=== PATIENT | male | born 1945 | race Caucasian/White ===

== ENCOUNTER → 2016-07-03 | Outpatient (CLI) | payer MEDICARE | END | disposition home or self-care (01) | LOC: GMAB 10:32 | PROVIDERS: ATTEND Family Medicine | DX: Z12.5 Encounter for screening for malignant neoplasm of prostate (principal); I10 Essential (primary) hypertension | CPT/HCPCS: 84443; G0103 ==

== ENCOUNTER → 2016-07-04 | Outpatient (CLI) | payer MEDICARE | END | disposition home or self-care (01) | LOC: GMAB 13:15 | PROVIDERS: ATTEND Family Medicine | DX: E53.8 Deficiency of other specified B group vitamins (principal); E61.1 Iron deficiency ==

== ENCOUNTER → 2016-10-29 | Outpatient (CLI) | payer MEDICARE | END | disposition home or self-care (01) | LOC: GMAB 11:19 | PROVIDERS: ATTEND Family Medicine | DX: D50.8 Other iron deficiency anemias (principal) ==

== ENCOUNTER → 2016-12-02 | Outpatient (CLI) | payer MEDICARE | END | disposition home or self-care (01) | LOC: YCHH 13:07 | PROVIDERS: ATTEND Family Medicine | DX: D64.9 Anemia, unspecified (principal) ==

== ENCOUNTER → 2016-12-03 | Outpatient (CLI) | payer MEDICARE | LOC: SL 21:30 | PROVIDERS: ATTEND Family Medicine | DX: G47.33 Obstructive sleep apnea (adult) (pediatric) (principal); G47.61 Periodic limb movement disorder; F51.09 Other insomnia not due to a substance or known physiological condition; I50.9 Heart failure, unspecified; I10 Essential (primary) hypertension ==

== ENCOUNTER → 2016-12-30 | Outpatient (CLI) | payer MEDICARE | END | disposition home or self-care (01) | LOC: YCHH 14:35 | PROVIDERS: ATTEND Family Medicine | DX: I50.9 Heart failure, unspecified (principal); D50.8 Other iron deficiency anemias; E11.9 Type 2 diabetes mellitus without complications ==

== ENCOUNTER → 2017-01-06 | Outpatient (CLI) | payer MEDICARE | END | disposition home or self-care (01) | LOC: YCHH 09:26 | PROVIDERS: ATTEND Family Medicine | DX: D64.9 Anemia, unspecified (principal) ==

== ENCOUNTER → 2017-01-13 | Outpatient (CLI) | payer MEDICARE | END | disposition home or self-care (01) | LOC: YCHH 13:39 | PROVIDERS: ATTEND Family Medicine | DX: D64.9 Anemia, unspecified (principal) ==

== ENCOUNTER 2017-01-16 04:08 | Emergency (ER) | payer MEDICARE ==
[2017-01-16] MEDS ORDERED: SODIUM CHLORIDE 0.9% (FLUSH) 10 ML SYG IV PRN (04:20)
--- NOTE | 2017-01-16 04:29 | ED.PDOC ---
History of Present Illness - General Chief Complaint: Respiratory Problem Stated Complaint: resp distress Time Seen by Provider: 01/16/17 04:20 Source: patient, EMS notes reviewed, family Exam Limitations: no limitations Additional Information: THIS PATIENT IS BROUGHT BY AMBULANCE AFTER HE IS FOUND CONFUSED AT THE HOUSE. HE HAS COPD AND USES BI-PAP AT HOME BUT TONIGHT HE DIDN'T USE IT. HE IS A NON SMOKER AND HAS BEEN INTUBATED BEFORE. HE RECEIVED SOLU MEDROL 125 MG BY THE MEDICS AND WAS PLACED ON NIPPV EN ROUTE. HE SEEMS ALERT AND ANSWERS QUESTIONS APPROPRIATELY ON ARRIVAL. HE IS TACHYCARDIC. - History of Present Illness Timing/Duration: 1 hour Severity: severe Activities at Onset: sleep Possible Cause: chronic episodes Improving Factors: nothing Worsening Factors: nothing Associated Symptoms: lightheadedness Respiratory Risk Factors: exposure to allergen, pollen Allergies/Adverse Reactions: Allergies NO KNOWN ALLERGY Allergy (Verified 01/16/17 04:19) Home Medications: Ambulatory Orders Albuterol Sulfate Nebs [Proventil Nebs] 2.5 mg INH BID 03/13/15 Albuterol Sulfate Nebs [Proventil Nebs] 2.5 mg INH QID 03/13/15 Aspirin [Goodsense Aspirin] 325 mg PO DAILY 03/13/15 Diazepam [Valium] 1 mg PO BEDTIME 03/13/15 Diltiazem HCl [Cardizem] 60 mg PO TID 03/13/15 Formoterol Fumarate [Foradil Aerolizer] 12 mcg IN BID 03/13/15 Furosemide [Lasix] 40 mg PO BID 03/13/15 Lisinopril [Prinivil] 5 mg PO DAILY 03/13/15 Metformin HCl [Glucophage] 500 mg PO BID 03/13/15 Metoprolol Succinate [Toprol XL] 25 mg PO BID 03/13/15 Prednisolone [Millipred] 5 mg PO PRN PRN 03/13/15 Roflumilast [Daliresp] 500 mcg PO DAILY 03/13/15 Simvastatin [Zocor] 10 mg PO BEDTIME 03/13/15 Spironolactone [Aldactone] 25 mg PO DAILY 03/13/15 Tamsulosin HCl [Flomax] 0.4 mg PO BEDTIME 03/13/15 Tiotropium [place] Monohydrate [Spiriva Handihaler] 18 mcg IN DAILY 03/13/15 raNITIdine HCL [Zantac] 150 mg PO DAILY 03/13/15 Acetaminophen W/ Codeine [Tylenol w/Codeine 300-30 mg] 1 tab PO Q4HR PRN #30 tab 07/17/15 Review of Systems - Review of Systems Constitutional: States: no symptoms reported EENTM: States: no symptoms reported Respiratory: States: short of breath Cardiology: States: palpitations Genitourinary: States: no symptoms reported Musculoskeletal: States: no symptoms reported Skin: States: no symptoms reported Neurological: States: anxiety Endocrine: States: no symptoms reported Hematologic/Lymphatic: States: no symptoms reported All other Systems: Reviewed and Negative, No Change from Baseline Past Medical History (General) - Patient Medical History Hx Seizures: No Hx Stroke: No Hx Asthma: No Hx of COPD: Yes Hx Cardiac Disorders: No Hx Congestive Heart Failure: No Hx Pacemaker: No Hx Hypertension: Yes Hx Diabetes: Yes Hx Gastroesophageal Reflux: Yes Hx MRSA: No - Vaccination History Hx Tetanus, Diphtheria Vaccination: No Hx Influenza Vaccination: Yes - 2014 Hx Pneumococcal Vaccination: No - Social History Hx Tobacco Use: Yes - Quit 2009 Hx Alcohol Use: No Hx Substance Use: No Hx Physical Abuse: No Hx Emotional Abuse: No Family Medical History - Family History Father Family History: No Known Physical Exam - Physical Exam General Appearance: Obvious distress, Restless, Other - MODERATE RESPIRATORY DISTRESS Eyes, Ears, Nose, Throat Exam: PERRL/EOMI Neck: non-tender, supple, normal inspection, other - NO JVD NOTED Respiratory: respiratory distress, decreased breath sounds, rhonchi Cardiovascular/Chest: normal peripheral pulses, regular rate, rhythm, no edema, no gallop, no JVD, no murmur Peripheral Pulses: radial,right: 2+, radial,left: 2+ Gastrointestinal/Abdominal: normal bowel sounds, non tender, soft, no organomegaly, no pulsatile mass Rectal Exam: deferred Extremity: normal range of motion, normal inspection Neurologic: no motor/sensory deficits, alert, normal mood/affect, oriented x 3 Skin Exam: normal color Lymphatic: no adenopathy Progress - Progress Progress: 01/16/17 04:42 ABG'S: PH OF 7.18, PCO2 63, PO2 100 EKG: HR OF 133, WY INTERVAL OF 166, QRS OF 80, QTC OF 389, AXES OF -37 DEGREES , IMPRESSION: SINUS TACHYCARDIA NO ACUTE INJURY PATTERN 01/16/17 05:48 THE PATIENT SEEMS MORE COMFORTABLE BUT ITCHING. LAB IS REPORTED WBC OF 17.4 WITH 77% SEGS, H/H 9.7/31, CMP WITH A CREAT OF 2.3 AND A BUN OF 107 AND POTASSIUM 7.1 01/16/17 05:52 MADE ARRANGEMENT TO TRANSFER TO [facility] AND DR. MICA EPPS ACCEPTED. THE FAMILY NOW DESIRES TO BE TRANSFERRED TO [place], [place] 01/16/17 06:[address] LAZCANO AT [facility] AND ACCEPTED TRANSFER. - EKG/XRAY/CT XRAY: chest - NO ACUTE PROCESS NOTED Departure - Departure Clinical Impression: COPD exacerbation, Hypercarbia, Hyperkalemia, Acute kidney injury superimposed on chronic kidney disease Time of Disposition: 06:04 Disposition: Transfer to Hospital Condition: Poor Departure Forms: ED Discharge - Pt. Copy, Patient Portal Self Enrollment Referrals: Rob Griffith MD [Primary Care Provider] - 1-2 Weeks Home Medications: Ambulatory Orders Albuterol Sulfate Nebs [Proventil Nebs] 2.5 mg INH BID 03/13/15 Albuterol Sulfate Nebs [Proventil Nebs] 2.5 mg INH QID 03/13/15 Aspirin [Goodsense Aspirin] 325 mg PO DAILY 03/13/15 Diazepam [Valium] 1 mg PO BEDTIME 03/13/15 Diltiazem HCl [Cardizem] 60 mg PO TID 03/13/15 Formoterol Fumarate [Foradil Aerolizer] 12 mcg IN BID 03/13/15 Furosemide [Lasix] 40 mg PO BID 03/13/15 Lisinopril [Prinivil] 5 mg PO DAILY 03/13/15 Metformin HCl [Glucophage] 500 mg PO BID 03/13/15 Metoprolol Succinate [Toprol XL] 25 mg PO BID 03/13/15 Prednisolone [Millipred] 5 mg PO PRN PRN 03/13/15 Roflumilast [Daliresp] 500 mcg PO DAILY 03/13/15 Simvastatin [Zocor] 10 mg PO BEDTIME 03/13/15 Spironolactone [Aldactone] 25 mg PO DAILY 03/13/15 Tamsulosin HCl [Flomax] 0.4 mg PO BEDTIME 03/13/15 Tiotropium [place] Monohydrate [Spiriva Handihaler] 18 mcg IN DAILY 03/13/15 raNITIdine HCL [Zantac] 150 mg PO DAILY 03/13/15 Acetaminophen W/ Codeine [Tylenol w/Codeine 300-30 mg] 1 tab PO Q4HR PRN #30 tab 07/17/15 Critical Care Note - Critical Care Note Total Time (mins): 45 Comments: CRITICAL EVENT: DYSPNEA CRITICAL FINDINGS: HYPERCARBIA. HYPERKALEMIA, RENAL FAILURE CRITICAL ACTIONS: NIPPV, KAYEXALYTE, DEXTROSE 50%, INSULIN AND SODIUM BICARBONATE, TRANSFER TO HIGHER LEVEL OF CARE. CRITICAL TIME: 45 MINUTES SYSTEMS AT RISK: CARDIOVASCULAR, NEUROLOGICAL
--- NOTE | 2017-01-16 04:38 | RAD ---
Examination: XR CHEST 1 VIEW dated 01/16/2017 4:21 AM CDT History: resp distress Comparison: 07/20/2015 Technique: Frontal view of the chest Findings: Scattered areas of atelectasis or chronic scarring at the lung bases. No focal consolidation. No pneumothorax or pleural effusion. The cardiomediastinal silhouette is within normal limits. Impression: Scattered atelectasis or chronic scarring at the lung bases. Otherwise no acute disease. Electronically signed by: Rolf Rocha MD 01/16/2017 4:37 AM CDT
[2017-01-16] MEDS ORDERED: diphenhydrAMINE HCL 50 MG/ML VIAL ONE (04:39)
[2017-01-16] MEDS ORDERED: diphenhydrAMINE HCL 50 MG/ML VIAL IV ONE ×2 (04:40→05:17)
[2017-01-16] MEDS ORDERED: IPRATROPIUM/ALBUTEROL 3 ML VIAL NEB ONE (04:47)
[2017-01-16] MEDS ORDERED: DEXTROSE 50% 25 GM/50 ML SYG IV ONE (05:05)
[2017-01-16] MEDS ORDERED: INSULIN, REG.(HUMAN) 100 U/ML VIAL IV ONE (05:05)
[2017-01-16] MEDS ORDERED: SODIUM BICARBONATE VIAL 50 MEQ/50 ML VIAL IV ONE (05:05)
[2017-01-16] MEDS ORDERED: SODIUM BICARBONATE SYRINGE 50 MEQ/50 ML SYG IV ONE (05:11)
[2017-01-16 05:24] VITALS: O2SAT 94
[2017-01-16] MEDS ORDERED: SOD POLYSTYRENE SULFONATE 15 GM/60 ML BTTL PO ONE (05:30)
[2017-01-16] MEDS ORDERED: SODIUM CHLORIDE 0.9% 1000ML 1,000 ML IVS ONE (05:46)
[2017-01-16 06:20] VITALS: BP 164/52; TEMP 98.5
== END 2017-01-16 06:58 | disposition short-term general hospital (02) ==
LOC: ER 04:08
DX: J44.1 Chronic obstructive pulmonary disease with (acute) exacerbation (principal); R06.89 Other abnormalities of breathing; E87.5 Hyperkalemia; N17.9 Acute kidney failure, unspecified; I12.9 Hypertensive chronic kidney disease with stage 1 through stage 4 chronic kidney disease, or unspecified chronic kidney disease; N18.9 Chronic kidney disease, unspecified; E11.9 Type 2 diabetes mellitus without complications; K21.9 Gastro-esophageal reflux disease without esophagitis; Z87.891 Personal history of nicotine dependence; Z79.82 Long term (current) use of aspirin; Z79.899 Other long term (current) drug therapy; Z99.81 Dependence on supplemental oxygen
CPT/HCPCS: 36415; 36600; 71010; 80053; 81001; 82803; 82805; 83880; 84484; 85025; 93005; 94640; 94660; 94760; J1200; J7030; J7620; J7799

== ENCOUNTER → 2017-02-03 | Outpatient (CLI) | payer MEDICARE | END | disposition home or self-care (01) | LOC: YCHH 10:05 | PROVIDERS: ATTEND Family Medicine | DX: E11.9 Type 2 diabetes mellitus without complications (principal); D64.9 Anemia, unspecified; N40.1 Benign prostatic hyperplasia with lower urinary tract symptoms; D50.9 Iron deficiency anemia, unspecified ==

== ENCOUNTER → 2017-02-10 | Outpatient (CLI) | payer MEDICARE | END | disposition home or self-care (01) | LOC: YCHH 13:08 | PROVIDERS: ATTEND Family Medicine | DX: D50.9 Iron deficiency anemia, unspecified (principal); I10 Essential (primary) hypertension; E11.9 Type 2 diabetes mellitus without complications; J44.9 Chronic obstructive pulmonary disease, unspecified; D51.0 Vitamin B12 deficiency anemia due to intrinsic factor deficiency; D52.8 Other folate deficiency anemias; D64.9 Anemia, unspecified ==

== ENCOUNTER 2017-02-20 11:23 | Emergency (ER) | payer MEDICARE ==
[2017-02-20 11:50] VITALS: TEMP 98.7
[2017-02-20] MEDS ORDERED: IPRATROPIUM/ALBUTEROL 3 ML VIAL NEB ONE (11:51)
--- NOTE | 2017-02-20 11:54 | ED.PDOC ---
History of Present Illness - General Chief Complaint: Respiratory Problem Stated Complaint: shortness of breath Time Seen by Provider: 02/20/17 11:26 Source: patient, RN notes reviewed, Vital Signs reviewed Exam Limitations: no limitations - History of Present Illness Initial Comments: Patient was told to come in by his home health nurse due to his CO2 being too high on recent labs. He does report increased swelling in his feet recently. Also and episode of SOB last night. He is normally on 5L of Oxygen at home. Currently he is just feeling a little lightheaded. Timing/Duration: 24 hours Severity: moderate Activities at Onset: none Possible Cause: frequent episodes - due to both COPD and CHF Improving Factors: nothing Worsening Factors: nothing Associated Symptoms: cough - Mild - takes mucinex daily, lightheadedness Allergies/Adverse Reactions: Allergies NO KNOWN ALLERGY Allergy (Verified 01/16/17 04:19) Home Medications: Ambulatory Orders Albuterol Sulfate Nebs [Proventil Nebs] 2.5 mg INH BID 03/13/15 Albuterol Sulfate Nebs [Proventil Nebs] 2.5 mg INH QID 03/13/15 Aspirin [Goodsense Aspirin] 325 mg PO DAILY 03/13/15 Diazepam [Valium] 1 mg PO BEDTIME 03/13/15 Diltiazem HCl [Cardizem] 60 mg PO TID 03/13/15 Formoterol Fumarate [Foradil Aerolizer] 12 mcg IN BID 03/13/15 Furosemide [Lasix] 40 mg PO BID 03/13/15 Lisinopril [Prinivil] 5 mg PO DAILY 03/13/15 Metformin HCl [Glucophage] 500 mg PO BID 03/13/15 Metoprolol Succinate [Toprol XL] 25 mg PO BID 03/13/15 Prednisolone [Millipred] 5 mg PO PRN PRN 03/13/15 Roflumilast [Daliresp] 500 mcg PO DAILY 03/13/15 Simvastatin [Zocor] 10 mg PO BEDTIME 03/13/15 Spironolactone [Aldactone] 25 mg PO DAILY 03/13/15 Tamsulosin HCl [Flomax] 0.4 mg PO BEDTIME 03/13/15 Tiotropium [place] Monohydrate [Spiriva Handihaler] 18 mcg IN DAILY 03/13/15 raNITIdine HCL [Zantac] 150 mg PO DAILY 03/13/15 Acetaminophen W/ Codeine [Tylenol w/Codeine 300-30 mg] 1 tab PO Q4HR PRN #30 tab 07/17/15 Review of Systems - Review of Systems Constitutional: States: no symptoms reported EENTM: States: no symptoms reported Respiratory: States: see HPI, cough, short of breath Cardiology: States: edema. Denies: chest pain Musculoskeletal: States: no symptoms reported Skin: States: no symptoms reported Neurological: States: no symptoms reported All other Systems: No Change from Baseline Past Medical History (General) - Patient Medical History Hx Seizures: No Hx Stroke: No Hx Asthma: No Hx of COPD: Yes Hx Cardiac Disorders: No Hx Congestive Heart Failure: No Hx Pacemaker: No Hx Hypertension: Yes Hx Diabetes: Yes Hx Gastroesophageal Reflux: Yes Hx MRSA: No Surgical History: appendectomy - Vaccination History Hx Tetanus, Diphtheria Vaccination: No Hx Influenza Vaccination: Yes - 2014 Hx Pneumococcal Vaccination: No - Social History Hx Tobacco Use: Yes - Quit 2009 Hx Alcohol Use: No Hx Substance Use: No Hx Physical Abuse: No Hx Emotional Abuse: No Family Medical History - Family History Father Family History: No Known Physical Exam - Physical Exam General Appearance: Alert, Comfortable, No apparent distress, Well Developed, Well Groomed, Well Hydrated, Well Nourished Neck: supple, normal inspection Respiratory: no respiratory distress, no accessory muscle use, decreased breath sounds, wheezing - Mild throughout Cardiovascular/Chest: regular rate, rhythm, no gallop, no murmur Peripheral Pulses: dorsalis pedis,right: 2+, dorsalis pedis,left: 2+ Extremity: normal range of motion, non-tender, pedal edema - 1+ pitting edema @ ankles Neurologic: alert, normal mood/affect, oriented x 3 Skin Exam: normal color, warm/dry Comments: Vital Signs 02/20/17 11:32 Temperature 98.7 F Pulse Rate [ 82 apical] Respiratory 22 Rate Blood Pressure 142/66 [right brachial ] O2 Sat by Pulse 93 L Oximetry Progress - Progress Progress: 02/20/17 13:14 Patient has been comfortable for his whole visit. No respiratory distress. He has been using his BIPAP at home. Labs are at his baseline or normal except for elevated CO2 Will d/c home, recommended follow up for repeat CO2 level next week to see if the mild elevation is his new normal. ER warnings given. - Results/Orders Results/Orders: Laboratory Tests 02/20/17 02/20/17 02/20/17 12:02 12:02 12:02 WBC 11.7 H RBC 3.76 L Hgb 9.9 L Hct 31.6 L MCV 84.2 MCH 26.3 L MCHC 31.2 L RDW 17.2 H Plt Count 279 MPV 7.9 Absolute Neuts (auto) 9.20 H Absolute Lymphs (auto) 1.20 Absolute Monos (auto) 1.00 H Absolute Eos (auto) 0.20 Absolute Basos (auto) 0.00 Neutrophils % 79.0 H Lymphocytes % 10.4 L Monocytes % 8.3 Eosinophils % 2.1 Basophils % 0.2 D-Dimer, Quantitative pCO2 pO2 HCO3 ABG pH ABG O2 Saturation ABG Base Excess ABG Deoxyhemoglobin Oxyhemoglobin % Carboxyhemoglobin % Methemoglobin % Sat Calc Total Hemoglobin Sodium 139 Potassium 3.3 L Chloride 95 L Carbon Dioxide 37 H Anion Gap 10.3 L BUN 14 Creatinine 0.90 BUN/Creatinine Ratio 15.6 Random Glucose 141 H D Serum Osmolality 280.4 Calcium 8.8 Total Bilirubin 0.4 AST 25 ALT 25 Alkaline Phosphatase 76 Creatine Kinase 72 CK-MB (CK-2) 2.9 CK-MB (CK-2) % Not Reportable Troponin I < 0.02 B-Natriuretic Peptide 27.6 Serum Total Protein 7.1 Albumin 3.6 Globulin 3.5 Albumin/Globulin Ratio 1.0 L 02/20/17 02/20/17 12:02 12:11 WBC RBC Hgb Hct MCV MCH MCHC RDW Plt Count MPV Absolute Neuts (auto) Absolute Lymphs (auto) Absolute Monos (auto) Absolute Eos (auto) Absolute Basos (auto) Neutrophils % Lymphocytes % Monocytes % Eosinophils % Basophils % D-Dimer, Quantitative < 230 pCO2 69 H pO2 87 HCO3 37.9 ABG pH 7.360 ABG O2 Saturation 98.2 ABG Base Excess 10.8 ABG Deoxyhemoglobin 1.7 Oxyhemoglobin % 95.7 Carboxyhemoglobin % 1.5 Methemoglobin % Sat 1.1 Calc Total Hemoglobin 10.4 L Sodium Potassium Chloride Carbon Dioxide Anion Gap BUN Creatinine BUN/Creatinine Ratio Random Glucose Serum Osmolality Calcium Total Bilirubin AST ALT Alkaline Phosphatase Creatine Kinase CK-MB (CK-2) CK-MB (CK-2) % Troponin I B-Natriuretic Peptide Serum Total Protein Albumin Globulin Albumin/Globulin Ratio - EKG/XRAY/CT XRAY: chest - Linear opacities BLL, mildly more prominent than prior, Atelectasis Vs scaring per Rad Departure - Departure Clinical Impression: Hypercarbia COPD (chronic obstructive pulmonary disease) Qualifiers: COPD type: emphysema Emphysema type: panlobular 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 Copy, Patient Portal Self Enrollment Instructions: DI for Chronic Obstructive Pulmonary Disease Diet: resume usual diet Activity: increase activity as tolerated Referrals: Rob Griffith MD [Primary Care Provider] - 1 Week (to recheck CO2 level) Home Medications: Ambulatory Orders Albuterol Sulfate Nebs [Proventil Nebs] 2.5 mg INH BID 03/13/15 Albuterol Sulfate Nebs [Proventil Nebs] 2.5 mg INH QID 03/13/15 Aspirin [Goodsense Aspirin] 325 mg PO DAILY 03/13/15 Diazepam [Valium] 1 mg PO BEDTIME 03/13/15 Diltiazem HCl [Cardizem] 60 mg PO TID 03/13/15 Formoterol Fumarate [Foradil Aerolizer] 12 mcg IN BID 03/13/15 Furosemide [Lasix] 40 mg PO BID 03/13/15 Lisinopril [Prinivil] 5 mg PO DAILY 03/13/15 Metformin HCl [Glucophage] 500 mg PO BID 03/13/15 Metoprolol Succinate [Toprol XL] 25 mg PO BID 03/13/15 Prednisolone [Millipred] 5 mg PO PRN PRN 03/13/15 Roflumilast [Daliresp] 500 mcg PO DAILY 03/13/15 Simvastatin [Zocor] 10 mg PO BEDTIME 03/13/15 Spironolactone [Aldactone] 25 mg PO DAILY 03/13/15 Tamsulosin HCl [Flomax] 0.4 mg PO BEDTIME 03/13/15 Tiotropium [place] Monohydrate [Spiriva Handihaler] 18 mcg IN DAILY 03/13/15 raNITIdine HCL [Zantac] 150 mg PO DAILY 11/24/15 Acetaminophen W/ Codeine [Tylenol w/Codeine 300-30 mg] 1 tab PO Q4HR PRN #30 tab 07/17/15
--- NOTE | 2017-02-20 12:40 | RAD ---
EXAM DESCRIPTION: Chest,2 Views CLINICAL HISTORY: Shortness of breath COMPARISON: January 16, 2017 Findings/impression: Frontal and lateral views of the chest. Cardiac silhouette and pulmonary vascularity are within normal limits. Linear opacities in the bilateral lower lung zones are slightly more prominent on today's examination relative to January 16, 2017. These may represent linear atelectasis and/or scarring of the lung bases. Underlying infiltrate cannot be entirely excluded, although felt less likely. Please correlate clinically. No significant pleural effusion. No pneumothorax. No acute osseous abnormality. Electronically signed by: Christiano Ivan MD 02/20/2017 12:39 PM CDT
[2017-02-20 13:50] VITALS: BP 142/80; O2SAT 95
== END 2017-02-20 13:35 | disposition home or self-care (01) ==
LOC: ER 11:23
DX: J43.1 Panlobular emphysema (principal); R06.89 Other abnormalities of breathing; Z87.891 Personal history of nicotine dependence; I10 Essential (primary) hypertension; E11.9 Type 2 diabetes mellitus without complications; K21.9 Gastro-esophageal reflux disease without esophagitis; Z79.899 Other long term (current) drug therapy; Z79.82 Long term (current) use of aspirin
CPT/HCPCS: 36415; 36600; 71020; 80053; 82550; 82553; 82803; 82805; 83880; 84484; 85025; 85379; 94640; J7620

== ENCOUNTER → 2017-02-20 | Outpatient (CLI) | payer MEDICARE | END | disposition home or self-care (01) | LOC: YCHH 09:34 | PROVIDERS: ATTEND Family Medicine | DX: E87.5 Hyperkalemia (principal); E11.9 Type 2 diabetes mellitus without complications ==

== ENCOUNTER → 2017-07-02 | Outpatient (CLI) | payer MEDICARE | LOC: YCHH 09:56 | PROVIDERS: ATTEND Family Medicine | DX: E11.9 Type 2 diabetes mellitus without complications (principal); D64.9 Anemia, unspecified; I10 Essential (primary) hypertension; E03.9 Hypothyroidism, unspecified; E78.5 Hyperlipidemia, unspecified ==

== ENCOUNTER → 2017-07-06 | Outpatient (CLI) | payer MEDICARE | LOC: YCHH 09:11 | PROVIDERS: ATTEND Family Medicine | DX: E11.9 Type 2 diabetes mellitus without complications (principal); D64.9 Anemia, unspecified; I10 Essential (primary) hypertension; E78.5 Hyperlipidemia, unspecified; E03.9 Hypothyroidism, unspecified; Z12.5 Encounter for screening for malignant neoplasm of prostate ==

== ENCOUNTER 2017-07-21 10:45 | Emergency (ER) | payer MEDICARE ==
--- NOTE | 2017-07-21 11:10 | ED.PDOC ---
History of Present Illness - General Chief Complaint: Eye Problems Stated Complaint: swelling right upper lid Time Seen by Provider: 07/21/17 11:07 Source: patient Exam Limitations: no limitations - History of Present Illness Initial Comments: Deric Matos 72 y/o male stated that his right upper lid swollen for the last several months but worse today with drainage and erythema.No history of trauma to right eye. Timing/Duration: other - see hpi Severity: moderate EENT Location: eye (R) - eyelid upper Prearrival Treatment: no prearrival treatment Presenting Symptoms: see cc/hpi Improving Factors: nothing Worsening Factors: nothing Associated Symptoms: denies symptoms Allergies/Adverse Reactions: Allergies NO KNOWN ALLERGY Allergy (Verified 07/21/17 11:25) Home Medications: Ambulatory Orders Albuterol Sulfate Nebs [Proventil Nebs] 2.5 mg INH BID 03/13/15 Albuterol Sulfate Nebs [Proventil Nebs] 2.5 mg INH QID 03/13/15 Aspirin [Goodsense Aspirin] 325 mg PO DAILY 03/13/15 Diazepam [Valium] 1 mg PO BEDTIME 03/13/15 Diltiazem HCl [Cardizem] 60 mg PO TID 03/13/15 Formoterol Fumarate [Foradil Aerolizer] 12 mcg IN BID 03/13/15 Furosemide [Lasix] 40 mg PO BID 03/13/15 Lisinopril [Prinivil] 5 mg PO DAILY 03/13/15 Metformin HCl [Glucophage] 500 mg PO BID 03/13/15 Metoprolol Succinate [Toprol XL] 25 mg PO BID 03/13/15 Prednisolone [Millipred] 5 mg PO PRN PRN 03/13/15 Roflumilast [Daliresp] 500 mcg PO DAILY 03/13/15 Simvastatin [Zocor] 10 mg PO BEDTIME 03/13/15 Spironolactone [Aldactone] 25 mg PO DAILY 03/13/15 Tamsulosin HCl [Flomax] 0.4 mg PO BEDTIME 03/13/15 Tiotropium [place] Monohydrate [Spiriva Handihaler] 18 mcg IN DAILY 03/13/15 raNITIdine HCL [Zantac] 150 mg PO DAILY 03/13/15 Acetaminophen W/ Codeine [Tylenol w/Codeine 300-30 mg] 1 tab PO Q4HR PRN #30 tab 07/17/15 Review of Systems - Review of Systems Constitutional: States: no symptoms reported EENTM: States: no symptoms reported Skin: States: see HPI, other - swelling right upper lid All other Systems: Reviewed and Negative, No Change from Baseline Past Medical History (General) - Patient Medical History Hx Seizures: No Hx Stroke: No Hx Asthma: No Hx of COPD: Yes Hx Cardiac Disorders: No Hx Congestive Heart Failure: No Hx Pacemaker: No Hx Hypertension: Yes Hx Diabetes: Yes Hx Gastroesophageal Reflux: Yes Hx MRSA: No - Vaccination History Hx Tetanus, Diphtheria Vaccination: No Hx Influenza Vaccination: Yes - 2014 Hx Pneumococcal Vaccination: No - Social History Hx Tobacco Use: Yes - Quit 2009 Hx Alcohol Use: No Hx Substance Use: No Hx Physical Abuse: No Hx Emotional Abuse: No - Activities of Daily Living Grooming Ability: Independent Eating (Feeding) Ability: Independent Toileting Ability: Independent Family Medical History - Family History Father Family History: No Known Hx Family Stroke: Yes - dad-ruptured brain anaeurysm Physical Exam - Physical Exam General Appearance: Alert, Comfortable Eye Exam: right other - skin lesion right upper eyelid, bilateral normal Ear Exam: bilateral ear: auricle normal, canal normal, TM normal Nasal Exam: normal inspection Throat Exam: normal mouth inspection, pharynx normal Neck: non-tender, full range of motion, supple Cardiovascular/Respiratory: regular rate, rhythm, no M/R/G, normal peripheral pulses Abdominal Exam: non-tender, no organomegaly Neurologic: alert, oriented x 3 Skin Exam: normal color, warm/dry Progress - Progress Progress: 07/21/17 11:46 Vital Signs - 8 hr 07/21/17 10:55 Temperature 99.2 F Pulse Rate [ 85 pulse ox] Respiratory 20 Rate Blood Pressure 146/72 [Left Arm] O2 Sat by Pulse 91 L Oximetry - Results/Orders Results/Orders: Elevated lesion right upper eyelid cleansed with sterile water then Lidocaine 1 % skin infiltration done then skin incision along the upper lid done then squeezed out encapsulated sebaceous material shown to patient and . Erythromycin eye ointment applied to incision site Departure - Departure Clinical Impression: Epidermal inclusion cyst of right eyelid Time of Disposition: 11:52 Disposition: Discharge to Home or Self Care Condition: Fair Departure Forms: ED Discharge - Pt. Copy, Patient Portal Self Enrollment Instructions: DI for Epidermal Cyst, Epidermal Cyst Referrals: Rob Griffith MD [Primary Care Provider] - 1-2 Weeks Home Medications: Ambulatory Orders Albuterol Sulfate Nebs [Proventil Nebs] 2.5 mg INH BID 03/13/15 Albuterol Sulfate Nebs [Proventil Nebs] 2.5 mg INH QID 03/13/15 Aspirin [Goodsense Aspirin] 325 mg PO DAILY 03/13/15 Diazepam [Valium] 1 mg PO BEDTIME 03/13/15 Diltiazem HCl [Cardizem] 60 mg PO TID 03/13/15 Formoterol Fumarate [Foradil Aerolizer] 12 mcg IN BID 03/13/15 Furosemide [Lasix] 40 mg PO BID 03/13/15 Lisinopril [Prinivil] 5 mg PO DAILY 03/13/15 Metformin HCl [Glucophage] 500 mg PO BID 03/13/15 Metoprolol Succinate [Toprol XL] 25 mg PO BID 03/13/15 Prednisolone [Millipred] 5 mg PO PRN PRN 03/13/15 Roflumilast [Daliresp] 500 mcg PO DAILY 03/13/15 Simvastatin [Zocor] 10 mg PO BEDTIME 03/13/15 Spironolactone [Aldactone] 25 mg PO DAILY 03/13/15 Tamsulosin HCl [Flomax] 0.4 mg PO BEDTIME 03/13/15 Tiotropium [place] Monohydrate [Spiriva Handihaler] 18 mcg IN DAILY 03/13/15 raNITIdine HCL [Zantac] 150 mg PO DAILY 03/13/15 Acetaminophen W/ Codeine [Tylenol w/Codeine 300-30 mg] 1 tab PO Q4HR PRN #30 tab 07/17/15 Additional Instructions: Return to ER as needed;Continue with erythromycin ointment apply to affected area 3 x a day until gone
[2017-07-21] MEDS ORDERED: LIDOCAINE 1% 10 ML VIAL INJ ONE (11:18)
[2017-07-21 11:26] VITALS: TEMP 99.2
[2017-07-21] MEDS ORDERED: ERYTHROMYCIN OPHTH OINT 1 APPLIC ONE (11:32)
[2017-07-21] MEDS ORDERED: ERYTHROMYCIN OPHTH OINT 1 APPLIC RIGHT_EYE ONE (12:02)
[2017-07-21 12:16] VITALS: BP 145/79; O2SAT 92
== END 2017-07-21 12:05 | disposition home or self-care (01) ==
LOC: ER 10:45
DX: H02.821 Cysts of right upper eyelid (principal); J44.9 Chronic obstructive pulmonary disease, unspecified; I10 Essential (primary) hypertension; E11.9 Type 2 diabetes mellitus without complications; K21.9 Gastro-esophageal reflux disease without esophagitis; Z87.891 Personal history of nicotine dependence; Z79.899 Other long term (current) drug therapy; Z79.82 Long term (current) use of aspirin

== ENCOUNTER → 2018-01-27 | Outpatient (CLI) | payer MEDICARE, OTHER ==
--- NOTE | 2018-01-27 16:06 | CT ---
Procedure: CT LUNG SCREENING Exam Date: 01/27/2018 Ordering Provider: SHEMAR FAJARDO Clinical Indication: COPD. 80 pack-year smoking history. Stopped smoking 9 years ago. This patient meets eligibility criteria for low-dose CT lung cancer screening. Comparison: None. Technique: Using a multislice scanner, sequential helical axial imaging was obtained in the thorax, 2.5 mm thickness, 2.5 mm separation, from the level of the thoracic inlet through the lung bases without IV contrast. A low dose protocol was utilized. CTDI: 1.75 mGy. 120. kVp. 45 mA. 2D sagittal and coronal reconstructed images, 6.0 mm thickness, were obtained. This exam was performed according to our departmental dose optimization program which includes use of automated exposure control, adjustment of the mA and/or kV according to patient size and/or use of iterative reconstruction technique. FINDINGS: Lungs and large airways: Solid mass in the superior segment of the right lower lobe abutting the posterior medial pleura and the mid posterior right hilum. Partially lobulated and spiculated margins with extensions to the pleura and hilum. Dimensions approximately 4.0 x 3.6 x 4.0 cm. Partially abutting the RIGHT superior segmental branch of the bronchus. No definite calcification in the mass. Scarring in the medial right lower lobe basilar segments and minimal groundglass peripheral density in the right lower lobe. Linear scarring in the inferior lateral right middle lobe. Minimal perihilar peribronchial wall cuffing bilaterally. Diffuse groundglass density in the inferior lateral lingula. Bilateral multiple blebs in a centrilobular distribution more prevalent in the upper outer lung staples compared to the lower lung staples. No other masses or abnormal nodules bilaterally. Pleura: Questionable calcification in a small segment of pleural thickening posterior medial right abutting the right lower lobe medial segment. No definite pleural mass. No effusion or pneumothorax. Mediastinum and jonah: evaluation limited by low-dose technique and lack of IV contrast. A nonreactive lymph node with no enlargement in the azygos region. Question of a 1.5 x 1.1 cm reactive subcarinal node at the level of the upper margin of the mass. No large lymph nodes in either hilum. Heart and great vessels: Atherosclerotic changes in the proximal brachiocephalic vessels and thoracic aorta. Chest wall, lower neck, axillae: Evaluation also limited same factors as described above. No definitive soft tissue mass. No enlarged lymph nodes in the axilla or neck base. Thyroid gland visualized. Upper abdomen: No fluid or soft tissue mass in the included peritoneal cavity. Normal size and density of the included adrenal glands and spleen. Bones: evaluation limited by low-dose MIP technique. No gross lytic or blastic lesions. Scattered levels of spondylosis in the thoracic spine. IMPRESSION: 1. 4 cm solid mass with lobulated and spiculated margins without calcification in the. Right lower lobe with small dense extensions to the mid right hilum and pleura. Findings most suggestive of primary lung carcinoma. No satellite lesions or lesions in the left lung. Possibly enlarged reactive lymph node in the subcarinal region abutting the pleura at the level of the upper margins of the mass. Consider image guided tissue diagnosis, follow-up chest CT scan with IV contrast for better evaluation of the mediastinum and hilum, and imaging for staging such as PET CT scan and/or abdominal pelvic CT scan with IV contrast. 2. Emphysematous changes more prevalent in the upper lung staples compared to lower lung staples. Bilateral groundglass densities and pulmonary scarring. No pleural effusion or pneumothorax. Lung RADS category Category 4x - Suspicious - findings for which additional diagnostic testing and/or tissue sampling is recommended (greater than 15% malignancy probability). Nodules: Category 3 or 4 nodule(s) with additional features or imaging findings that increases the suspicion of malignancy. Follow-up: Please return for a Chest CT with or without contrast, PET/CT and/or tissue sampling depending on the "probability of malignancy and comorbidities." PET/CT may be used when there is an 8mm or greater solid component. CRITICAL COMMUNICATION: The critical value was discussed directly by phone with Dr. Fajardo's associate, PEGGY Cruz, at approximately 1520 hours, on January 27, 2018. Electronically signed by: Db Augustin MD 01/27/2018 4:04 PM CDT
== END ==
LOC: CT 09:00
PROVIDERS: ATTEND Emergency Medicine
DX: J44.9 Chronic obstructive pulmonary disease, unspecified (principal); R91.1 Solitary pulmonary nodule; Z87.891 Personal history of nicotine dependence

== ENCOUNTER → 2018-03-23 | Outpatient (CLI) | payer MEDICARE, OTHER | LOC: YCHH 10:07 | PROVIDERS: ATTEND Emergency Medicine | DX: D64.9 Anemia, unspecified (principal); E11.9 Type 2 diabetes mellitus without complications; N40.0 Benign prostatic hyperplasia without lower urinary tract symptoms; E03.9 Hypothyroidism, unspecified; N18.9 Chronic kidney disease, unspecified; E78.5 Hyperlipidemia, unspecified ==

== ENCOUNTER 2018-04-26 10:19 | Emergency (ER) | payer MEDICARE, OTHER ==
[2018-04-26 10:48] VITALS: TEMP 98.8
--- NOTE | 2018-04-26 11:11 | RAD ---
EXAM DESCRIPTION: Hip,Right 2 Views CLINICAL HISTORY: Right hip pain for 2 days FINDINGS/ IMPRESSION: Nonspherical femoral head neck junction predisposing to femoroacetabular impingement. No advanced arthrosis or focal osteochondral lesion of the hip. No fracture. No diagnostic density or contour abnormality of the femoral head although limited evaluation given the significant soft tissue overlap Electronically signed by: Carmine Thomas MD 04/26/2018 11:09 AM RUST
--- NOTE | 2018-04-26 11:25 | ED.PDOC ---
History of Present Illness - General Chief Complaint: Lower Extremity Injury Stated Complaint: hip,knee pain with numbness Time Seen by Provider: 04/26/18 10:38 Source: patient Exam Limitations: no limitations - History of Present Illness Initial Comments: the patient is a 73-year-old male presenting to the emergency room secondary to right hip pain that started a couple of days ago and has gotten worse. Is able to bear weight on it but does have some pain with movement. There is no actual sensory change. No decrease in strength. Range of motion is actually still preserved. He does have some tenderness to palpation around the hip primarily posteriorly. No palpable deformity. No crepitus. No injuring event. Timing/Duration: other - 2 days Severity: moderate Improving Factors: immobilization Worsening Factors: movement Associated Symptoms: denies symptoms Allergies/Adverse Reactions: Allergies NO KNOWN ALLERGY Allergy (Verified 07/21/17 11:25) Home Medications: Ambulatory Orders Albuterol Sulfate Nebs [Proventil Nebs] 2.5 mg INH BID 03/13/15 Albuterol Sulfate Nebs [Proventil Nebs] 2.5 mg INH QID 03/13/15 Aspirin [Goodsense Aspirin] 325 mg PO DAILY 03/13/15 Diazepam [Valium] 1 mg PO BEDTIME 03/13/15 Diltiazem HCl [Cardizem] 60 mg PO TID 03/13/15 Formoterol Fumarate [Foradil Aerolizer] 12 mcg IN BID 03/13/15 Furosemide [Lasix] 40 mg PO BID 03/13/15 Lisinopril [Prinivil] 5 mg PO DAILY 03/13/15 Metformin HCl [Glucophage] 500 mg PO BID 03/13/15 Metoprolol Succinate [Toprol XL] 25 mg PO BID 03/13/15 Prednisolone [Millipred] 5 mg PO PRN PRN 03/13/15 Roflumilast [Daliresp] 500 mcg PO DAILY 03/13/15 Simvastatin [Zocor] 10 mg PO BEDTIME 03/13/15 Spironolactone [Aldactone] 25 mg PO DAILY 03/13/15 Tamsulosin HCl [Flomax] 0.4 mg PO BEDTIME 03/13/15 Tiotropium [place] Monohydrate [Spiriva Handihaler] 18 mcg IN DAILY 03/13/15 raNITIdine HCL [Zantac] 150 mg PO DAILY 03/13/15 Acetaminophen W/ Codeine [Tylenol w/Codeine 300-30 mg] 1 tab PO Q4HR PRN #30 tab 07/17/15 Tramadol HCl 50 mg PO Q8HR PRN #20 tab 04/26/18 Review of Systems - Review of Systems Review of Systems: 04/26/18 11:24 for new symptoms only Constitutional: States: no symptoms reported EENTM: States: no symptoms reported Respiratory: States: no symptoms reported Cardiology: States: no symptoms reported Gastrointestinal/Abdominal: States: no symptoms reported Genitourinary: States: no symptoms reported Musculoskeletal: States: see HPI Skin: States: no symptoms reported Neurological: States: no symptoms reported Endocrine: States: no symptoms reported All other Systems: No Change from Baseline Past Medical History (General) - Patient Medical History Hx Seizures: No Hx Stroke: No Hx Asthma: No Hx of COPD: Yes Hx Cardiac Disorders: No Hx Congestive Heart Failure: No Hx Pacemaker: No Hx Hypertension: Yes Hx Diabetes: Yes Hx Gastroesophageal Reflux: Yes Hx Cancer: No Hx MRSA: No Surgical History: appendectomy - Vaccination History Hx Tetanus, Diphtheria Vaccination: Yes Hx Influenza Vaccination: Yes Hx Pneumococcal Vaccination: Yes Immunizations Up to Date: Yes - Social History Hx Tobacco Use: Yes - Quit 2009 Hx Alcohol Use: No Hx Substance Use: No Hx Physical Abuse: No Hx Emotional Abuse: No Family Medical History - Family History Father Family History: No Known Hx Family Stroke: Yes - dad-ruptured brain anaeurysm Physical Exam - Physical Exam General Appearance: Alert, Comfortable, No apparent distress Eye Exam: bilateral normal Ears, Nose, Throat: hearing grossly normal, normal pharynx Neck: non-tender, supple Respiratory: no respiratory distress - he is on oxygen, no accessory muscle use Cardiovascular/Chest: normal peripheral pulses, no edema Peripheral Pulses: radial,right: 2+, radial,left: 2+ Gastrointestinal/Abdominal: non tender, soft Rectal Exam: deferred Extremity: normal range of motion, no pedal edema, no calf tenderness, normal capillary refill, other - see history of present illness Neurologic: processing clerk II-XII nml as tested, alert, normal mood/affect, oriented x 3 Skin Exam: normal color Comments: Vital Signs - 24 hr 04/26/18 10:40 Temperature 98.8 F Pulse Rate [ 101 H monitor] Respiratory 20 Rate Blood Pressure 148/66 [la] O2 Sat by Pulse 92 L Oximetry Progress - Progress Progress: 04/26/18 11:25 the patient is a 73-year-old male presenting to the emergency room secondary to subacute right hip pain. X-ray showed no evidence of any fracture or dislocation. He does have some mild chronic deformity of the femur head and neck junction that is likely causing some inflammation. He does need to do stretching exercises. Topical heat is recommended. He will be written for some tramadol for as needed use over the next few days but he does need to be careful as this can cause constipation. He needs to ambulate carefully. He should expect one to 2 weeks of soreness. Follow back up with primary care doct or. Departure - Departure Clinical Impression: Acute right hip pain Disposition: Discharge to Home or Self Care Condition: Fair Departure Forms: ED Discharge - Pt. Copy, Patient Portal Self Enrollment Diet: diabetic diet Activity: increase activity as tolerated Referrals: SHEMAR FAJARDO [Primary Care Provider] - 1-2 Weeks Prescriptions: Tramadol HCl 50 mg PO Q8HR PRN #20 tab PRN Reason: Moderate To Severe Pain Home Medications: Ambulatory Orders Albuterol Sulfate Nebs [Proventil Nebs] 2.5 mg INH BID 03/13/15 Albuterol Sulfate Nebs [Proventil Nebs] 2.5 mg INH QID 03/13/15 Aspirin [Goodsense Aspirin] 325 mg PO DAILY 03/13/15 Diazepam [Valium] 1 mg PO BEDTIME 03/13/15 Diltiazem HCl [Cardizem] 60 mg PO TID 03/13/15 Formoterol Fumarate [Foradil Aerolizer] 12 mcg IN BID 03/13/15 Furosemide [Lasix] 40 mg PO BID 03/13/15 Lisinopril [Prinivil] 5 mg PO DAILY 03/13/15 Metformin HCl [Glucophage] 500 mg PO BID 03/13/15 Metoprolol Succinate [Toprol XL] 25 mg PO BID 03/13/15 Prednisolone [Millipred] 5 mg PO PRN PRN 03/13/15 Roflumilast [Daliresp] 500 mcg PO DAILY 03/13/15 Simvastatin [Zocor] 10 mg PO BEDTIME 03/13/15 Spironolactone [Aldactone] 25 mg PO DAILY 03/13/15 Tamsulosin HCl [Flomax] 0.4 mg PO BEDTIME 03/13/15 Tiotropium [place] Monohydrate [Spiriva Handihaler] 18 mcg IN DAILY 03/13/15 raNITIdine HCL [Zantac] 150 mg PO DAILY 03/13/15 Acetaminophen W/ Codeine [Tylenol w/Codeine 300-30 mg] 1 tab PO Q4HR PRN #30 tab 07/17/15 Tramadol HCl 50 mg PO Q8HR PRN #20 tab 04/26/18 Additional Instructions: the patient is a 73-year-old male presenting to the emergency room secondary to subacute right hip pain. X-ray showed no evidence of any fracture or dislocation. He does have some mild chronic deformity of the femur head and neck junction that is likely causing some inflammation. He does need to do stretching exercises. Topical heat is recommended. He will be written for some tramadol for as needed use over the next few days but he does need to be careful as this can cause constipation. He needs to ambulate carefully. He should expect one to 2 weeks of soreness. Follow back up with primary care doctor.
[2018-04-26 12:16] VITALS: BP 144/75; O2SAT 96
== END 2018-04-26 11:35 | disposition home or self-care (01) ==
LOC: ER 10:19
DX: M25.551 Pain in right hip (principal); K21.9 Gastro-esophageal reflux disease without esophagitis; J44.9 Chronic obstructive pulmonary disease, unspecified; E11.9 Type 2 diabetes mellitus without complications; I10 Essential (primary) hypertension; Z87.891 Personal history of nicotine dependence; Z79.84 Long term (current) use of oral hypoglycemic drugs; Z79.899 Other long term (current) drug therapy

== ENCOUNTER 2018-05-22 08:54 | Inpatient (IN) | payer MEDICARE ==
[2018-05-22] MEDS ORDERED: IPRATROPIUM/ALBUTEROL 3 ML VIAL NEB ONE (09:02)
[2018-05-22] MEDS ORDERED: methylPREDNISolone SODIUM SUC 125 MG/2 ML VIAL IV ONE (09:03)
--- NOTE | 2018-05-22 09:22 | RAD ---
EXAM DESCRIPTION: Chest,1 View CLINICAL HISTORY: shortness of breath/copd exac COMPARISON: 02/20/2017 FINDINGS: Cardiac silhouette is within normal limits. There is new consolidation at the medial midlung/right lung base. Underlying mass is not excluded. Atelectasis involves the right lung base laterally. There is mildly increased pulmonary edema bilaterally. IMPRESSION: Right perihilar consolidation and increased pulmonary edema. Electronically signed by: Db Mcneill 05/22/2018 9:20 AM [employer]ING[employer]GER
--- NOTE | 2018-05-22 09:27 | ED.PDOC ---
History of Present Illness - General Chief Complaint: Respiratory Problem Stated Complaint: Difficulty breathing Time Seen by Provider: 05/22/18 09:01 Source: patient, family, EMS Exam Limitations: no limitations - History of Present Illness Initial Comments: patient comes in today via EMS for shortness of breath. Patient has oxygen dependent COPD and a right perihilar mass that was recently seen on CT scan and is considered most likely malignant. Patient has decided not to have it biopsied or treated. Patient states yesterday started feeling sick and by today despite 2 breathing treatments on his own and one breathing treatment by EMS he continued to be very short of breath. He normally requires 5 L by nasal cannula and on that he was still running in the 80s when EMS arrived. After breathing treatment he is closer to baseline. Patient has been coughing up some yellow purulent sputum and he has felt some chills but no definitive fever and he was afebrile on arrival by EMS. Patient's had some nasal congestion no sore throat no nausea or vomiting. Patient's past medical history is significant for diabetes mellitus, hypertension, pulmonary mass, and COPD. Timing/Duration: 7-24 hours Severity: severe Activities at Onset: rest Possible Cause: chronic episodes Improving Factors: medication Worsening Factors: movement Associated Symptoms: cough Respiratory Risk Factors: no cause identified Allergies/Adverse Reactions: Allergies NO KNOWN ALLERGY Allergy (Verified 07/21/17 11:25) Home Medications: Ambulatory Orders Albuterol Sulfate Nebs [Proventil Nebs] 2.5 mg INH QID 03/13/15 Diltiazem HCl [Cardizem] 60 mg PO TID 03/13/15 Formoterol Fumarate [Foradil Aerolizer] 12 mcg IN BID 03/13/15 Furosemide [Lasix] 40 mg PO BID 03/13/15 Metformin HCl [Glucophage] 500 mg PO BID 03/13/15 Roflumilast [Daliresp] 500 mcg PO DAILY 03/13/15 Simvastatin [Zocor] 10 mg PO BEDTIME 03/13/15 Tamsulosin HCl [Flomax] 0.4 mg PO BEDTIME 03/13/15 raNITIdine HCL [Zantac] 150 mg PO DAILY 03/13/15 Tramadol HCl 50 mg PO Q8HR PRN #20 tab 04/26/18 Albuterol Sulfate [Proair Hfa] 2 puff INH BID PRN 05/22/18 Calcium Carbonate (Antacid) [Tums] 500 mg PO DAILY PRN 05/22/18 Cholecalciferol [Vitamin D3] 400 unit PO BID 05/22/18 Cyanocobalamin [Vitamin B-12] 1,000 mcg PO DAILY 05/22/18 Ferrous Sulfate 325 mg PO DAILY 05/22/18 Guaifenesin [Mucinex] 600 mg PO Q12HRS PRN 05/22/18 Lorazepam [Ativan] 1 mg PO BEDTIME 05/22/18 Metoprolol Tartrate [Lopressor] 25 mg PO BID 05/22/18 Prednisone 5 mg PO DAILY 05/22/18 Tiotropium Phillips-Olodaterol [Stiolto Respimat 2.5-2.5 Mcg/Act] 2 puff INH DAILY 05/22/18 Review of Systems - Review of Systems Constitutional: States: chills, malaise. Denies: fever EENTM: States: nose congestion. Denies: eye pain, ear pain, nose pain, throat pain Respiratory: States: cough, short of breath, wheezing Cardiology: Denies: no symptoms reported, edema, syncope Gastrointestinal/Abdominal: States: no symptoms reported. Denies: abdominal pain, diarrhea, nausea, vomiting Genitourinary: States: no symptoms reported Musculoskeletal: States: no symptoms reported Past Medical History (General) - Patient Medical History Hx Seizures: No Hx Stroke: No Hx Asthma: No Hx of COPD: Yes Hx Cardiac Disorders: No Hx Congestive Heart Failure: No Hx Pacemaker: No Hx Hypertension: Yes Hx Diabetes: Yes Hx Gastroesophageal Reflux: Yes Hx Cancer: No Hx MRSA: No Surgical History: appendectomy - Vaccination History Hx Tetanus, Diphtheria Vaccination: Yes Hx Influenza Vaccination: Yes Hx Pneumococcal Vaccination: Yes - Social History Hx Tobacco Use: Yes - Quit 2009 Hx Alcohol Use: No Hx Substance Use: No Hx Physical Abuse: No Hx Emotional Abuse: No Family Medical History - Family History Father Family History: No Known Hx Family Stroke: Yes - dad-ruptured brain anaeurysm Physical Exam - Physical Exam General Appearance: Alert, No apparent distress Eyes, Ears, Nose, Throat Exam: PERRL/EOMI, normal ENT inspection, TMs normal, pharynx normal Neck: non-tender, full range of motion, supple, normal inspection Respiratory: wheezing - tight BS in all lung staples with no crackles Cardiovascular/Chest: normal peripheral pulses, regular rate, rhythm, no edema, no gallop, no JVD, no murmur Peripheral Pulses: radial,right: 2+, radial,left: 2+ Gastrointestinal/Abdominal: normal bowel sounds, non tender, soft Neurologic: alert, oriented x 3 Progress - Progress Progress: 05/22/18 10:21 patient was in significant distress on arrival here and by EMS despite home O2 and breathing treatments. Doing better now but warrants close monitoring as he needs intensive therapy and has risk for rapid decompensation at home. Currently doing much better but will admit. - Results/Orders Results/Orders: 05/22/18 09:15 INFLUENZA A & B BY PCR Stat 05/22/18 09:22 SVN [SVN/Updraft Therapy] PRN 05/22/18 09:55 Azithromycin IV [Zithromax IV] 500 mg Sodium Chloride 0.9% 250Ml [NS 250ml] 250 ml IVPB ONCE cefTRIAXone SODIUM [Rocephin] 1 gm Sodium Chl 0.9% 50Ml Min-Bag+ [NS 50ml MINI-BAG+] 50 ml IVPB ONCE 05/22/18 10:17 Albuterol Sulfate Nebs [Proventil Nebs] 2.5 mg NEB ONCE ONE Laboratory Results WBC 11.1 K/mm3 (4.8-10.8) H 05/22/18 09:15 RBC 3.97 M/mm3 (4.70-6.10) L 05/22/18 09:15 Hgb 10.5 gm/dL (14.0-18.0) L 05/22/18 09:15 Hct 34.3 % (42.0-52.0) L 05/22/18 09:15 MCV 86.3 fl (80.0-94.0) 05/22/18 09:15 MCH 26.4 pg (27.0-31.0) L 05/22/18 09:15 MCHC 30.6 g/dL (33.0-37.0) L 05/22/18 09:15 RDW 16.5 % (11.5-14.5) H 05/22/18 09:15 Plt Count 228 K/mm3 (130-400) 05/22/18 09:15 MPV 8.8 fl (7.40-10.4) 05/22/18 09:15 Absolute Neuts (auto) 8.30 K/uL (1.8-6.8) H 05/22/18 09:15 Absolute Lymphs (auto) 1.50 K/uL (1.0-3.4) 05/22/18 09:15 Absolute Monos (auto) 1.00 K/uL (0.2-0.8) H 05/22/18 09:15 Absolute Eos (auto) 0.20 K/uL (0.0-0.4) 05/22/18 09:15 Absolute Basos (auto) 0.00 K/uL (0.0-0.1) 05/22/18 09:15 Neutrophils % 74.5 % (42.0-78.0) 05/22/18 09:15 Lymphocytes % 13.8 % (20.0-50.0) L 05/22/18 09:15 Monocytes % 9.4 % (2.0-9.0) H 05/22/18 09:15 Eosinophils % 2.2 % (1.0-5.0) 05/22/18 09:15 Basophils % 0.1 % (0.0-2.0) 05/22/18 09:15 Sodium 139 mmol/L (135-145) 05/22/18 09:15 Potassium 3.1 mmol/L (3.6-5.0) L 05/22/18 09:15 Chloride 89 mmol/L (101-111) L 05/22/18 09:15 Carbon Dioxide 40 mmol/L (21-31) H 05/22/18 09:15 Anion Gap 13.1 (12-18) 05/22/18 09:15 BUN 15 mg/dL (7-18) 05/22/18 09:15 Creatinine 0.87 mg/dL (0.6-1.3) 05/22/18 09:15 BUN/Creatinine Ratio 17.2 (10-20) 05/22/18 09:15 Random Glucose 115 mg/dL (70-105) H 05/22/18 09:15 Serum Osmolality 279.3 mOsm/L (275-295) 05/22/18 09:15 Calcium 9.2 mg/dL (8.4-10.2) 05/22/18 09:15 Total Bilirubin 0.4 mg/dL (0.2-1.0) 05/22/18 09:15 AST 22 IU/L (10-42) 05/22/18 09:15 ALT 22 IU/L (10-60) 05/22/18 09:15 Alkaline Phosphatase 98 IU/L (42-121) 05/22/18 09:15 B-Natriuretic Peptide 13.9 pg/ml (0-100) 05/22/18 09:15 Serum Total Protein 7.5 gm/dL (6.4-8.2) 05/22/18 09:15 Albumin 3.5 g/dl (3.2-5.5) 05/22/18 09:15 Globulin 4.0 gm/dL (2.3-3.5) H 05/22/18 09:15 Albumin/Globulin Ratio 0.9 (1.1-1.9) L 05/22/18 09:15 Influ negative Departure - Departure Clinical Impression: COPD (chronic obstructive pulmonary disease) Qualifiers: COPD type: COPD with acute exacerbation Qualified Code(s): J44.1 - Chronic obstructive pulmonary disease with (acute) exacerbation Disposition: Admit Patient Condition: Fair Departure Forms: ED Discharge - Pt. Copy, Patient Portal Self Enrollment Referrals: SHEMAR FAJARDO [Primary Care Provider] - 1-2 Weeks Home Medications: Ambulatory Orders Albuterol Sulfate Nebs [Proventil Nebs] 2.5 mg INH QID 03/13/15 Diltiazem HCl [Cardizem] 60 mg PO TID 03/13/15 Formoterol Fumarate [Foradil Aerolizer] 12 mcg IN BID 03/13/15 Furosemide [Lasix] 40 mg PO BID 03/13/15 Metformin HCl [Glucophage] 500 mg PO BID 03/13/15 Roflumilast [Daliresp] 500 mcg PO DAILY 03/13/15 Simvastatin [Zocor] 10 mg PO BEDTIME 03/13/15 Tamsulosin HCl [Flomax] 0.4 mg PO BEDTIME 03/13/15 raNITIdine HCL [Zantac] 150 mg PO DAILY 03/13/15 Tramadol HCl 50 mg PO Q8HR PRN #20 tab 04/26/18 Albuterol Sulfate [Proair Hfa] 2 puff INH BID PRN 05/22/18 Calcium Carbonate (Antacid) [Tums] 500 mg PO DAILY PRN 05/22/18 Cholecalciferol [Vitamin D3] 400 unit PO BID 05/22/18 Cyanocobalamin [Vitamin B-12] 1,000 mcg PO DAILY 05/22/18 Ferrous Sulfate 325 mg PO DAILY 05/22/18 Guaifenesin [Mucinex] 600 mg PO Q12HRS PRN 05/22/18 Lorazepam [Ativan] 1 mg PO BEDTIME 05/22/18 Metoprolol Tartrate [Lopressor] 25 mg PO BID 05/22/18 Prednisone 5 mg PO DAILY 05/22/18 Tiotropium [place]-Olodaterol [Stiolto Respimat 2.5-2.5 Mcg/Act] 2 puff INH DAILY 05/22/18 Decision To Admit - Decistion To Admit Decision to Admit Reason: Admit from ER Decision to Admit Date: 05/22/18 Decision to Admit Time: 10:22
[2018-05-22] MEDS ORDERED: AZITHROMYCIN IV 500 MG in SODIUM CHLORIDE 0.9% 250ML 250 ML IVPB ONE (09:55)
[2018-05-22] MEDS ORDERED: cefTRIAXone SODIUM 1 GM in SODIUM CHL 0.9% 50ML MIN-BAG+ 50 ML IVPB ONE (09:55)
[2018-05-22] MEDS ORDERED: cefTRIAXone SODIUM 1 GM VIAL ONE (10:08)
[2018-05-22] MEDS ORDERED: SODIUM CHLORIDE 0.9% 250ML 250 ML ONE (10:09)
[2018-05-22] MEDS ORDERED: AZITHROMYCIN IV 500 MG VIAL IVPB ONE (10:09)
[2018-05-22] MEDS ORDERED: SODIUM CHL 0.9% 50ML MIN-BAG+ 50 ML IVPB ONE (10:09)
[2018-05-22] MEDS ORDERED: ALBUTEROL SULFATE 2.5 MG/3 ML VIAL NEB ONE (10:17)
--- NOTE | 2018-05-22 11:09 | HP ---
SUPERVISING PHYSICIAN: Drew Harris M.D. CHIEF COMPLAINT: Difficulty breathing. HISTORY OF PRESENT ILLNESS: Mr. Matos is a 73 year-old male patient with a known history of chronic obstructive pulmonary disease and a recent diagnosis of right perihilar lung mass most likely malignant with the patient opting to have no followup testing or treatment. He notes that today he has been having increasing shortness of breath over the last several days and he has been feeling ill. He tried 2 breathing treatments on his own but failed to get any significant response and EMS was notified. He was given an additional treatment en route but on presentation to the Emergency Room he continued to be very short of breath. He normally requires up to 5 liters by nasal cannula and wears BiPAP at night, but was running in the 80s on arrival by EMS. After several breathing treatments in the E. R. he was noted to return close to baseline levels. He noted he had been coughing up some yellow purulent sputum and had some chills, but no definite fever and he was actually afebrile on arrival. Laboratory studies showed he had a leukocytosis at 11,100 with a left shift. His chest x-ray showed again right perihilar consolidation with increased pulmonary edema compared to previous exam with chest x-ray on 02/20/17. Vital signs show that he was tachycardic at 121, satting 92 to 94% on 5 liters nasal cannula at rest. Chemistries noted that he was showing some hypercapnia with a CO2 of 40 with some mild hypokalemia with potassium 3.1. Magnesium was low at 1.6. Liver enzymes were all showing to be within normal limits. His Influenza by PCR was negative for both A and B. He was then given Rocephin, azithromycin, Solu-Medrol, and additional breathing treatments for an exacerbation of COPD. He is now going to be admitted to the hospital for continuation of evaluation of exacerbation requiring more aggressive management. He was admitted in stable condition. PAST MEDICAL HISTORY: 1. Right pulmonary nodule noted on chest CT in January 2018 with a noted 4 cm solid mass lobulated and spiculated suspicious for primary lung carcinoma with the patient opting to pursue no additional diagnostic testing or treatment. 2. Chronic obstructive pulmonary disease with severe emphysema. 3. Benign prostatic hypertrophy. 4. Hyperlipidemia. 5. Type 2 diabetes, non-insulin dependent. 6. Hypertension. 7. Coronary artery disease. PAST SURGICAL HISTORY: 1. Appendectomy. CURRENT MEDICATIONS: 1. Zantac 150 mg daily. 2. Tramadol 50 mg every 8 hours as needed. 3. Stiolto Respimat 2.5/2.5 mcg per actuator, 2 puffs daily. 4. Flomax 0.4 mg at bedtime. 5. Zocor 10 mg at bedtime. 6. Daliresp 500 mcg daily. 7. Prednisone 5 mg daily. 8. Lopressor 25 mg b.i.d. 9. Metformin 500 mg b.i.d. 10. Ativan 1 mg at bedtime. 11. Mucinex 600 mg every 12 hours as needed. 12. Lasix 40 mg b.i.d. 13. Formoterol fumarate 12 mcg b.i.d. 14. Ferrous sulfate 325 mg daily. 15. Diltiazem 60 mg t.i.d. 16. Vitamin B12 1,000 mcg daily. 17. Vitamin D3 400 units twice daily. 18. Tums 500 mg daily as needed. 19. Albuterol nebulizers 2.5 mg inhaled q.i.d. 20. Albuterol sulfate handheld inhaler 2 puffs inhaled b.i.d. as needed. ALLERGIES: NO KNOWN DRUG ALLERGIES. FAMILY HISTORY: Mother at age 90 from advanced age, also had history of stomach problems. Father at age 69 from an abdominal aortic aneurysm. He has 1 brother who of chronic obstructive pulmonary disease and pneumonia at age 68. He has a sister currently living with cerebrovascular disease. He has another sister that of an overdose in her 50s. He has 1 son who had meningitis at a young age and he has some continued difficulties mentally. SOCIAL HISTORY: The patient lives just outside of [place], [place]. He has been for over 47 years. He has 6 grown children. He does have a history of tobacco usage with smoking cigarettes since age 16 to age 64, approximately 2 packs a day at which time he quit in 7 years past. He is a retired oil field driller. He denies alcohol or illicit drug use. REVIEW OF SYSTEMS: CONSTITUTIONAL: Positive for chills and malaise. Denies any fever, weight gain or weight loss. HEENT: Positive for nasal congestion. Denies any visual disturbance, headaches, sore throat, neck pain or stiffness, ear aches. CARDIOVASCULAR: Negative for chest pains, palpitations or syncopal episodes or edema. GASTROINTESTINAL: Negative for abdominal pains, diarrhea, nausea, vomiting or constipation or hematochezia. GENITOURINARY: Denies dysuria, hematuria or polyuria. MUSCULOSKELETAL: No joint aches or muscle pains. SKIN: No lesions or rashes. ENDOCRINE: Denies any history of adrenal or thyroid disease, but does have type 2 diabetes on oral therapy. NEUROLOGIC: Negative for paresthesias, extremity weakness, syncopal episodes, headaches, ataxia or seizures. PSYCHIATRIC: No history of depression or psychosis. SKIN: Negative for lesions or rashes. HEMATOLOGIC: Denies any unexplained bruising, bleeding. PHYSICAL EXAMINATION: VITAL SIGNS: Temperature on admission was 98.8, pulse 121, blood pressure 141/64, respirations 20, satting 94% on nasal cannula at 5 liters at rest. Admission weight 98.1 kg. Oxygen levels prior to arrival were showing to be in the low 80s prior to breathing treatments, improving with breathing treatments into the mid 90s. The patient is O2 dependent. GENERAL: The patient appears well nourished and well hydrated, and is in no current apparent distress. He is alert. HEENT: Tympanic membranes were clear bilaterally. Oropharynx is pink and moist without any lesions. NECK: Supple, non-tender. Full range of motion. No jugular venous distention. CHEST: Breath sounds were decreased throughout all lung staples. No crackles or rales. There was some notable inspiratory wheezing with increased expiratory phase. CARDIOVASCULAR: Regular rate and rhythm without appreciable murmurs, gallops, or rubs. ABDOMEN: Obese but soft, non-tender. Positive bowel sounds. EXTREMITIES: No clubbing, cyanosis or edema. NEUROLOGIC: He is alert and oriented times three without any focal deficits. Cranial nerves II-XII are grossly intact. LABORATORY: White count showed to be 11,100, hemoglobin 10.5, hematocrit 34.3 with RBC indices indicating a normocytic hypochromic presentation. Differential showed a left shift, no bands. Chemistries showed a mild low potassium at 3.1. Carbon dioxide was elevated at 40, BUN 15, creatinine 0.7, blood sugar 115. Magnesium 1.6, calcium 9.2. Liver functions were showing to be within normal limits. BNP was 13. Urinalysis just showed 100 glucose, otherwise within normal limits. MICROBIOLOGY: Influenza by PCR for A and B was negative. RADIOLOGY: Chest x-ray single view chest showed right perihilar consolidation with increased pulmonary edema bilaterally. ASSESSMENT: 1. Acute exacerbation of chronic obstructive pulmonary disease with a history of probable primary lung carcinoma involving the right lower lobe with the patient opting to have no aggressive further diagnostic studies or treatment. 2. Hypercapnic hypoxic respiratory distress secondary to #1. 3. Hypertension. 4. Type 2 diabetes mellitus, non-insulin dependent. 5. Electrolyte imbalance to include hypokalemia and hypomagnesemia. 6. History of benign prostatic hypertrophy currently on Flomax. 7. Anemia with a normocytic hypochromic presentation, likely iron deficiency anemia of chronic illness with the patient currently on iron therapy. PLAN: The patient is going to be admitted to the Medical/Surgical floor for ongoing treatment of his exacerbation of COPD. Will start him on Rocephin and azithromycin with concerns for community acquired pneumonia in a patient with advanced COPD and questionable lung carcinoma. Due to the fact that he has very diminished and wheezing, will go ahead and start him on some Solu-Medrol. Will have him on insulin sliding scale and closely monitor his blood sugars as per protocol. Will have him on DVT prophylaxis as per protocol with Lovenox. Will go ahead and give him some magnesium replacement 2 grams. Recheck his labs in the morning. Resume his home medications once those have been updated and verified. Will have him on aggressive pulmonary hygiene with q.i.d. DuoNeb treatments and p.r.n. Albuterol along with Mucinex. Will go ahead and repeat a chest x-ray in the morning. He will be on cardiac telemetry. Will anticipate his length of stay to be at least 2 to 3 days. Until he can transition to outpatient management will continue to monitor and treat as needed. Anticipate that he will be a slow taper off steroids given his underlying lung disease process, advanced COPD and questionable primary lung carcinoma. Once transitioned to outpatient management he will need continued followup with his primary care provider who is Dr. Ayala. #[id number] [facility]
[2018-05-22] MEDS ORDERED: ACETAMINOPHEN 325 MG TAB PO PRN (12:35)
[2018-05-22] MEDS ORDERED: GLUCAGON INJ 1 MG VIAL SUBCU PRN (12:35)
[2018-05-22] MEDS ORDERED: DEXTROSE 50% 25 GM/50 ML SYG IV PRN (12:35)
[2018-05-22] MEDS ORDERED: SODIUM CHLORIDE 0.9% (FLUSH) 10 ML SYG IV PRN (12:35)
[2018-05-22] MEDS ORDERED: ONDANSETRON INJ 4 MG/2 ML VIAL IV PRN (12:35)
[2018-05-22] MEDS ORDERED: IBUPROFEN 400 MG TAB PO PRN (12:35)
[2018-05-22] MEDS ORDERED: traMADol HCL 50 MG TAB PO PRN (12:50)
[2018-05-22] MEDS ORDERED: IV SET AND CAP CHANGE INJ INJ SCH (13:00)
[2018-05-22] MEDS: diltiaZEM HCL TAB 30 MG TAB PO SCH ×2 (14:20→20:31)
[2018-05-22] MEDS: INSULIN LISPRO 100 UNITS/ML PEN SUBCU SCH ×2 (17:00→21:25)
[2018-05-22] MEDS ORDERED: MAGNESIUM SULFATE PREMIX 2GM 2 GM in PREMIX BAG 1 BAG IVPB ONE (17:32)
[2018-05-22] MEDS: FUROSEMIDE 40 MG TAB PO SCH (17:38)
[2018-05-22] MEDS: METOPROLOL TARTRATE 50 MG TAB PO SCH (17:39)
[2018-05-22] MEDS: metFORMIN HCL 500 MG TAB PO SCH (17:40)
[2018-05-22] MEDS: methylPREDNISolone SODIUM SUC 125 MG/2 ML VIAL IV SCH ×2 (18:02→23:18)
[2018-05-22] MEDS: IPRATROPIUM/ALBUTEROL 3 ML VIAL NEB SCH ×2 (18:45→20:31)
[2018-05-22] MEDS ORDERED: MAGNESIUM SULFATE PREMIX 2GM 50 ML IVPB ONE (18:58)
[2018-05-22] MEDS ORDERED: PANTOPRAZOLE SODIUM IV 40 MG VIAL ONE (19:30)
[2018-05-22] MEDS: KCL 20 MEQ/NS 1,000 ML IVS PRN (20:02)
[2018-05-22] MEDS: guaiFENesin ER TAB 600 MG TAB PO SCH (20:30)
[2018-05-22] MEDS: LORazepam 1 MG TAB PO SCH (20:31)
[2018-05-22] MEDS: SIMVASTATIN 10 MG TAB PO SCH (20:31)
[2018-05-22] MEDS: TAMSULOSIN 0.4 MG CAP PO SCH (20:31)
[2018-05-22] MEDS: BUDESONIDE NEBS 0.5 MG/2 ML VIAL NEB SCH (20:31)
[2018-05-22] MEDS ORDERED: TEMAZEPAM 15 MG CAP ONE (21:20)
[2018-05-22] MEDS: OSELTAMIVIR 75 MG CAP PO SCH (22:02)
[2018-05-23] MEDS: methylPREDNISolone SODIUM SUC 125 MG/2 ML VIAL IV SCH ×5 (05:30→23:51)
[2018-05-23] MEDS: PANTOPRAZOLE SODIUM IV 40 MG VIAL IV SCH ×2 (05:31→06:05)
[2018-05-23] MEDS: INSULIN LISPRO 100 UNITS/ML PEN SUBCU SCH ×4 (08:03→22:41)
[2018-05-23] MEDS ORDERED: SODIUM CHL 0.9% 50ML MIN-BAG+ 50 ML IVPB ONE (08:09)
[2018-05-23] MEDS ORDERED: cefTRIAXone SODIUM 1 GM VIAL ONE (08:10)
--- NOTE | 2018-05-23 08:11 | RAD ---
EXAM DESCRIPTION: Chest,2 Views CLINICAL HISTORY: 73 years Male Pneumonia COMPARISON: Portable chest 05/22/2018 TECHNIQUE: PA and lateral views of the chest are obtained. FINDINGS: Heart: The heart is normal in size and configuration. Vasculature: The aorta is unremarkable. The pulmonary vascularity is normal. Mediastinum: Unremarkable otherwise. No evidence of mass or adenopathy. Lungs: Improved lung volumes in the interim resultant overall improved aeration of the lung bases with the exception of some residual discoid atelectasis and/or scarring. However, there is a pleural-based "mass" in the right lower lobe medially measuring 6.3 cm x 4.5 cm x 4.6 cm. There is diffuse centrilobular emphysema with interstitial prominence probably reflecting some fibrosis or edema. There is discoid atelectasis or scarring in the lung bases. Pleural spaces: Trace pleural fluid bilaterally not excludable. There are no pneumothoraces. Osseous structures: The bones appear demineralized. There is no evidence of acute fracture, osseous destruction or osteoblastic changes. Tubes and catheters: None. Upper abdomen: No acute findings. IMPRESSION: Pleural-based "mass" in the right lower lobe medially. Although a round pneumonia is a potential consideration, CT chest is recommended, particularly due to the increased risk of malignancy in a patient with emphysema and history of smoking. Remainder of findings as described above. Electronically signed by: Jesi Londono MD 05/23/2018 8:08 AM [employer]
[2018-05-23] MEDS: cefTRIAXone SODIUM 1 GM in SODIUM CHL 0.9% 50ML MIN-BAG+ 50 ML IVPB SCH (08:35)
[2018-05-23] MEDS: KCL 20 MEQ/NS 1,000 ML IVS PRN ×2 (08:35→23:11)
[2018-05-23] MEDS: guaiFENesin ER TAB 600 MG TAB PO SCH ×2 (08:35→21:35)
[2018-05-23] MEDS: metFORMIN HCL 500 MG TAB PO SCH ×2 (08:36→18:23)
[2018-05-23] MEDS: diltiaZEM HCL TAB 30 MG TAB PO SCH ×3 (08:36→21:36)
[2018-05-23] MEDS: METOPROLOL TARTRATE 50 MG TAB PO SCH ×2 (08:36→18:22)
[2018-05-23] MEDS: FERROUS SULFATE 325 MG TAB PO SCH (08:37)
[2018-05-23] MEDS: FUROSEMIDE 40 MG TAB PO SCH ×2 (08:37→18:22)
[2018-05-23] MEDS: OSELTAMIVIR 75 MG CAP PO SCH ×2 (08:37→21:36)
[2018-05-23] MEDS: ENOXAPARIN SODIUM 40 MG/0.4 ML SYG SUBCU SCH (08:38)
[2018-05-23] MEDS: BUDESONIDE NEBS 0.5 MG/2 ML VIAL NEB SCH ×2 (09:24→20:40)
[2018-05-23] MEDS: IPRATROPIUM/ALBUTEROL 3 ML VIAL NEB SCH ×4 (09:24→20:40)
[2018-05-23] MEDS ORDERED: AZITHROMYCIN IV 500 MG VIAL IVPB ONE (10:57)
[2018-05-23] MEDS ORDERED: SODIUM CHLORIDE 0.9% 250ML 250 ML ONE (10:57)
[2018-05-23] MEDS: AZITHROMYCIN IV 500 MG in SODIUM CHLORIDE 0.9% 250ML 250 ML IVPB SCH (11:03)
[2018-05-23] MEDS: NON-FORMULARY MEDICATION 1 EA MIS (Roflumilast [Daliresp] 500 MCG) PO SCH (11:07)
--- NOTE | 2018-05-23 20:48 | PN ---
DATE: 04/22/18 SUPERVISING PHYSICIAN: Drew Harris M.D. SUBJECTIVE: The patient feels like he is breathing much easier today. He has had no chest pains, palpitations, nausea or vomiting. He has remained afebrile. OBJECTIVE: VITAL SIGNS: Temperature 98.4, pulse 95, blood pressure 135/73, respirations 18, satting 93% on nasal cannula at rest. I's and O's show a positive balance of 400 with 1,000 in, 600 out. Weight is 98.4 kg. CHEST: Lung sounds are still diminished throughout but much more prominent today than at admission. There is no wheezing noted, or rales or rhonchi. HEART: Regular rate and rhythm. ABDOMEN: Soft, obese, but non-tender. Positive bowel sounds. EXTREMITIES: Without any clubbing, cyanosis or edema. NEUROLOGIC: He is alert and oriented times three. LABORATORY: White count has gone up to 15,500, hemoglobin 10.0, hematocrit 32.2, platelet count 240,000. Differential does show a left shift. Chemistries show elevated carbon dioxide of 35, normal potassium and sodium, BUN 23, creatinine 0.82. Blood sugar is between 134 and 196. Magnesium 2.0. MICROBIOLOGY: Sputum culture is pending. RADIOLOGY: Repeat chest x-ray two view chest per radiology interpretation shows pleural based mass in the right lower lobe medially. Although round pneumonia is a potential consideration, CT of the chest was recommended. ASSESSMENT: 1. Acute exacerbation of chronic obstructive pulmonary disease with a history of probable primary lung carcinoma of the right lower lobe with the patient opting not to have any aggressive further diagnostic studies or treatment. 2. Hypertension. 3. Type 2 diabetes mellitus, non-insulin dependent. 4. Electrolyte imbalance that included hypokalemia and hypomagnesemia now back to baseline with fluid replacement. 5. History of benign prostatic hypertrophy currently on Flomax with no complications. 6. Normocytic hypochromic anemia, likely iron deficiency anemia of chronic illness with the patient currently on iron therapy. 7. Chronic nicotine abuse. PLAN: Will continue with current plan of care at this point with Rocephin and azithromycin and antiviral with Tamiflu. He continues on aggressive pulmonary hygiene. Will continue slowly tapering his steroids as this is dramatically improving his lung function. Will plan to repeat labs and follow those closely. Hopefully be able to discharge him later tomorrow or Thursday, depending on when we can get him onto oral prednisone. Until then will continue to monitor and treat as noted. [facility][id number] [facility]
[2018-05-23] MEDS: TEMAZEPAM 15 MG CAP PO SCH (21:35)
[2018-05-23] MEDS: LORazepam 1 MG TAB PO SCH (21:35)
[2018-05-23] MEDS: TAMSULOSIN 0.4 MG CAP PO SCH (21:35)
[2018-05-23] MEDS: SIMVASTATIN 10 MG TAB PO SCH (21:36)
[2018-05-24] MEDS: ALBUTEROL SULFATE 2.5 MG/3 ML VIAL NEB PRN (05:06)
[2018-05-24] MEDS: PANTOPRAZOLE SODIUM IV 40 MG VIAL IV SCH (06:33)
[2018-05-24] MEDS: INSULIN LISPRO 100 UNITS/ML PEN SUBCU SCH ×4 (07:55→21:20)
[2018-05-24] MEDS: metFORMIN HCL 500 MG TAB PO SCH ×2 (07:58→17:12)
[2018-05-24] MEDS: METOPROLOL TARTRATE 50 MG TAB PO SCH ×2 (07:58→17:12)
[2018-05-24] MEDS: IPRATROPIUM/ALBUTEROL 3 ML VIAL NEB SCH ×4 (08:30→20:56)
[2018-05-24] MEDS: BUDESONIDE NEBS 0.5 MG/2 ML VIAL NEB SCH ×3 (08:30→20:56)
[2018-05-24] MEDS ORDERED: SODIUM CHL 0.9% 50ML MIN-BAG+ 50 ML IVPB ONE (08:31)
[2018-05-24] MEDS ORDERED: SODIUM CHLORIDE 0.9% 250ML 250 ML ONE (08:31)
[2018-05-24] MEDS ORDERED: cefTRIAXone SODIUM 1 GM VIAL ONE (08:31)
[2018-05-24] MEDS ORDERED: AZITHROMYCIN IV 500 MG VIAL IVPB ONE (08:32)
[2018-05-24] MEDS: diltiaZEM HCL TAB 30 MG TAB PO SCH ×3 (08:50→20:40)
[2018-05-24] MEDS: ENOXAPARIN SODIUM 40 MG/0.4 ML SYG SUBCU SCH (08:51)
[2018-05-24] MEDS: FUROSEMIDE 40 MG TAB PO SCH ×2 (08:51→17:12)
[2018-05-24] MEDS: FERROUS SULFATE 325 MG TAB PO SCH (08:51)
[2018-05-24] MEDS: cefTRIAXone SODIUM 1 GM in SODIUM CHL 0.9% 50ML MIN-BAG+ 50 ML IVPB SCH (08:52)
[2018-05-24] MEDS: guaiFENesin ER TAB 600 MG TAB PO SCH ×2 (08:52→20:40)
[2018-05-24] MEDS: OSELTAMIVIR 75 MG CAP PO SCH ×2 (08:59→20:40)
[2018-05-24] MEDS: NON-FORMULARY MEDICATION 1 EA MIS (Roflumilast [Daliresp] 500 MCG) PO SCH (10:29)
[2018-05-24] MEDS: AZITHROMYCIN IV 500 MG in SODIUM CHLORIDE 0.9% 250ML 250 ML IVPB SCH (10:29)
[2018-05-24] MEDS ORDERED: MAGNESIUM HYDROXIDE 30 ML UD PO ONE (12:21)
[2018-05-24] MEDS ORDERED: SODIUM CHLORIDE 0.9% (FLUSH) 10 ML SYG IV ONE (12:21)
[2018-05-24] MEDS ORDERED: MAGNESIUM HYDROXIDE 30 ML UD PO PRN (12:21)
[2018-05-24] MEDS: predniSONE 20 MG TAB PO SCH (12:30)
[2018-05-24] MEDS: BISACODYL TAB 5 MG TAB PO SCH (12:56)
--- NOTE | 2018-05-24 19:24 | PN ---
DATE: 05/24/18 SUPERVISING PHYSICIAN: Carmine Figueroa M.D. SUBJECTIVE: The patient notes that his breathing has improved and he has not had any additional complaints. He has remained afebrile. Discussed plan to go home tomorrow morning after we transition his to oral prednisone today as long as he does not have a setback in regards to his respiratory effort. OBJECTIVE: VITAL SIGNS: Temperature 98.2, pulse 94, blood pressure 126/78, respirations 20, satting 96% on 5 liters nasal cannula at rest. I's and O's show a positive balance of 1600 with 3400 in, 1800 out. CHEST: Lung sounds are improving in regards to aeration. There is no notable wheezing today, but breath sounds continue to be significantly decreased in all staples. HEART: Regular rate and rhythm. ABDOMEN: Obese but soft, non-tender. Positive bowel sounds. EXTREMITIES: Without any clubbing, cyanosis or edema. NEUROLOGIC: He is alert and oriented times three. LABORATORY: White count is 17,600, hemoglobin 9.4, hematocrit 31, platelet count 232,000. Differential shows a left shift. Chemistries show a carbon dioxide of 32 which is continuing to show improvement from admission of 40. Sodium and potassium are normal. Blood sugars have ranged between 134 and 160. Calcium 8.1. MICROBIOLOGY: Sputum culture is pending. RADIOLOGY: No additional radiographic studies today. ASSESSMENT: 1. Acute exacerbation of chronic obstructive pulmonary disease with a history of probable primary lung carcinoma of the right lower lobe with the patient opting not to have any aggressive further diagnostic studies or treatment with a persistent hypercapnic state. 2. Hypertension, stable. 3. Type 2 diabetes mellitus, non-insulin dependent, stable. 4. Electrolyte imbalance that included hypokalemia and hypomagnesemia now back to baseline with fluid replacement. 5. History of benign prostatic hypertrophy on Flomax with no complications. 6. Normocytic hypochromic anemia, likely iron deficiency anemia of chronic illness with the patient currently on iron therapy. 7. Chronic nicotine abuse. PLAN: Hopefully be able to discharge in the morning. I have transitioned him to oral prednisone today 40 mg. Will continue with Tamiflu, Rocephin and azithromycin, and of course aggressive pulmonary hygiene. If he does show improvement and stabilization overnight with oral prednisone, will plan to discharge tomorrow to have continued followup in the outpatient setting. Until he transitions to outpatient management will continue to monitor and treat as needed. [facility][id number] [facility]
[2018-05-24] MEDS: LORazepam 1 MG TAB PO SCH (20:39)
[2018-05-24] MEDS: TEMAZEPAM 15 MG CAP PO SCH (20:39)
[2018-05-24] MEDS: TAMSULOSIN 0.4 MG CAP PO SCH (20:40)
[2018-05-24] MEDS: SIMVASTATIN 10 MG TAB PO SCH (20:41)
[2018-05-25] MEDS: ALBUTEROL SULFATE 2.5 MG/3 ML VIAL NEB PRN ×2 (00:05→05:38)
[2018-05-25] MEDS: PANTOPRAZOLE SODIUM IV 40 MG VIAL IV SCH (06:06)
[2018-05-25] MEDS: IPRATROPIUM/ALBUTEROL 3 ML VIAL NEB SCH (07:20)
[2018-05-25] MEDS: BUDESONIDE NEBS 0.5 MG/2 ML VIAL NEB SCH (07:20)
[2018-05-25] MEDS: INSULIN LISPRO 100 UNITS/ML PEN SUBCU SCH ×2 (07:33→12:02)
[2018-05-25] MEDS: metFORMIN HCL 500 MG TAB PO SCH (08:00)
[2018-05-25] MEDS: METOPROLOL TARTRATE 50 MG TAB PO SCH (08:00)
[2018-05-25] MEDS ORDERED: cefTRIAXone SODIUM 1 GM VIAL ONE (10:00)
[2018-05-25] MEDS ORDERED: SODIUM CHL 0.9% 50ML MIN-BAG+ 50 ML IVPB ONE (10:00)
[2018-05-25] MEDS: predniSONE 20 MG TAB PO SCH (10:03)
[2018-05-25] MEDS: diltiaZEM HCL TAB 30 MG TAB PO SCH (10:03)
[2018-05-25] MEDS: FUROSEMIDE 40 MG TAB PO SCH (10:03)
[2018-05-25] MEDS: FERROUS SULFATE 325 MG TAB PO SCH (10:04)
[2018-05-25] MEDS: cefTRIAXone SODIUM 1 GM in SODIUM CHL 0.9% 50ML MIN-BAG+ 50 ML IVPB SCH (10:04)
[2018-05-25] MEDS: guaiFENesin ER TAB 600 MG TAB PO SCH (10:04)
[2018-05-25] MEDS: OSELTAMIVIR 75 MG CAP PO SCH (10:04)
[2018-05-25] MEDS: ENOXAPARIN SODIUM 40 MG/0.4 ML SYG SUBCU SCH (10:14)
[2018-05-25] MEDS: NON-FORMULARY MEDICATION 1 EA MIS (Roflumilast [Daliresp] 500 MCG) PO SCH (10:14)
[2018-05-25] MEDS: BISACODYL TAB 5 MG TAB PO SCH (10:41)
[2018-05-25] MEDS: AZITHROMYCIN IV 500 MG in SODIUM CHLORIDE 0.9% 250ML 250 ML IVPB SCH (11:53)
[2018-05-25 13:34] VITALS: BP 152/81; TEMP 98.3; O2SAT 92
--- NOTE | 2018-06-03 14:39 | DS ---
SUPERVISING PHYSICIAN: Carmine Figueroa MD ADMISSION DIAGNOSIS: 1. Acute exacerbation of chronic obstructive pulmonary disease with a history of probable primary lung carcinoma involving the right lower lobe with the patient opting to have no aggressive further diagnostic studies or treatment. 2. Hypercapnic hypoxic respiratory distress secondary to #1. 3. Hypertension. 4. Type 2 diabetes mellitus, non-insulin dependent. 5. Electrolyte imbalance to include hypokalemia and hypomagnesemia. 6. History of benign prostatic hypertrophy currently on Flomax. 7. Anemia with a normocytic hypochromic presentation, likely iron deficiency anemia of chronic illness with the patient currently on iron therapy. DISCHARGE DIAGNOSIS: 1. Acute exacerbation of chronic obstructive pulmonary disease with a history of probable primary lung carcinoma of the right lower lobe with the patient opting not to have any aggressive further diagnostic studies or treatment with a persistent hypercapnic state, but improving. 2. Hypertension, stable. 3. Type 2 diabetes mellitus, non-insulin dependent, stable. 4. Electrolyte imbalance that included hypokalemia and hypomagnesemia now back to baseline with fluid replacement. 5. History of benign prostatic hypertrophy on Flomax with no complications. 6. Normocytic hypochromic anemia, likely iron deficiency anemia of chronic illness with the patient currently on iron therapy. 7. Chronic nicotine abuse. REASON FOR HOSPITALIZATION: Mr. Matos is a 73 year-old male patient with a known history of chronic obstructive pulmonary disease and a recent diagnosis of right perihilar lung mass most likely malignant with the patient opting to have no followup testing or treatment. He notes that today he has been having increasing shortness of breath over the last several days and he has been feeling ill. He tried 2 breathing treatments on his own but failed to get any significant response and EMS was notified. He was given an additional treatment en route but on presentation to the Emergency Room he continued to be very short of breath. He normally requires up to 5 liters by nasal cannula and wears BiPAP at night, but was running in the 80s on arrival by EMS. After several breathing treatments in the E. R. he was noted to return close to baseline levels. He noted he had been coughing up some yellow purulent sputum and had some chills, but no definite fever and he was actually afebrile on arrival. Laboratory studies showed he had a leukocytosis at 11,100 with a left shift. His chest x-ray showed again right perihilar consolidation with increased pulmonary edema compared to previous exam with chest x-ray on 02/20/17. Vital signs show that he was tachycardic at 121, satting 92 to 94% on 5 liters nasal cannula at rest. Chemistries noted that he was showing some hypercapnia with a CO2 of 40 with some mild hypokalemia with potassium 3.1. Magnesium was low at 1.6. Liver enzymes were all showing to be within normal limits. His Influenza by PCR was negative for both A and B. He was then given Rocephin, azithromycin, Solu-Medrol, and additional breathing treatments for an exacerbation of COPD. He is now going to be admitted to the hospital for continuation of evaluation of exacerbation requiring more aggressive management. He was admitted in stable condition. LABORATORY: White count on admission was 7,100 and went up to a maximum of 17,600 and was going down to baseline at 14,100 at discharge. Hemoglobin and hematocrit were stable and at discharge were 9.7 and 31.9, respectively. Platelet count 280,000. Differential did show a persistent left shift. Chemistries on admission showed sodium 139, 141 at discharge. Potassium was low, but normalized and on discharge was 4.1. Carbon dioxide remained elevated. Initially on admission was 40, but discharge was 34. BUN 15 and showed some elevation and at discharge was 30. Creatinine 0.87 initially on admission, but at discharge was 0.84. Blood sugars were fairly erratic ranging between 88 and 306. Liver functions within normal limits. Magnesium low on admission at 1.6 and at discharge was 2.0. Urinalysis showed 100 glucose, otherwise within normal limits. MICROBIOLOGY: Sputum culture showed few normal respiratory catalino. She had influenza A and B by PCR that were negative. RADIOLOGY: Chest x-ray on admission, single-view, per radiologic interpretation showed right perihilar consolidation, increased pulmonary edema. He had followup x-rays and last x-ray on 05/23/18 per radiologic interpretation showed pleural based mass in the right lower lobe medially. Although a round pneumonia is potential consideration, CT of the chest was recommended, particularly due to the increased risk of malignancy in a patient with emphysema and history of smoking, which can be done as an outpatient and will need to be done after discharge once he has completed his pneumonia treatment. He has had an x-ray in the past which is known by Dr. Ayala with a CT being done after review of records and was done actually as a screening CT on 01/27/18. That report should be available for review. HOSPITAL COURSE: Mr. Matos was admitted as noted above for exacerbation of chronic obstructive pulmonary disease with a long-standing history of primary lung carcinoma of the right lower lobe which he has opted not to have any aggressive diagnostic studies or treatment done in the past. He is being followed by Dr. Ayala. He was started on antibiotics to include Rocephin and azithromycin as well as Tamiflu. He was treated with aggressive pulmonary hygiene and given some prednisone as well as Lasix as needed. He was showing good clinical improvement and on the morning of discharge was felt well enough to continue outpatient management. PLAN: Mr. Matos was discharged on 05/25/18 with instructions to followup with Hill Ayala in 7 days or sooner if needed. He was to call his office. He was to resume his medications as directed. He is to wear his oxygen as instructed, increase activity as tolerated. He was told to return to the hospital should he have any concerning symptoms. Diet at discharge was diabetic diet as tolerated. Activity as tolerated. Medications at discharge prescribed included: 1. Dulcolax tablet 10 mg daily [id number]. 2. Omnicef 300 mg twice daily, #20. 3. Guaifenesin 600 mg twice daily, [id number]. 4. Magnesium hydroxide for constipation, 30 mL daily as needed [id number]. 5. Tamiflu 75 mg twice daily, #10. 6. MiraLAX daily [id number] for constipation. 7. Prednisone tapering dose as directed. He was to resume his normal 5 mg prednisone dose after finishing the tapering dose as directed. All other medications were resumed as previous. He would benefit from referral to pulmonary rehab certainly, which is recommended and can be followed up as an outpatient. CONDITION AT DISCHARGE: Stable and improving. DISPOSITION: The patient was discharged home. [facility][id number] [facility]
== END 2018-05-25 12:58 | disposition home or self-care (01) | DRG 191 ==
LOC: ER 08:54 → MS 11:08
PROVIDERS: ADMIT Nurse Practitioner Family; ATTEND Nurse Practitioner Family
DX: J44.1 Chronic obstructive pulmonary disease with (acute) exacerbation (principal); C34.31 Malignant neoplasm of lower lobe, right bronchus or lung; R09.02 Hypoxemia; I10 Essential (primary) hypertension; E11.9 Type 2 diabetes mellitus without complications; E87.6 Hypokalemia; E83.42 Hypomagnesemia; N40.0 Benign prostatic hyperplasia without lower urinary tract symptoms; K21.9 Gastro-esophageal reflux disease without esophagitis; D50.9 Iron deficiency anemia, unspecified; D63.8 Anemia in other chronic diseases classified elsewhere; I25.10 Atherosclerotic heart disease of native coronary artery without angina pectoris; F17.210 Nicotine dependence, cigarettes, uncomplicated; E66.9 Obesity, unspecified; Z79.891 Long term (current) use of opiate analgesic; Z79.52 Long term (current) use of systemic steroids; Z79.84 Long term (current) use of oral hypoglycemic drugs; Z79.899 Other long term (current) drug therapy; Z99.81 Dependence on supplemental oxygen; Z68.32 Body mass index [BMI] 32.0-32.9, adult

== ENCOUNTER → 2018-09-21 | Outpatient (CLI) | payer MEDICARE | LOC: YCHH 10:28 | PROVIDERS: ATTEND Emergency Medicine | DX: E11.9 Type 2 diabetes mellitus without complications (principal); N40.0 Benign prostatic hyperplasia without lower urinary tract symptoms; N18.9 Chronic kidney disease, unspecified; E78.5 Hyperlipidemia, unspecified; D64.9 Anemia, unspecified ==

== ENCOUNTER 2018-12-30 09:16 | Inpatient (IN) | payer MEDICARE ==
--- NOTE | 2018-12-30 10:29 | RAD ---
EXAM DESCRIPTION: Chest,1 View CLINICAL HISTORY: 73 years Male, weakness generalized this am COMPARISON: May 23, 2018 TECHNIQUE: AP portable chest. FINDINGS: Upright portable view of the chest shows essentially clearing of the left lung with minimal haziness at the lateral lung base and in the lateral mid lung field suggesting minimal scarring or infiltrate. Right lung base has deteriorated with increasing pleural fluid and hazy atelectatic or infiltrative density in the lower lung field extending from the hilum inferiorly and laterally. Vascularity is in the upper range of normal. Overt failure is not apparent cardiac silhouette is obscured but I suspect heart size is in the upper range of normal. IMPRESSION: Deterioration the right lung base with increasing pleural and parenchymal density opacifying and obscuring the hemidiaphragm consistent with an acute inflammatory process and/or atelectasis. Improved left lung with minimal haziness in the lateral lung base and peripherally in the upper lung field suggesting minimal scarring or infiltrate. Electronically signed by: Carmine Mcguire MD 12/30/2018 10:27 AM CDT
--- NOTE | 2018-12-30 11:06 | ED.PDOC ---
History of Present Illness - General Chief Complaint: General Stated Complaint: weakness Time Seen by Provider: 12/30/18 09:26 Source: patient Exam Limitations: no limitations - History of Present Illness Initial Comments: pt presents with 24 hours of progressive shorntess of breath and weakness. no fever. minimal sputum. poor compliance with bipap. questionable undiagnosed lung cancer. ambulatory, alert and interactive. hx of co2 retention as well. Timing/Duration: 24 hours Severity: moderate Improving Factors: nothing Worsening Factors: nothing Associated Symptoms: loss of appetite, malaise, shortness of breath, weakness Allergies/Adverse Reactions: Allergies NO KNOWN ALLERGY Allergy (Verified 07/21/17 11:25) Home Medications: Ambulatory Orders Albuterol Sulfate Nebs [Proventil Nebs] 2.5 mg INH QID 03/13/15 Diltiazem HCl [Cardizem] 60 mg PO TID 03/13/15 Formoterol Fumarate [Foradil Aerolizer] 12 mcg IN BID 03/13/15 Furosemide [Lasix] 40 mg PO BID 03/13/15 Metformin HCl [Glucophage] 500 mg PO BID 03/13/15 Roflumilast [Daliresp] 500 mcg PO DAILY 03/13/15 Simvastatin [Zocor] 10 mg PO BEDTIME 03/13/15 Tamsulosin HCl [Flomax] 0.4 mg PO BEDTIME 03/13/15 raNITIdine HCL [Zantac] 150 mg PO DAILY 03/13/15 Tramadol HCl 50 mg PO Q8HR PRN #20 tab 04/26/18 Albuterol Sulfate [Proair Hfa] 2 puff INH BID PRN 05/22/18 Calcium Carbonate (Antacid) [Tums] 500 mg PO DAILY PRN 05/22/18 Cholecalciferol [Vitamin D3] 400 unit PO BID 05/22/18 Cyanocobalamin [Vitamin B-12] 1,000 mcg PO DAILY 05/22/18 Ferrous Sulfate 325 mg PO DAILY 05/22/18 Metoprolol Tartrate [Lopressor] 25 mg PO BID 05/22/18 Temazepam [Restoril] 30 mg PO BEDTIME 05/22/18 Tiotropium [place]-Olodaterol [Stiolto Respimat 2.5-2.5 Mcg/Act] 2 puff INH DAILY 05/22/18 Bisacodyl [Dulcolax Tab] 10 mg PO DAILY tab 05/25/18 Polyethylene Glycol 3350 [Miralax] 17 gm PO DAILY 20 Days #30 pckt 05/25/18 Prednisone 5 mg PO DAILY #0 05/25/18 Dextromethorphan-Guaifenesin [Mucinex Dm 30-600 mg] 1 tab PO BID 12/30/18 Review of Systems - Review of Systems Constitutional: States: malaise, weakness EENTM: States: no symptoms reported Respiratory: States: short of breath Cardiology: States: no symptoms reported Gastrointestinal/Abdominal: States: no symptoms reported Genitourinary: States: no symptoms reported Musculoskeletal: States: no symptoms reported Skin: States: no symptoms reported Neurological: States: weakness Endocrine: States: no symptoms reported Hematologic/Lymphatic: States: no symptoms reported Past Medical History (General) - Patient Medical History Hx Seizures: No Hx Stroke: No Hx Asthma: No Hx of COPD: Yes Hx Cardiac Disorders: No Hx Congestive Heart Failure: No Hx Pacemaker: No Hx Hypertension: Yes Hx Diabetes: No Hx Gastroesophageal Reflux: Yes Hx Cancer: No Hx MRSA: No - Vaccination History Hx Tetanus, Diphtheria Vaccination: Yes Hx Influenza Vaccination: Yes Hx Pneumococcal Vaccination: Yes - Social History Hx Tobacco Use: Yes Hx Alcohol Use: No Hx Substance Use: No Hx Physical Abuse: No Hx Emotional Abuse: No Family Medical History - Family History Father Family History: No Known Hx Family Stroke: Yes - dad-ruptured brain anaeurysm Physical Exam - Physical Exam General Appearance: Alert, Comfortable, No apparent distress Eye Exam: bilateral normal Ears, Nose, Throat: hearing grossly normal, normal ENT inspection Neck: full range of motion, supple Respiratory: decreased breath sounds, accessory muscle use, wheezing Cardiovascular/Chest: normal peripheral pulses, regular rate, rhythm Peripheral Pulses: radial,right: 2+, radial,left: 2+, dorsalis pedis,right: 2+, dorsalis pedis,left: 2+ Gastrointestinal/Abdominal: non tender, soft Rectal Exam: deferred Back Exam: normal inspection, no CVA tenderness Extremity: non-tender, normal inspection, normal capillary refill, pedal edema Neurologic: application systems architect II-XII nml as tested, alert, normal mood/affect, oriented x 3 Skin Exam: normal color Comments: Vital Signs - 24 hr 12/30/18 12/30/18 12/30/18 09:18 09:33 09:36 Temperature 98.7 F Pulse Rate [ 88 86 left brachial] Respiratory 16 24 Rate Blood Pressure 100/63 121/61 127/59 [left brachial] O2 Sat by Pulse 98 98 97 Oximetry 12/30/18 12/30/18 09:38 09:40 Temperature Pulse Rate [ 89 96 H left brachial] Respiratory 24 24 Rate Blood Pressure 122/58 118/50 [left brachial] O2 Sat by Pulse 95 96 Oximetry Progress - Progress Progress: 12/30/18 12:16 pt here with acute on chronic respiratory failure. hypercarbia. restarted bipap. breathing treatment. blood culture. admit for correction. rocephin started for right lower lobe abnormality - Results/Orders Results/Orders: right lower lobe infiltrate vs atelectasis. see report for details Laboratory Results - last 24 hr 12/30/18 12/30/18 12/30/18 09:40 09:40 09:40 WBC 11.9 H RBC 3.49 L Hgb 9.1 L Hct 30.6 L MCV 87.8 MCH 26.2 L MCHC 29.8 L RDW 15.3 H Plt Count 235 MPV 8.5 Absolute Neuts (auto) 9.20 H Absolute Lymphs (auto) 1.30 Absolute Monos (auto) 1.20 H Absolute Eos (auto) 0.20 Absolute Basos (auto) 0.00 Neutrophils % 77.5 Lymphocytes % 10.7 L Monocytes % 10.3 H Eosinophils % 1.4 Basophils % 0.1 PT 9.3 INR 0.93 PTT (SP) 26.6 pCO2 pO2 HCO3 ABG pH ABG O2 Saturation ABG Base Excess ABG Deoxyhemoglobin Oxyhemoglobin % Carboxyhemoglobin % Methemoglobin % Sat Calc Total Hemoglobin Sodium Potassium Chloride Carbon Dioxide Anion Gap BUN Creatinine BUN/Creatinine Ratio Random Glucose Serum Osmolality Lactic Acid Calcium Magnesium Total Bilirubin AST ALT Alkaline Phosphatase Creatine Kinase 30 L CK-MB (CK-2) 1.9 CK-MB (CK-2) % Not Reportable Troponin I < 0.02 B-Natriuretic Peptide 25.4 Serum Total Protein Albumin Globulin Albumin/Globulin Ratio TSH Urine Color Urine Appearance Urine pH Ur Specific Endeavor Urine Protein Urine Glucose (UA) Urine Ketones Urine Blood Urine Nitrite Urine Bilirubin Urine Urobilinogen Ur Leukocyte Esterase Urine RBC Urine WBC Ur Epithelial Cells Amorphous Sediment Urine Bacteria 12/30/18 12/30/18 12/30/18 09:40 09:55 09:55 WBC RBC Hgb Hct MCV MCH MCHC RDW Plt Count MPV Absolute Neuts (auto) Absolute Lymphs (auto) Absolute Monos (auto) Absolute Eos (auto) Absolute Basos (auto) Neutrophils % Lymphocytes % Monocytes % Eosinophils % Basophils % PT INR PTT (SP) pCO2 pO2 HCO3 ABG pH ABG O2 Saturation ABG Base Excess ABG Deoxyhemoglobin Oxyhemoglobin % Carboxyhemoglobin % Methemoglobin % Sat Calc Total Hemoglobin Sodium 139 Potassium 4.1 Chloride 82 L Carbon Dioxide 43 H Anion Gap 18.1 H BUN 13 Creatinine 0.63 BUN/Creatinine Ratio 20.6 H Random Glucose 182 H Serum Osmolality 282.3 Lactic Acid 1.2 Calcium 9.0 Magnesium 2.0 Total Bilirubin 0.2 AST 23 ALT 21 Alkaline Phosphatase 91 Creatine Kinase CK-MB (CK-2) CK-MB (CK-2) % Troponin I B-Natriuretic Peptide Serum Total Protein 7.4 Albumin 3.5 Globulin 3.9 H Albumin/Globulin Ratio 0.9 L TSH 1.92 Urine Color Yellow Urine Appearance Clear Urine pH 8.0 H Ur Specific [place] 1.020 Urine Protein Negative Urine Glucose (UA) Negative Urine Ketones Negative Urine Blood Negative Urine Nitrite Negative Urine Bilirubin Negative Urine Urobilinogen 0.2 Ur Leukocyte Esterase Negative Urine RBC 0 Urine WBC 0 Ur Epithelial Cells 0 Amorphous Sediment Trace Urine Bacteria 0 12/30/18 10:28 WBC RBC Hgb Hct MCV MCH MCHC RDW Plt Count MPV Absolute Neuts (auto) Absolute Lymphs (auto) Absolute Monos (auto) Absolute Eos (auto) Absolute Basos (auto) Neutrophils % Lymphocytes % Monocytes % Eosinophils % Basophils % PT INR PTT (SP) pCO2 115 H* pO2 89 HCO3 55.5 ABG pH 7.310 L ABG O2 Saturation 97.9 ABG Base Excess 25.8 ABG Deoxyhemoglobin 2.1 Oxyhemoglobin % 95.2 Carboxyhemoglobin % -0.1 L Methemoglobin % Sat 2.8 H Calc Total Hemoglobin 8.6 L Sodium Potassium Chloride Carbon Dioxide Anion Gap BUN Creatinine BUN/Creatinine Ratio Random Glucose Serum Osmolality Lactic Acid Calcium Magnesium Total Bilirubin AST ALT Alkaline Phosphatase Creatine Kinase CK-MB (CK-2) CK-MB (CK-2) % Troponin I B-Natriuretic Peptide Serum Total Protein Albumin Globulin Albumin/Globulin Ratio TSH Urine Color Urine Appearance Urine pH Ur Specific [place] Urine Protein Urine Glucose (UA) Urine Ketones Urine Blood Urine Nitrite Urine Bilirubin Urine Urobilinogen Ur Leukocyte Esterase Urine RBC Urine WBC Ur Epithelial Cells Amorphous Sediment Urine Bacteria Departure - Departure Clinical Impression: Hypercarbia, Generalized weakness COPD (chronic obstructive pulmonary disease) Qualifiers: COPD type: COPD with acute exacerbation Qualified Code(s): J44.1 - Chronic obstructive pulmonary disease with (acute) exacerbation Disposition: Admit Patient Departure Forms: ED Discharge - Pt. Copy, Patient Portal Self Enrollment Referrals: SHEMAR FAJARDO [Primary Care Provider] - 1-2 Weeks Home Medications: Ambulatory Orders Albuterol Sulfate Nebs [Proventil Nebs] 2.5 mg INH QID 03/13/15 Diltiazem HCl [Cardizem] 60 mg PO TID 03/13/15 Formoterol Fumarate [Foradil Aerolizer] 12 mcg IN BID 03/13/15 Furosemide [Lasix] 40 mg PO BID 03/13/15 Metformin HCl [Glucophage] 500 mg PO BID 03/13/15 Roflumilast [Daliresp] 500 mcg PO DAILY 03/13/15 Simvastatin [Zocor] 10 mg PO BEDTIME 03/13/15 Tamsulosin HCl [Flomax] 0.4 mg PO BEDTIME 03/13/15 raNITIdine HCL [Zantac] 150 mg PO DAILY 03/13/15 Tramadol HCl 50 mg PO Q8HR PRN #20 tab 04/26/18 Albuterol Sulfate [Proair Hfa] 2 puff INH BID PRN 05/22/18 Calcium Carbonate (Antacid) [Tums] 500 mg PO DAILY PRN 05/22/18 Cholecalciferol [Vitamin D3] 400 unit PO BID 05/22/18 Cyanocobalamin [Vitamin B-12] 1,000 mcg PO DAILY 05/22/18 Ferrous Sulfate 325 mg PO DAILY 05/22/18 Metoprolol Tartrate [Lopressor] 25 mg PO BID 05/22/18 Temazepam [Restoril] 30 mg PO BEDTIME 05/22/18 Tiotropium [place]-Olodaterol [Stiolto Respimat 2.5-2.5 Mcg/Act] 2 puff INH DAILY 05/22/18 Bisacodyl [Dulcolax Tab] 10 mg PO DAILY tab 05/25/18 Polyethylene Glycol 3350 [Miralax] 17 gm PO DAILY 20 Days #30 pckt 05/25/18 Prednisone 5 mg PO DAILY #0 05/25/18 Dextromethorphan-Guaifenesin [Mucinex Dm 30-600 mg] 1 tab PO BID 12/30/18 Decision To Admit - Decistion To Admit Decision to Admit Reason: Medical Nature Decision to Admit Date: 12/30/18 Decision to Admit Time: 12:13
[2018-12-30] MEDS ORDERED: IPRATROPIUM/ALBUTEROL 3 ML VIAL NEB ONE (11:40)
[2018-12-30] MEDS ORDERED: cefTRIAXone SODIUM 1 GM VIAL ONE (11:46)
[2018-12-30] MEDS ORDERED: SODIUM CHL 0.9% 50ML MIN-BAG+ 50 ML IVPB ONE (11:47)
[2018-12-30] MEDS: cefTRIAXone SODIUM 1 GM in SODIUM CHL 0.9% 50ML MIN-BAG+ 50 ML IVPB ONE ×2 (12:02→12:21)
--- NOTE | 2018-12-30 13:34 | HP ---
SUPERVISING PHYSICIAN: Rolf Whitlock M.D. CHIEF COMPLAINT: Light-headedness and shortness of breath. HISTORY OF PRESENT ILLNESS: This is a 73 year-old male patient who has a significant history of chronic obstructive pulmonary disease. He routinely has shortness of breath due to his COPD and actually utilizes BiPAP and oxygen at home. His shortness of breath and cough has worsened over the last 3 to 4 days and today he actually got light-headed and felt dizzy, so he decided to come to the Emergency Room. It was also suggested that the patient has been using the BiPAP with his nasal cannula and upon admission his vital signs showed temperature 98.7, heart rate 96, blood pressure 100/63, respiratory rate 24, O2 sat 95% on 3 liters nasal cannula, but his ABG showed a pCO2 of 115. His baseline CO2 is approximately 70. His pO2 was 89 and pH was 7.3. His O2 sat per ABG was 97.9%. He also has the possibility of an undiagnosed lung cancer or metastatic process as he has a 4 cm solid lobulated and spiculated mass that is suspicious for primary lung carcinoma that was found on CT scan in January of 2018 and he has opted for no additional diagnostic testing or treatment. Labs showed a WBC of 11,900 with hemoglobin 9.1, hematocrit 30.6. Chemistry showed sodium 139, potassium 4.1, chloride 82, carbon dioxide 43, anion gap 18.1, glucose 113, lactic acid 1.2. Liver enzymes were within normal limits. Cardiac enzymes were negative. Urinalysis was unremarkable. Blood cultures were completed. Chest x-ray showed deterioration of the right lung base with increasing pleural and parenchymal density opacifying and obscuring the hemidiaphragm consistent with acute inflammatory process and/or atelectasis, and improved left lung with minimal haziness in the lateral lung base and peripherally in the upper lung staples suggesting minimal scarring or infiltrate. He was given several breathing treatments in the Emergency Room. His BiPAP was utilized. He was started on Rocephin and I was called for hospital admission. PAST MEDICAL HISTORY: 1. Right pulmonary nodule per CT of the chest in January of 2018. it is a 4 cm solid mass lobulated and spiculated suspicious for primary lung carcinoma. The patient has declined any treatment or testing. 2. Chronic obstructive pulmonary disease. 3. Benign prostatic hypertrophy. 4. Hyperlipidemia. 5. Type 2 diabetes on oral therapy. 6. Hypertension. 7. Coronary artery disease. PAST SURGICAL HISTORY: 1. Appendectomy. CURRENT OUTPATIENT MEDICATIONS: 1. Albuterol. 2. Calcium carbonate. 3. Vitamin D3. 4. Cyanocobalamin. 5. Dextromethorphan/Guaifenesin. 6. Ferrous sulfate. 7. Bisacodyl. 8. Diltiazem. 9. Foradil Aerolizer. 10. Furosemide. 11. Metformin. 12. Metoprolol tartrate. 13. Polyethylene glycol. 14. Prednisone. 15. Ranitidine. 16. Daliresp. 17. Simvastatin. 18. Tamsulosin. 19. Temazepam. 20. Tiotropium/Olodaterol. 21. Tramadol. ALLERGIES: NO KNOWN DRUG ALLERGIES. FAMILY HISTORY: Positive for GI problems, abdominal aortic aneurysm, COPD and CVA. SOCIAL HISTORY: He is . He lives in [place]. He has 6 grown children. He has a history of smoking cigarettes from age 16 to age 64. He smoked approximately 2 packs per day and he quit about 7 to 8 years ago. He denies any ETOH or illicit drug use. REVIEW OF SYSTEMS: GENERAL: Positive for subjective fever and chills. Negative for weight gain or fatigue. HEENT: Negative for sinus symptoms, ear pain, vision changes or sore throat. RESPIRATORY: Positive for shortness of breath, coughing and wheezing as well as a positive history of emphysema. CARDIOVASCULAR: Negative for chest pain, palpitations or tachycardia. GASTROINTESTINAL: Positive for chronic constipation. Negative for nausea, vomiting, diarrhea or abdominal pain. GENITOURINARY: Negative for dysuria, polyuria or hematuria. MUSCULOSKELETAL: Negative for arthralgias or myalgias. SKIN: Negative for lesions or rashes. NEUROLOGIC: Positive for light-headedness. Negative for headaches or seizures. HEMATOLOGIC: Negative for unexplained bruising or transfusion reaction. PHYSICAL EXAMINATION: VITAL SIGNS: Temperature 98.9, heart rate 96, blood pressure 105/82, respiratory rate 24, O2 sat 100% utilizing BiPAP. GENERAL: This is an obese 73 year-old male patient sitting on the side of his bed. He is in mild respiratory distress. HEENT: Normocephalic and atraumatic. Pupils are equal and reactive. Oropharynx is clear. NECK: Supple without mass. RESPIRATORY: Diminished breath sounds throughout with some expiratory wheezing in all lung staples. He is somewhat tachypneic and he has to speak in short phrases due to his shortness of breath. CHEST: There is equal rise and fall of the chest with inspiration and expiration. CARDIOVASCULAR: Regular rate and rhythm. At times he is tachycardic. GASTROINTESTINAL: Abdomen is soft, nondistended, non-tender. Bowel sounds are positive. EXTREMITIES: No clubbing, cyanosis or edema. NEUROLOGIC: He is awake, alert and oriented times three. Cranial nerves II-XII are grossly intact. SKIN: Warm and dry. LABORATORY: Labs and films are as per the History of Present Illness with the exception of the followup ABG which after 3 hours on the BiPAP showed a pCO2 of 104, pO2 of 128, bicarb 55.7, O2 is 100%. ASSESSMENT: 1. Hypercapnic respiratory failure with a CO2 of 115 on admission. His baseline CO2 is about 70. 2. Concerns for developing bilateral pneumonia, community acquired, with an admitting respiratory rate of 24, heart rate 108, and WBCs are 11,900, and he was significantly short of breath. 3. Chronic obstructive pulmonary disease with acute exacerbation. He does wear BiPAP at home. 4. A 4 cm lobulated and spiculated pulmonary nodule per CT scan in January of 2018 that is concerning for a primary lung carcinoma. The patient has declined treatment or further testing. 5. Hypertension on medications. 6. Benign prostatic hypertrophy on medications. 7. Diabetes mellitus type 2 on oral medications. 8. Coronary artery disease. 9. Chronic constipation. PLAN: The patient has been admitted to the hospital. Breathing treatments and aggressive pulmonary hygiene have been ordered. We will utilize his CPAP and I will recheck an ABG in the morning. I have started extensive teaching of not wearing his mask and his nasal cannula together. His home medications have been restarted. He is also going to continue on his Rocephin and I have added azithromycin. Will monitor cultures as they become available. He has been started on Lovenox for DVT prophylaxis and Protonix for ulcer prophylaxis. Will also check lab and a chest x-ray in the morning. He has also been put on a.c. and h.s. blood sugar checks with sliding scale NovoLog insulin. Will continue to monitor closely and follow as needed. #[id number] [facility]
[2018-12-30] MEDS ORDERED: ONDANSETRON INJ 4 MG/2 ML VIAL IV PRN (14:31)
[2018-12-30] MEDS ORDERED: IPRATROPIUM/ALBUTEROL 3 ML VIAL INH PRN (14:31)
[2018-12-30] MEDS ORDERED: SODIUM CHLORIDE 0.9% (FLUSH) 10 ML SYG IV PRN (14:31)
[2018-12-30] MEDS ORDERED: traMADol HCL 50 MG TAB PO PRN (14:40)
[2018-12-30] MEDS ORDERED: IV SET AND CAP CHANGE INJ INJ SCH (15:00)
[2018-12-30] MEDS ORDERED: GLUCAGON INJ 1 MG VIAL SUBCU PRN (15:11)
[2018-12-30] MEDS ORDERED: DEXTROSE 50% 25 GM/50 ML SYG IV PRN (15:11)
[2018-12-30] MEDS: IPRATROPIUM/ALBUTEROL 3 ML VIAL INH SCH ×2 (16:35→20:29)
[2018-12-30] MEDS: diltiaZEM HCL TAB 30 MG TAB PO SCH ×2 (16:59→20:34)
[2018-12-30] MEDS: FUROSEMIDE 40 MG TAB PO SCH (16:59)
[2018-12-30] MEDS: metFORMIN HCL 500 MG TAB PO SCH (16:59)
[2018-12-30] MEDS: INSULIN LISPRO 100 UNITS/ML PEN SUBCU SCH ×2 (17:05→21:04)
[2018-12-30] MEDS ORDERED: METOPROLOL TARTRATE 25 MG TAB ONE (18:59)
[2018-12-30] MEDS ORDERED: TAMSULOSIN 0.4 MG CAP ONE (18:59)
[2018-12-30] MEDS ORDERED: SIMVASTATIN 10 MG TAB PO ONE (18:59)
[2018-12-30] MEDS ORDERED: methylPREDNISolone SODIUM SUC 125 MG/2 ML VIAL IV ONE (19:00)
[2018-12-30] MEDS ORDERED: TEMAZEPAM 15 MG CAP ONE (19:00)
[2018-12-30] MEDS ORDERED: ENOXAPARIN SODIUM 40 MG/0.4 ML SYG SUBCU ONE (19:00)
[2018-12-30] MEDS ORDERED: SODIUM CHLORIDE 0.9% 250ML 250 ML ONE (19:46)
[2018-12-30] MEDS ORDERED: AZITHROMYCIN IV 500 MG VIAL IVPB ONE (19:46)
[2018-12-30] MEDS: AZITHROMYCIN IV 500 MG in SODIUM CHLORIDE 0.9% 250ML 250 ML IVPB SCH (19:52)
[2018-12-30] MEDS: TEMAZEPAM 15 MG CAP PO SCH (20:34)
[2018-12-30] MEDS: TAMSULOSIN 0.4 MG CAP PO SCH (20:36)
[2018-12-30] MEDS: METOPROLOL TARTRATE 50 MG TAB PO SCH (20:36)
[2018-12-30] MEDS: ENOXAPARIN SODIUM 40 MG/0.4 ML SYG SUBCU SCH (20:37)
[2018-12-30] MEDS: guaiFENesin ER TAB 600 MG TAB PO SCH (20:38)
[2018-12-30] MEDS: SIMVASTATIN 20 MG TAB PO SCH (20:39)
[2018-12-30] MEDS: SODIUM CHLORIDE 0.9% (FLUSH) 10 ML SYG IV SCH (21:05)
[2018-12-30] MEDS: FORMOTEROL FUMARATE 12 MCG IN SCH (21:11)
[2018-12-31] MEDS: ACETAMINOPHEN 325 MG TAB PO PRN ×2 (02:50→18:01)
[2018-12-31] MEDS ORDERED: methylPREDNISolone SODIUM SUC 125 MG/2 ML VIAL IV SCH (06:00)
--- NOTE | 2018-12-31 07:01 | RAD ---
EXAM DESCRIPTION: Chest,2 Views CLINICAL HISTORY: hypercapnea COMPARISON: December 30, 2018 and May 23, 2018 TECHNIQUE: PA/lateral FINDINGS: Persistent moderate right pleural effusion. Right basilar consolidation. Heart size normal. Diffuse increased interstitial markings are chronic. IMPRESSION: 1. Persistent right basilar pneumonia with effusion Electronically signed by: Sunil Dorman MD 12/31/2018 6:59 AM CDT
[2018-12-31] MEDS: INSULIN LISPRO 100 UNITS/ML PEN SUBCU SCH ×4 (07:13→20:51)
[2018-12-31] MEDS: metFORMIN HCL 500 MG TAB PO SCH ×2 (07:14→17:43)
[2018-12-31] MEDS: IPRATROPIUM/ALBUTEROL 3 ML VIAL INH SCH ×4 (08:04→19:49)
[2018-12-31] MEDS ORDERED: SODIUM CHL 0.9% 50ML MIN-BAG+ 50 ML IVPB ONE (08:18)
[2018-12-31] MEDS ORDERED: cefTRIAXone SODIUM 1 GM VIAL ONE (08:19)
[2018-12-31] MEDS: diltiaZEM HCL TAB 30 MG TAB PO SCH ×3 (09:09→20:25)
[2018-12-31] MEDS: BISACODYL TAB 5 MG TAB PO SCH (09:09)
[2018-12-31] MEDS: predniSONE 5 MG TAB PO SCH (09:10)
[2018-12-31] MEDS: METOPROLOL TARTRATE 50 MG TAB PO SCH ×2 (09:10→20:25)
[2018-12-31] MEDS: POLYETHYLENE GLYCOL 3350 17 GM PCKT PO SCH (09:10)
[2018-12-31] MEDS: FORMOTEROL FUMARATE 12 MCG IN SCH ×2 (09:10→20:27)
[2018-12-31] MEDS: guaiFENesin ER TAB 600 MG TAB PO SCH ×2 (09:10→20:26)
[2018-12-31] MEDS: FUROSEMIDE 40 MG TAB PO SCH ×2 (09:10→16:35)
[2018-12-31] MEDS: cefTRIAXone SODIUM 1 GM in SODIUM CHL 0.9% 50ML MIN-BAG+ 50 ML IVPB SCH (09:11)
[2018-12-31] MEDS: SODIUM CHLORIDE 0.9% (FLUSH) 10 ML SYG IV SCH ×2 (09:11→20:25)
[2018-12-31] MEDS: NON-FORMULARY MEDICATION 1 EA MIS (Roflumilast [Daliresp] 500 MCG) PO SCH (09:11)
[2018-12-31] MEDS: NON-FORMULARY MEDICATION 1 EA MIS (Tiotropium Bromide-Olodaterol [Stiolto Respimat 2.5-2.5 INH SCH (09:11)
--- NOTE | 2018-12-31 11:56 | PN ---
SUPERVISING PHYSICIAN: Rolf Whitlock MD DATE: 12/31/18 SUBJECTIVE: The patient is lying in bed. He has BiPAP on. He feels much better today. He has much less shortness of breath. He has no chest pain, nausea or vomiting. OBJECTIVE: VITAL SIGNS: Temperature 98. Heart rate 96. Blood pressure 143/78. Respiratory rate 20. O2 saturation 96% on BiPAP. RESPIRATORY: He has a few scattered expiratory wheezes, but much improved since yesterday. Occasionally, he does get tachypneic with exertion, but again that has improved since yesterday. CARDIAC: Regular rate and rhythm. At times, he is slightly tachycardic. GASTROINTESTINAL: Abdomen is soft, nondistended, nontender. Bowel sounds are positive. NEUROLOGIC: Awake, alert and oriented times three. LABORATORY: WBCs have normalized to 9.3, hemoglobin 9.5, hematocrit 30.9. He does have a left shift on his differential. ABGs this morning showed PCO2 64, PO2 111, bicarb 49, pH 7.5, O2 saturation 99.5. Blood sugars have run between 113 and 175. Sodium 140, potassium 4.4, chloride 85, carbon dioxide 41, BUN 17, creatinine 0.71, calcium 9. Preliminary blood cultures are negative. Chest x- ray shows persistent right basilar pneumonia with effusion. All other labs and films have been reviewed via the EMR. ASSESSMENT: 1. Hypercapnic respiratory failure with a CO2 of 115 on admission. His baseline CO2 is about 70. 2. Concerns for developing bilateral pneumonia. Per x-ray today, he does have a right lower lobe pneumonia, most likely community acquired. His admitting respiratory rate was 24, heart rate 108, and WBCs wee 11,900, and he was significantly short of breath. 3. Chronic obstructive pulmonary disease with acute exacerbation. He does wear BiPAP at home. 4. A 4 cm lobulated and spiculated pulmonary nodule per CT scan in January of 2018 that is concerning for a primary lung carcinoma. The patient has declined further testing or treatment. 5. Hypertension on medications. 6. Benign prostatic hypertrophy on medications. 7. Diabetes mellitus, type 2. 8. Coronary artery disease. 9. Chronic constipation. PLAN: We will continue present supportive care. I have decreased his Solu- Medrol to 40 mg q.12h. and tomorrow, he will go to p.o. prednisone if he continues to improve. I have ordered lab and chest x-ray. He does have [facility]. They will need to be contacted on discharge. [employer] was contacted for help with discharge. Hopefully he can be discharged tomorrow with close followup with his primary care physician. We did do extensive COPD teaching. We will adjust his BiPAP settings and eventually titrate him over to his CPAP settings at home. We will continue to monitor the patient closely and follow as needed. #[id number] [facility]
[2018-12-31] MEDS: methylPREDNISolone SODIUM SUC 40 MG/ML VIAL IV SCH ×2 (12:18→23:53)
[2018-12-31] MEDS ORDERED: SODIUM CHLORIDE 0.9% 250ML 250 ML ONE (19:00)
[2018-12-31] MEDS ORDERED: AZITHROMYCIN IV 500 MG VIAL IVPB ONE (19:02)
[2018-12-31] MEDS: AZITHROMYCIN IV 500 MG in SODIUM CHLORIDE 0.9% 250ML 250 ML IVPB SCH (19:44)
[2018-12-31] MEDS: TEMAZEPAM 15 MG CAP PO SCH (20:25)
[2018-12-31] MEDS: TAMSULOSIN 0.4 MG CAP PO SCH (20:26)
[2018-12-31] MEDS: SIMVASTATIN 20 MG TAB PO SCH (20:26)
[2018-12-31] MEDS: ENOXAPARIN SODIUM 40 MG/0.4 ML SYG SUBCU SCH (20:26)
[2018-12-31] MEDS ORDERED: BISACODYL SUPPOSITORY 10 MG PR ONE (22:07)
[2018-12-31] MEDS ORDERED: BISACODYL TAB 5 MG TAB PO ONE (22:44)
[2019-01-01 06:21] VITALS: O2SAT 95
[2019-01-01] MEDS: INSULIN LISPRO 100 UNITS/ML PEN SUBCU SCH ×2 (07:13→12:03)
[2019-01-01] MEDS: metFORMIN HCL 500 MG TAB PO SCH (07:14)
--- NOTE | 2019-01-01 07:33 | RAD ---
EXAM: XR Chest, 2 Views CLINICAL HISTORY: The patient is 73 years old and is Male; RLL PNA TECHNIQUE: Frontal and lateral views of the chest. COMPARISON: Chest radiograph from 12/31/2018 FINDINGS: LUNGS: Persistent small right pleural effusion with underlying atelectasis or pneumonia in the right lower lung. This is unchanged. Minimal subsegmental atelectasis again noted projecting over the left lower lung. PLEURAL SPACE: See above. No obvious pneumothorax. HEART: No significant enlargement of the cardiac silhouette. MEDIASTINUM: Unremarkable. BONES/JOINTS: The bones are unchanged. IMPRESSION: No significant interval change visualized. Persistent small right pleural effusion with underlying atelectasis or pneumonia. Electronically signed by: Manasa Delacruz MD 01/01/2019 7:32 AM CDT
[2019-01-01] MEDS ORDERED: SODIUM CHL 0.9% 50ML MIN-BAG+ 50 ML IVPB ONE (08:18)
[2019-01-01] MEDS ORDERED: cefTRIAXone SODIUM 1 GM VIAL ONE (08:19)
[2019-01-01] MEDS ORDERED: POTASSIUM CHLORIDE 20 MEQ TAB PO ONE (08:24)
[2019-01-01] MEDS: IPRATROPIUM/ALBUTEROL 3 ML VIAL INH SCH ×2 (08:32→13:00)
[2019-01-01] MEDS ORDERED: POTASSIUM CHLORIDE 10 MEQ TAB PO ONE (08:35)
[2019-01-01] MEDS: predniSONE 5 MG TAB PO SCH (08:40)
[2019-01-01] MEDS: diltiaZEM HCL TAB 30 MG TAB PO SCH (08:43)
[2019-01-01] MEDS: guaiFENesin ER TAB 600 MG TAB PO SCH (08:43)
[2019-01-01] MEDS: METOPROLOL TARTRATE 50 MG TAB PO SCH (08:44)
[2019-01-01] MEDS: FUROSEMIDE 40 MG TAB PO SCH (08:44)
[2019-01-01] MEDS: NON-FORMULARY MEDICATION 1 EA MIS (Tiotropium Bromide-Olodaterol [Stiolto Respimat 2.5-2.5 INH SCH (08:45)
[2019-01-01] MEDS: SODIUM CHLORIDE 0.9% (FLUSH) 10 ML SYG IV SCH (08:45)
[2019-01-01] MEDS: FORMOTEROL FUMARATE 12 MCG IN SCH (08:45)
[2019-01-01] MEDS: BISACODYL TAB 5 MG TAB PO SCH (08:45)
[2019-01-01] MEDS: NON-FORMULARY MEDICATION 1 EA MIS (Roflumilast [Daliresp] 500 MCG) PO SCH (08:45)
[2019-01-01] MEDS: cefTRIAXone SODIUM 1 GM in SODIUM CHL 0.9% 50ML MIN-BAG+ 50 ML IVPB SCH (08:46)
[2019-01-01] MEDS: POLYETHYLENE GLYCOL 3350 17 GM PCKT PO SCH (08:46)
[2019-01-01] MEDS ORDERED: predniSONE 20 MG TAB PO SCH (09:00)
[2019-01-01 10:12] VITALS: BP 160/75; TEMP 98.2
[2019-01-01] MEDS ORDERED: AZITHROMYCIN IV 500 MG in SODIUM CHLORIDE 0.9% 250ML 250 ML IVPB ONE (11:10)
[2019-01-01] MEDS ORDERED: SODIUM CHLORIDE 0.9% 250ML 250 ML ONE (11:35)
[2019-01-01] MEDS ORDERED: AZITHROMYCIN IV 500 MG VIAL IVPB ONE (11:36)
--- NOTE | 2019-01-02 15:34 | DS ---
SUPERVISING PHYSICIAN: Rolf Whitlock MD (FAX COPY TO DR. HILL FAJARDO AT [phone]) DISCHARGE DIAGNOSES: 1. Hypercapnic respiratory failure with a CO2 of 115 on admission. His baseline CO2 is about 70. 2. Concerns for developing bilateral pneumonia, community acquired, with an admitting respiratory rate of 24, heart rate 108, and WBCs are 11,900, and he was significantly short of breath. 3. Chronic obstructive pulmonary disease with acute exacerbation. He does wear BiPAP at home. 4. A 4 cm lobulated and spiculated pulmonary nodule per CT scan in January of 2018 that is concerning for a primary lung carcinoma. The patient has declined treatment or further testing. 5. Hypertension on medications. 6. Benign prostatic hypertrophy on medications. 7. Diabetes mellitus type 2 on oral medications. 8. Coronary artery disease. 9. Chronic constipation HISTORY OF PRESENT ILLNESS: This is a 73 year-old male patient who has a significant history of chronic obstructive pulmonary disease. He routinely has shortness of breath due to his COPD and actually utilizes BiPAP and oxygen at home. His shortness of breath and cough had worsened over the last 3 to 4 days prior to admission but on the day of admission, he actually got light-headed and felt dizzy, so he decided to come to the Emergency Room. It was also suggested that the patient has been using the BiPAP with his nasal cannula and upon admission his vital signs showed temperature 98.7, heart rate 96, blood pressure 100/63, respiratory rate 24, oxygen saturation 95% on 3 liters nasal cannula, his ABG showed a pCO2 of 115. His baseline CO2 is approximately 70. His pO2 was 89 and pH was 7.3. His oxygen saturation per ABG was 97.9%. He also has the possibility of an undiagnosed lung cancer or metastatic process as he has a 4 cm solid lobulated and spiculated mass that is suspicious for primary lung carcinoma that was found on CT scan in January of 2018 He has opted for no additional diagnostic testing or treatment. Lab studies showed a WBC of 11,900 with hemoglobin 9.1, hematocrit 30.6. Chemistry showed sodium 139, potassium 4.1, chloride 82, carbon dioxide 43, anion gap 18.1, glucose 113, lactic acid 1.2. Liver enzymes were within normal limits. Cardiac enzymes were negative. Urinalysis was unremarkable. Blood cultures were completed. Chest x-ray showed deterioration of the right lung base with increased pleural and parenchymal density opacifying and obscuring the hemidiaphragm consistent with acute inflammatory process and/or atelectasis, and improved left lung with minimal haziness in the lateral lung base and peripherally in the upper lung staples suggesting minimal scarring or infiltrate. He was given several breathing treatments in the Emergency Room. His BiPAP was utilized. He was started on Rocephin and he was admitted to the hospital. HOSPITAL COURSE: Breathing treatments and aggressive pulmonary hygiene had been ordered. BiPAP was utilized and his ABGs were rechecked with improvement. We did extensive teaching on chronic obstructive pulmonary disease and not wearing his mask with his nasal cannula as well as retaining C02. Home medications were restarted. He was started on an IV steroid taper and tapered over to oral steroids. Rocephin was continued and azithromycin was added. He was placed on Lovenox for DVT prophylaxis and Protonix for ulcer prophylaxis. Serial lab and chest x-rays were also done. His blood sugar was controlled with sliding scale NovoLog insulin. He continued to improve daily and he is at his baseline breathing status and he will be discharged home today in stable condition. LABORATORY: WBC on admission was 11.900. They normalized to 9,300 and this morning were 13,000. Hemoglobin and hematocrit were stable at 9.5 and 30.9. Followup ABGs showed a PC02 of 104 with P02 of 128 and a pH of 7.35. The next morning his PC02 was 64, P02 of 111 with a pH of 7.5. Blood sugars ran between 91 and 259. His sodium was 142 with potassium of 3.5, chloride 89, carbon dioxide 36, BUN 25, creatinine 0.77. Liver function tests were within normal limits. Urinalysis was unremarkable. Blood cultures showed no growth after 48 hours. Chest x-ray this morning showed no significant interval change visualized, persistent small right pleural effusion with underlying atelectasis or pneumonia. DISCHARGE PLAN: The patient will be discharged home in stable condition. He is to have [facility] and they have been contacted. He is to resume previous diet and increase his activity as tolerated. He has a followup appointment with Dr. Hill Fajardo on 01/06/19 at 8:45 AM. In addition to his routine home medications, he will continue on his antibiotics, azithromycin and Cefdinir with a prednisone taper. He is on routine oral prednisone and he is to resume his prednisone after completing his taper. It is recommended at his appointment with Dr. Fajardo that he have his electrolytes checked as well as a chest x-ray. He did receive some potassium replacement prior to discharge. He is to return to the hospital or call Dr. Fajardo's office for any problems or complications. DISCHARGE MEDICATIONS: 1. Albuterol. 2. Foradil Aerolizer. 3. Diltiazem. 4. Tamsulosin. 5. Furosemide. 6. Simvastatin. 7. Daliresp. 8. Zantac. 9. Glucophage. 10. Tramadol. 11. Vitamin D3. 12. ProAir.HFA. 13. Ferrous sulfate. 14. Stiolto. 15. Cyanocobalamin. 16. TUMS antacid. 17. Lopressor. 18. Temazepam. 19. Dulcolax tab. 20. Miralax. 21. Prednisone. 22. Mucinex DM. 23. Azithromycin. 24. Cefdinir. 25. Prednisone taper. . #[id number] [facility]
== END 2019-01-01 13:55 | disposition home health service (06) | DRG 189 ==
LOC: ER 09:16 → MS 13:30 → OBSVTOIN 13:30
PROVIDERS: ADMIT Nurse Practitioner Acute Care; ATTEND Nurse Practitioner Acute Care
DX: J96.22 Acute and chronic respiratory failure with hypercapnia (principal); J44.1 Chronic obstructive pulmonary disease with (acute) exacerbation; J18.1 Lobar pneumonia, unspecified organism; C34.90 Malignant neoplasm of unspecified part of unspecified bronchus or lung; I10 Essential (primary) hypertension; N40.0 Benign prostatic hyperplasia without lower urinary tract symptoms; E11.9 Type 2 diabetes mellitus without complications; I25.10 Atherosclerotic heart disease of native coronary artery without angina pectoris; K59.09 Other constipation; E78.5 Hyperlipidemia, unspecified; E66.9 Obesity, unspecified; Z99.81 Dependence on supplemental oxygen; Z79.84 Long term (current) use of oral hypoglycemic drugs; Z79.52 Long term (current) use of systemic steroids; Z79.891 Long term (current) use of opiate analgesic; Z79.899 Other long term (current) drug therapy; Z87.891 Personal history of nicotine dependence; Z68.32 Body mass index [BMI] 32.0-32.9, adult

== ENCOUNTER 2019-01-30 10:31 | Inpatient (IN) | payer MEDICARE ==
[2019-01-30] MEDS ORDERED: SODIUM CHLORIDE 0.9% (FLUSH) 10 ML SYG IV PRN (10:45)
[2019-01-30] MEDS ORDERED: ONDANSETRON INJ 4 MG/2 ML VIAL IV ONE (10:45)
[2019-01-30] MEDS ORDERED: IPRATROPIUM/ALBUTEROL 3 ML VIAL NEB ONE (10:51)
--- NOTE | 2019-01-30 11:33 | RAD ---
EXAM: XR Chest, 1 View CLINICAL HISTORY: sob TECHNIQUE: Frontal view of the chest. COMPARISON: 01/01/2019. FINDINGS: Limitations: None. Lungs: Chronic obstructive changes present with progressive airspace consolidation in the right lung base. Pleural space: Increased small right pleural effusion. No pneumothorax. Heart: Stable cardiac shadow. Mediastinum: Unremarkable. Bones/joints: Unremarkable. IMPRESSION: Increased right basilar airspace consolidation and right pleural effusion compared to 01/01/2019. Electronically signed by: Alondra Snow MD 01/30/2019 11:32 AM CDT
[2019-01-30] MEDS ORDERED: PIPERACILLIN/TAZOBACTAM 4.5 GM in SODIUM CHLORIDE 0.9% 100ML 100 ML IVPB ONE (11:49)
--- NOTE | 2019-01-30 11:59 | ED.PDOC ---
History of Present Illness - General Chief Complaint: Respiratory Problem Stated Complaint: Difficulty breathing Time Seen by Provider: 01/30/19 10:45 - History of Present Illness Initial Comments: c/o acute sob and called ambulance , no chest pain or wheezing Timing/Duration: 4-6 hours Severity: moderate Improving Factors: nothing Worsening Factors: nothing Associated Symptoms: denies symptoms Allergies/Adverse Reactions: Allergies NO KNOWN ALLERGY Allergy (Verified 01/30/19 10:50) Home Medications: Ambulatory Orders RX: Albuterol Sulfate Nebs [Proventil Nebs] 2.5 mg INH QID 03/13/15 RX: Diltiazem HCl [Cardizem] 60 mg PO TID 03/13/15 RX: Formoterol Fumarate [Foradil Aerolizer] 12 mcg IN BID 03/13/15 RX: Furosemide [Lasix] 40 mg PO BID 03/13/15 RX: Metformin HCl [Glucophage] 500 mg PO BID 03/13/15 RX: Roflumilast [Daliresp] 500 mcg PO DAILY 03/13/15 RX: Simvastatin [Zocor] 10 mg PO BEDTIME 03/13/15 RX: Tamsulosin HCl [Flomax] 0.4 mg PO BEDTIME 03/13/15 RX: raNITIdine HCL [Zantac] 150 mg PO DAILY 03/13/15 RX: Tramadol HCl 50 mg PO Q8HR PRN #20 tab 04/26/18 RX: Albuterol Sulfate [Proair Hfa] 2 puff INH BID PRN 05/22/18 RX: Calcium Carbonate (Antacid) [Tums] 500 mg PO DAILY PRN 05/22/18 RX: Cholecalciferol [Vitamin D3] 400 unit PO BID 05/22/18 RX: Cyanocobalamin [Vitamin B-12] 1,000 mcg PO DAILY 05/22/18 RX: Ferrous Sulfate 325 mg PO DAILY 05/22/18 RX: Metoprolol Tartrate [Lopressor] 25 mg PO BID 05/22/18 RX: Temazepam [Restoril] 30 mg PO BEDTIME 05/22/18 RX: Tiotropium [place]-Olodaterol [Stiolto Respimat 2.5-2.5 Mcg/Act] 2 puff INH DAILY 05/22/18 RX: Bisacodyl [Dulcolax Tab] 10 mg PO DAILY tab 05/25/18 RX: Polyethylene Glycol 3350 [Miralax] 17 gm PO DAILY 20 Days #30 pckt 05/25/18 RX: Prednisone 5 mg PO DAILY #0 05/25/18 RX: Dextromethorphan-Guaifenesin [Mucinex Dm 30-600 mg] 1 tab PO BID 12/30/18 RX: Azithromycin 250 mg PO DAILY #3 tab 01/01/19 RX: Cefdinir 300 mg PO BID #16 capsule 01/01/19 RX: Prednisone See Taper PO DAILY #30 tab 01/01/19 Review of Systems - Review of Systems Constitutional: States: no symptoms reported EENTM: States: no symptoms reported Respiratory: States: see HPI Cardiology: States: no symptoms reported Gastrointestinal/Abdominal: States: no symptoms reported Genitourinary: States: no symptoms reported Musculoskeletal: States: no symptoms reported Skin: States: no symptoms reported Neurological: States: no symptoms reported Endocrine: States: no symptoms reported Hematologic/Lymphatic: States: no symptoms reported All other Systems: Reviewed and Negative Past Medical History (General) - Patient Medical History Hx Seizures: No Hx Stroke: No Hx Asthma: No Hx of COPD: Yes - emphysema Hx Cardiac Disorders: No Hx Congestive Heart Failure: No Hx Pacemaker: No Hx Hypertension: Yes Hx Diabetes: Yes Hx Gastroesophageal Reflux: Yes Hx Cancer: No Hx MRSA: No Surgical History: appendectomy - Vaccination History Hx Tetanus, Diphtheria Vaccination: Yes Hx Influenza Vaccination: Yes - 2018 Hx Pneumococcal Vaccination: Yes - Social History Hx Tobacco Use: Yes - Quit 2008 Hx Alcohol Use: No Hx Substance Use: No Hx Physical Abuse: No Hx Emotional Abuse: No Family Medical History - Family History Father Family History: No Known Hx Family Stroke: Yes - dad-ruptured brain anaeurysm Physical Exam - Physical Exam General Appearance: Alert Eyes, Ears, Nose, Throat Exam: PERRL/EOMI, normal ENT inspection Neck: non-tender, full range of motion, supple, other - decreased BS Bilateral Respiratory: chest non-tender, decreased breath sounds Cardiovascular/Chest: regular rate, rhythm Gastrointestinal/Abdominal: non tender Extremity: normal range of motion Neurologic: no motor/sensory deficits, alert, normal mood/affect, oriented x 3 Skin Exam: normal color Progress - Progress Progress: 01/30/19 11:59 01/30/19 10:45 Sodium Chloride 0.9% (Flush) [Saline Flush Syringe] 10 ml IV PRN PRN 01/30/19 10:46 EKG Stat Pulse Ox Stat 01/30/19 11:00 EKG STAT 01/30/19 11:49 Piperacillin/Tazobactam [Zosyn] 4.5 gm Sodium Chloride 0.9% 100Ml [NS (NACL 0.9%) 100ml] 100 ml IVPB ONCE Laboratory Results WBC 9.7 K/mm3 (4.8-10.8) 01/30/19 10:46 RBC 3.49 M/mm3 (4.70-6.10) L 01/30/19 10:46 Hgb 9.0 gm/dL (14.0-18.0) L 01/30/19 10:46 Hct 29.9 % (42.0-52.0) L 01/30/19 10:46 MCV 85.5 fl (80.0-94.0) 01/30/19 10:46 MCH 25.8 pg (27.0-31.0) L 01/30/19 10:46 MCHC 30.2 g/dL (33.0-37.0) L 01/30/19 10:46 RDW 16.4 % (11.5-14.5) H 01/30/19 10:46 Plt Count 268 K/mm3 (130-400) 01/30/19 10:46 MPV 7.4 fl (7.40-10.4) 01/30/19 10:46 Absolute Neuts (auto) 7.80 K/uL (1.8-6.8) H 01/30/19 10:46 Absolute Lymphs (auto) 0.90 K/uL (1.0-3.4) L 01/30/19 10:46 Absolute Monos (auto) 1.00 K/uL (0.2-0.8) H 01/30/19 10:46 Absolute Eos (auto) 0.10 K/uL (0.0-0.4) 01/30/19 10:46 Absolute Basos (auto) 0.00 K/uL (0.0-0.1) 01/30/19 10:46 Neutrophils % 80.2 % (42.0-78.0) H 01/30/19 10:46 Lymphocytes % 9.0 % (20.0-50.0) L 01/30/19 10:46 Monocytes % 9.8 % (2.0-9.0) H 01/30/19 10:46 Eosinophils % 0.9 % (1.0-5.0) L 01/30/19 10:46 Basophils % 0.1 % (0.0-2.0) 01/30/19 10:46 PT 9.8 SECONDS (9.0-10.9) 01/30/19 10:46 INR 0.98 (0.9-1.15) 01/30/19 10:46 PTT (SP) 29.4 SECONDS (21.8-31.6) 01/30/19 10:46 D-Dimer, Quantitative 0.31 mg/L FEU (0-0.49) 01/30/19 10:46 Sodium 142 mmol/L (135-145) 01/30/19 10:46 Potassium 4.2 mmol/L (3.6-5.0) 01/30/19 10:46 Chloride 80 mmol/L (101-111) L 01/30/19 10:46 Carbon Dioxide 49 mmol/L (21-31) H 01/30/19 10:46 Anion Gap 17.2 (12-18) 01/30/19 10:46 BUN 17 mg/dL (7-18) 01/30/19 10:46 Creatinine 0.60 mg/dL (0.6-1.3) 01/30/19 10:46 BUN/Creatinine Ratio 28.3 (10-20) H 01/30/19 10:46 Random Glucose 117 mg/dL (70-105) H 01/30/19 10:46 Serum Osmolality 285.7 mOsm/L (275-295) 01/30/19 10:46 Calcium 9.3 mg/dL (8.4-10.2) 01/30/19 10:46 Magnesium 1.6 mg/dL (1.8-2.5) L 01/30/19 10:46 Total Bilirubin 0.2 mg/dL (0.2-1.0) 01/30/19 10:46 Direct Bilirubin < 0.1 mg/dL (0-0.2) 01/30/19 10:46 Indirect Bilirubin 0.1 mg/dL (0.2-0.8) L 01/30/19 10:46 AST 16 IU/L (10-42) 01/30/19 10:46 ALT 19 IU/L (10-60) 01/30/19 10:46 Alkaline Phosphatase 83 IU/L (42-121) 01/30/19 10:46 Creatine Kinase 15 IU/L (38-174) L 01/30/19 10:46 CK-MB (CK-2) 2.4 ng/mL (0.0-4.4) 01/30/19 10:46 CK-MB (CK-2) % Not Reportable 01/30/19 10:46 Troponin I < 0.02 ng/mL (0.01-0.05) 01/30/19 10:46 B-Natriuretic Peptide 49.3 pg/ml (0-100) 01/30/19 10:46 Serum Total Protein 7.0 gm/dL (6.4-8.2) 01/30/19 10:46 Albumin 3.3 g/dl (3.2-5.5) 01/30/19 10:46 - Results/Orders Results/Orders: Case d/w Catarino Johnson : agreed to admit - EKG/XRAY/CT EKG: Sinus Departure - Departure Clinical Impression: Pneumonia, COPD (chronic obstructive pulmonary disease) Time of Disposition: 12:00 Disposition: Admit Patient Condition: Good Departure Forms: Patient Portal Self Enrollment Home Medications: Ambulatory Orders RX: Albuterol Sulfate Nebs [Proventil Nebs] 2.5 mg INH QID 03/13/15 RX: Diltiazem HCl [Cardizem] 60 mg PO TID 03/13/15 RX: Formoterol Fumarate [Foradil Aerolizer] 12 mcg IN BID 03/13/15 RX: Furosemide [Lasix] 40 mg PO BID 03/13/15 RX: Metformin HCl [Glucophage] 500 mg PO BID 03/13/15 RX: Roflumilast [Daliresp] 500 mcg PO DAILY 03/13/15 RX: Simvastatin [Zocor] 10 mg PO BEDTIME 03/13/15 RX: Tamsulosin HCl [Flomax] 0.4 mg PO BEDTIME 03/13/15 RX: raNITIdine HCL [Zantac] 150 mg PO DAILY 03/13/15 RX: Tramadol HCl 50 mg PO Q8HR PRN #20 tab 04/26/18 RX: Albuterol Sulfate [Proair Hfa] 2 puff INH BID PRN 05/22/18 RX: Calcium Carbonate (Antacid) [Tums] 500 mg PO DAILY PRN 05/22/18 RX: Cholecalciferol [Vitamin D3] 400 unit PO BID 05/22/18 RX: Cyanocobalamin [Vitamin B-12] 1,000 mcg PO DAILY 05/22/18 RX: Ferrous Sulfate 325 mg PO DAILY 05/22/18 RX: Metoprolol Tartrate [Lopressor] 25 mg PO BID 05/22/18 RX: Temazepam [Restoril] 30 mg PO BEDTIME 05/22/18 RX: Tiotropium [place]-Olodaterol [Stiolto Respimat 2.5-2.5 Mcg/Act] 2 puff INH DAILY 05/22/18 RX: Bisacodyl [Dulcolax Tab] 10 mg PO DAILY tab 05/25/18 RX: Polyethylene Glycol 3350 [Miralax] 17 gm PO DAILY 20 Days #30 pckt 05/25/18 RX: Prednisone 5 mg PO DAILY #0 05/25/18 RX: Dextromethorphan-Guaifenesin [Mucinex Dm 30-600 mg] 1 tab PO BID 12/30/18 RX: Azithromycin 250 mg PO DAILY #3 tab 01/01/19 RX: Cefdinir 300 mg PO BID #16 capsule 01/01/19 RX: Prednisone See Taper PO DAILY #30 tab 01/01/19
[2019-01-30] MEDS ORDERED: CEFEPIME 2 GM in SODIUM CHL 0.9% 50ML MIN-BAG+ 50 ML IVPB ONE (12:10)
[2019-01-30] MEDS ORDERED: CEFEPIME 2 GM VIAL ONE ×2 (12:16→19:08)
[2019-01-30] MEDS ORDERED: SODIUM CHL 0.9% 50ML MIN-BAG+ 50 ML IVPB ONE (12:17)
[2019-01-30] MEDS ORDERED: MAGNESIUM SULFATE PREMIX 2GM 2 GM in PREMIX BAG 1 BAG IVPB ONE ×2 (12:45→13:36)
--- NOTE | 2019-01-30 12:45 | HP ---
SUPERVISING PHYSICIAN: Rolf Whitlock M.D. CHIEF COMPLAINT: Shortness of breath. HISTORY OF PRESENT ILLNESS: Mr. Matos is a 73 year-old male patient who presented to the Emergency Department today via 911 complaining of acute onset of shortness of breath. He reports that he started having a productive cough with some green sputum over the last week that has progressively worsened to the point today that he was short of breath and he was needing to be seen in the E. R. for further evaluation. He was in the hospital recently for treatment of right lower lobe pneumonia. He was discharged on 01/01/19. On that episode he was treated as an outpatient once discharged with Cefdinir and azithromycin. He notes that he did fairly well and was seen in followup with Hill Ayala, his primary care provider, but again in the last week he has slowly had a decline in his respiratory effort resulting in shortness of breath. He does have a history of chronic obstructive pulmonary disease and emphysema. He was denying any chest pains, palpitations, nausea, vomiting or diaphoresis. On initial presentation to the Emergency Department this morning, he was afebrile at 98.4, blood pressure was showing to be at 140/66, respirations 20 to 22 with obvious shortness of breath, satting 97% on nasal cannula at 5 liters. He is chronically O2 dependent at home and he utilizes BiPAP at night. Laboratory studies showed he had a normal white count at 9,700 but did have a left shift. He is chronically anemic on this presentation, hemoglobin was 9, hematocrit 29.9. Blood gas analysis showed that he was in mild respiratory failure with a pH of 7.31 with a hypercapnic presentation of pCO2 of 118, pO2 65 on 5 liters nasal cannula satting 92%. Bicarb was 57.8. Chemistries showed normal renal function with creatinine 0.6. Liver functions are all within normal limits. Again, his CO2 was elevated at 49. Lactic acid was 0.6. Chest x-ray initially in the E. R., single view chest, per radiology interpretation showed increased right basilar airspace consolidation and right pleural effusion compared to previous on 01/01/19. This was followed-up with a CT of the chest with contrast with the patient having a history previously seen on CT a spiculated mass on the right side on this interpretation per radiology interpretation there was note of airspace consolidation of the right lower lung with underlying compressed lung and the large spiculated mass previously noted on the right was not seen on this current CT. There was also note of a small right pleural effusion on the CT of the chest. Mr. Matos, given his underlying risk factors of COPD and having recently been treated for right lower lobe pneumonia within the last 30 days, is going to be admitted for community acquired pneumonia for initiation of parenteral antibiotics and further evaluation. He was admitted in stable condition. PAST MEDICAL HISTORY: 1. Right pulmonary nodule noted on CT of the chest in January of 2018 with a 4 cm solid mass lobulated and spiculated suspicious for primary lung carcinoma with the patient at that time not pursuing any diagnostics or interventional therapy. 2. Chronic obstructive pulmonary disease with severe emphysema. 3. Benign prostatic hypertrophy. 4. Hyperlipidemia. 5. Type 2 diabetes, not insulin dependent. 6. Hypertension. 7. Coronary artery disease. PAST SURGICAL HISTORY: 1. Appendectomy. CURRENT OUTPATIENT MEDICATIONS: Awaiting an updated list of medications. Please refer to the electronic medical records for those current medications. ALLERGIES: NO KNOWN DRUG ALLERGIES. FAMILY HISTORY: Mother at age 90 from advanced age. Also had a history of stomach problems. Father at age 69 for abdominal aortic aneurysm. He has 1 brother who from chronic obstructive pulmonary disease and pneumonia at age 68. He has a sister currently living that had a stroke. He has another sister that from an overdose in her 50s. He has 1 son who has had meningitis at a young age and has had some continued difficulties mentally. SOCIAL HISTORY: The patient lives just outside of [place], [place]. He is for well over 47 years. He has 6 grown children. He does have a history of tobacco usage with smoking cigarettes since age 16 to age 64, approximately 2 packs a day at which time he quit in the last 7 to 8 years. He is a retired oil field driller. He denies any ETOH or illicit drug use. REVIEW OF SYSTEMS: Positive for chills and general malaise, but denied any fevers, unintentional weight loss but notes that he feels like he has gained some weight. HEENT: Positive for some nasal congestion. Denies any visual disturbances, headaches, sore throat, neck pain, stiffness or ear aches. CARDIOVASCULAR: Negative for any chest pains, palpitations, syncopal episodes or edema. RESPIRATORY: As noted in history of present illness, increasing worsening shortness of breath with a productive cough. GASTROINTESTINAL: Negative for any abdominal pains, diarrhea, nausea, vomiting, constipation or hematochezia. GENITOURINARY: Denied any dysuria, hematuria or polyuria. MUSCULOSKELETAL: No joint aches or muscle pains. SKIN: No lesions or rashes. ENDOCRINE: Denies any history of adrenal or thyroid disease but does have type 2 diabetes on oral therapy. NEUROLOGIC: Negative for any paresthesias, extremity weakness, syncopal episodes, headaches, ataxia or seizures. PSYCHIATRIC: No history of depression or psychosis. HEMATOLOGIC: Denies any unexplained bruising, bleeding or transfusion reactions. PHYSICAL EXAMINATION: VITAL SIGNS: On admission in the E. R., temperature 98.2, pulse 92 with blood pressure 140/66, respirations 20 to 22, satting 97% on 5 liters nasal cannula. Admission weight 98.2 kg which is essentially the same weight as he was on previous admission. His oxygenation on arrival to the Emergency Room showed that he was satting in the mid 90s but on nasal cannula which he is O2 dependent. Again, his ABGs showed that he had some degree of hypoxemia with a pO2 of 65, satting 92% on high flow nasal cannula. GENERAL: The patient is generally unkempt. Appears unwell but looks well nourished and well hydrated. Showing to be in mild distress from his shortness of breath. He is alert. HEENT: Tympanic membranes are clear bilaterally. Oropharynx is pink and moist without any lesions. NECK: Supple, non-tender. Full range of motion. No jugular venous distention. CHEST: Breath sounds were diminished throughout with some notable rhonchi heard on the right lower and posterior aspect just with very faint expiratory wheezing. CARDIOVASCULAR: Regular rate and rhythm without appreciable murmurs, gallops, or rubs. ABDOMEN: Soft, non-tender. Positive bowel sounds but obese. EXTREMITIES: Without any clubbing, cyanosis or edema. NEUROLOGIC: He was alert and oriented times three without any notable focal deficits. Cranial nerves II-XII are grossly intact. LABORATORY: White count 9,700. He did have a left shift. Hemoglobin 9, hematocrit 29.9 with a normocytic but hypochromic presentation with platelet count 268,000. Coagulation studies showed normal PT, PTT and D-dimer. Chemistries showed normal sodium and potassium. Chloride was low at 80 but carbon dioxide was elevated at 49. Anion gap normal at 17, BUN 17, creatinine 0.6, glucose 117. Lactic acid on admission was 0.6. Magnesium was low at 1.6. Liver functions were all within normal limits. ABGs showed pH 7.31, pCO2 was 118, pO2 was 65, bicarb 57.8, base excess 27.9 with O2 saturation of 92% on high flow nasal cannula. Urinalysis showed to be within normal limits. MICROBIOLOGY: Blood cultures are pending. Sputum culture is pending. Influenza types A and B by PCR were negative. RADIOLOGY: Initially chest x-ray in the E. R. per radiology interpretation showed increased right basilar airspace consolidation and right pleural effusion compared to 01/01/19. He did have a CT of the chest with contrast and per radiology interpretation it was noted there was an airspace consolidation in the right lower lung with compressed lung not able to be assessed accurately. There was note that the large spiculated mass previously noted on last CT has either been removed or not seen. There was note of a small right pleural effusion. ASSESSMENT: 1. Hypercapnic hypoxic respiratory distress secondary to right lower lobe pneumonia. 2. Acte exacerbation of chronic obstructive pulmonary disease secondary to #1. 3. Hypertension showing to be stable. 4. Type 2 diabetes mellitus, non-insulin dependent. 5. Electrolyte imbalance to include hypomagnesemia. 6. History of benign prostatic hypertrophy on Flomax. 7. Anemia with a normocytic hypochromic presentation likely due to chronic illness from chronic chronic obstructive pulmonary disease and advanced emphysema with a past history of iron-deficiency anemia having been on iron therapy. PLAN: Mr. Matos is going to be admitted to the Medical/Surgical floor for acute exacerbation of COPD with a hypercapnic hypoxic respiratory distress due to right lower lobe pneumonia. Given that he was in the hospital within the last 30 days and treated with Rocephin and azithromycin, will treat this aggressively with triple coverage with coverage for MRSA with vancomycin and Pseudomonas coverage and Strep with Cefepime, and also Levaquin for additional Pseudomonal coverage awaiting culture results of sputum. Given the fact that he was having some shortness of breath and wheezing, will go ahead and start him on some Solu-Medrol with 125 mg initially. Will follow this up with 60 every 6 hours for 3 doses. Given the findings of his respiratory acidosis with hypercapnic presentation, will go ahead and put him on some BiPAP to help compensate for the hypercapnia and hopefully for lung improvement as tolerated. Will go ahead and start him on insulin sliding scale per protocol and monitor his blood sugars closely as he is going to be on steroids. He will be on DVT prophylaxis with Lovenox. I have gone ahead and replaced his magnesium 2 grams. Will recheck that in the morning. Will also recheck labs in the morning. At this point he does not appear to be dehydrated. Will hold off on any fluids. A review of his medical records from last hospitalization did show that he had an echocardiogram done at that time with a preserved left ventricular function with an ejection fraction of 55%. Will review his medications and resume those as appropriate to care once those have been updated and verified. Will have him on aggressive pulmonary hygiene with DuoNeb treatments q.i.d. as well as chest percussive therapy. I would anticipate, given his co-morbidities and age, that his length of stay will be probably anywhere from 3 to 5 days. Until we can transition to oral medications and back to outpatient management will continue to monitor and treat as needed. [facility][id number] [facility]
[2019-01-30] MEDS ORDERED: ONDANSETRON INJ 4 MG/2 ML VIAL IV PRN (12:47)
[2019-01-30] MEDS ORDERED: DEXTROSE 50% 25 GM/50 ML SYG IV PRN (12:51)
[2019-01-30] MEDS ORDERED: GLUCAGON INJ 1 MG VIAL SUBCU PRN (12:51)
[2019-01-30] MEDS ORDERED: VANCOMYCIN PER PHARMACY IVPB SCH (13:00)
[2019-01-30] MEDS ORDERED: levoFLOXacin 750MG IV 750 MG in PREMIX BAG 1 BAG IVPB SCH (13:00)
[2019-01-30] MEDS ORDERED: MAGNESIUM SULFATE PREMIX 2GM 50 ML IVPB ONE (13:30)
[2019-01-30] MEDS: IV SET AND CAP CHANGE INJ INJ SCH (13:36)
[2019-01-30] MEDS: ENOXAPARIN SODIUM 40 MG/0.4 ML SYG SUBCU SCH (13:44)
[2019-01-30] MEDS ORDERED: VANCOMYCIN HCL INJ 1,000 MG, VANCOMYCIN HCL INJ 250 MG in SODIUM CHLORIDE 0.9% 250ML 25... IVPB SCH (14:00)
[2019-01-30] MEDS ORDERED: methylPREDNISolone SODIUM SUC 125 MG/2 ML VIAL IV ONE (14:18)
[2019-01-30] MEDS: levoFLOXacin 750MG IV 750 MG in PREMIX BAG 1 BAG IVPB SCH (14:37)
--- NOTE | 2019-01-30 15:22 | CT ---
EXAM: CT Chest With Intravenous Contrast CLINICAL HISTORY: RLL pneumonia with Hx of possible malignancy TECHNIQUE: Axial computed tomography images of the chest with intravenous contrast. Sagittal and coronal reformatted images were created and reviewed. This CT exam was performed using one or more of the following dose reduction techniques: automated exposure control, adjustment of the mA and/or kV according to patient size, and/or use of iterative reconstruction technique. COMPARISON: 01/27/2018. FINDINGS: Limitations: None. Lungs: The dependent right lung is consolidated. Large spiculated mass previously identified is not seen. Pleural space: There is a small layering right pleural effusion. No pneumothorax. Heart: Unremarkable. No cardiomegaly. No significant pericardial effusion. Bones/joints: Old bilateral rib fractures present. No dislocation. Soft tissues: Unremarkable. Vasculature: Unremarkable. No thoracic aortic aneurysm. Lymph nodes: Unremarkable. No enlarged lymph nodes. Gallbladder and bile ducts: Multiple gallstones present. Kidneys and ureters: Partially imaged cyst left kidney. IMPRESSION: 1. There is airspace consolidation of the lower right lung. Character of the underlying compressed lung is not assessed accurately. Large spiculated mass previously noted in the right base may have been removed and is not seen. 2. Small right pleural effusion. Electronically signed by: Alondra Snow MD 01/30/2019 3:20 PM CDT
[2019-01-30] MEDS: IPRATROPIUM/ALBUTEROL 3 ML VIAL NEB SCH ×2 (15:55→20:15)
[2019-01-30] MEDS ORDERED: VANCOMYCIN HCL INJ 500 MG VIAL ONE ×2 (16:27→19:07)
[2019-01-30] MEDS ORDERED: SODIUM CHLORIDE 0.9% 250ML 250 ML ONE ×2 (16:28→19:07)
[2019-01-30] MEDS ORDERED: VANCOMYCIN HCL INJ 1,000 MG VIAL IVPB ONE ×2 (16:28→19:09)
[2019-01-30] MEDS: INSULIN LISPRO 100 UNITS/ML PEN SUBCU SCH ×2 (16:32→21:02)
[2019-01-30] MEDS: VANCOMYCIN HCL INJ 1,000 MG, VANCOMYCIN HCL INJ 250 MG in SODIUM CHLORIDE 0.9% 250ML 25... IVPB SCH ×2 (16:34→23:39)
[2019-01-30] MEDS ORDERED: SIMVASTATIN 10 MG TAB PO ONE (19:07)
[2019-01-30] MEDS ORDERED: FUROSEMIDE 40 MG TAB ONE (19:07)
[2019-01-30] MEDS ORDERED: METOPROLOL TARTRATE 25 MG TAB ONE (19:07)
[2019-01-30] MEDS ORDERED: diltiaZEM HCL TAB 30 MG TAB ONE (19:08)
[2019-01-30] MEDS ORDERED: TEMAZEPAM 15 MG CAP ONE (19:08)
[2019-01-30] MEDS ORDERED: SODIUM CHLORIDE 0.9% 50ML 50 ML ONE (19:09)
[2019-01-30] MEDS ORDERED: PANTOPRAZOLE SODIUM IV 40 MG VIAL ONE (19:09)
[2019-01-30] MEDS: BUDESONIDE NEBS 0.5 MG/2 ML INH NEB SCH (20:15)
[2019-01-30] MEDS: TAMSULOSIN 0.4 MG CAP PO SCH (20:42)
[2019-01-30] MEDS: SODIUM CHLORIDE 0.9% (FLUSH) 10 ML SYG IV SCH (20:43)
[2019-01-30] MEDS: METOPROLOL TARTRATE 50 MG TAB PO SCH (20:44)
[2019-01-30] MEDS: methylPREDNISolone SODIUM SUC 125 MG/2 ML VIAL IV SCH ×2 (20:45→23:06)
[2019-01-30] MEDS: SIMVASTATIN 20 MG TAB PO SCH (20:45)
[2019-01-30] MEDS ORDERED: DILTIAZEM HCL 60 MG PO SCH (21:00)
[2019-01-30] MEDS ORDERED: NON-FORMULARY MEDICATION 1 EA MIS (Temazepam [Restoril] 30 MG) PO SCH (21:00)
[2019-01-30] MEDS ORDERED: FUROSEMIDE 40 MG TAB PO SCH (21:00)
[2019-01-30] MEDS ORDERED: CEFEPIME 1 GM in SODIUM CHLORIDE 0.9% 50ML 50 ML IVPB SCH (23:30)
[2019-01-31] MEDS: ALBUTEROL SULFATE 2.5 MG/3 ML VIAL NEB PRN (00:20)
[2019-01-31] MEDS: methylPREDNISolone SODIUM SUC 125 MG/2 ML VIAL IV SCH (05:39)
[2019-01-31] MEDS: PANTOPRAZOLE SODIUM IV 40 MG VIAL IV SCH (05:40)
[2019-01-31] MEDS: INSULIN LISPRO 100 UNITS/ML PEN SUBCU SCH ×7 (07:13→20:36)
[2019-01-31] MEDS ORDERED: SODIUM CHLORIDE 0.9% 250ML 0 ML ONE (07:26)
[2019-01-31] MEDS ORDERED: VANCOMYCIN HCL INJ 500 MG VIAL ONE (07:26)
[2019-01-31] MEDS ORDERED: diltiaZEM HCL TAB 30 MG TAB ONE (07:27)
[2019-01-31] MEDS ORDERED: METOPROLOL SUCCINATE XL 25 MG TAB PO ONE (07:28)
[2019-01-31] MEDS ORDERED: VANCOMYCIN HCL INJ 1,000 MG VIAL IVPB ONE ×3 (07:28→19:00)
[2019-01-31] MEDS: BUDESONIDE NEBS 0.5 MG/2 ML INH NEB SCH ×2 (08:15→20:18)
[2019-01-31] MEDS: IPRATROPIUM/ALBUTEROL 3 ML VIAL NEB SCH ×4 (08:15→20:18)
[2019-01-31] MEDS ORDERED: SODIUM CHLORIDE 0.9% 500ML 500 ML ONE ×2 (08:46→18:59)
[2019-01-31] MEDS: VANCOMYCIN HCL INJ 1,750 MG in SODIUM CHLORIDE 0.9% 500ML 500 ML IVPB SCH ×2 (08:52→20:30)
[2019-01-31] MEDS: ENOXAPARIN SODIUM 40 MG/0.4 ML SYG SUBCU SCH (08:54)
[2019-01-31] MEDS: BISACODYL TAB 5 MG TAB PO SCH (08:55)
[2019-01-31] MEDS: diltiaZEM HCL TAB 30 MG TAB PO SCH ×3 (08:55→20:27)
[2019-01-31] MEDS: FUROSEMIDE 40 MG TAB PO SCH ×2 (08:55→17:41)
[2019-01-31] MEDS: METOPROLOL TARTRATE 50 MG TAB PO SCH ×2 (08:57→20:27)
[2019-01-31] MEDS: POLYETHYLENE GLYCOL 3350 17 GM PCKT PO SCH (08:59)
[2019-01-31] MEDS: SODIUM CHLORIDE 0.9% (FLUSH) 10 ML SYG IV SCH ×2 (08:59→20:29)
[2019-01-31] MEDS: VANCOMYCIN HCL INJ 1,000 MG, VANCOMYCIN HCL INJ 250 MG in SODIUM CHLORIDE 0.9% 250ML 25... IVPB SCH (09:33)
--- NOTE | 2019-01-31 10:28 | RAD ---
EXAM DESCRIPTION: Chest,2 Views CLINICAL HISTORY: 73 years Male, Pneumonia COMPARISON: 01/30/2019 IMPRESSION: The heart remains enlarged, with central pulmonary vascular congestion. Large right basilar airspace consolidation with moderate right pleural effusion again demonstrated. The lungs are hyperexpanded with diffusely coarsened interstitial markings. The findings are not significant changed. No pneumothorax. No acute osseous abnormality. Electronically signed by: Antoni Stein MD 01/31/2019 10:27 AM CDT
[2019-01-31] MEDS: methylPREDNISolone SODIUM SUC 40 MG/ML VIAL IV SCH ×2 (12:06→17:41)
[2019-01-31] MEDS ORDERED: SODIUM CHLORIDE 0.9% 50ML 50 ML ONE ×2 (12:31→19:00)
[2019-01-31] MEDS ORDERED: CEFEPIME 2 GM VIAL ONE ×2 (12:31→18:59)
[2019-01-31] MEDS: CEFEPIME 1 GM in SODIUM CHLORIDE 0.9% 50ML 50 ML IVPB SCH (13:08)
--- NOTE | 2019-01-31 13:44 | PN ---
SUPERVISING PHYSICIAN: Carmine Figueroa MD DATE: 01/31/19 SUBJECTIVE: The patient is feeling a little bit better today. He has been utilizing BiPAP and seems to be tolerating it well. He does desaturate fairly quickly when he comes off of it. He is still coughing up quite a bit of sputum. He has been afebrile. He has had no nausea, vomiting, diarrhea, constipation or any chest pain. OBJECTIVE: VITAL SIGNS: Temperature 981. Pulse 117. Blood pressure 146/68. Rectal polyp 22. Saturation 92% on nasal cannula at 5 liters. I&Os show a positive balance. Weight is 99.3 kg. GENERAL: The patient is sitting on the edge of the bed having just come off BiPAP. He appears to be in no acute distress. He is alert. CHEST: Lung sounds are still significantly diminished throughout with some notable rhonchi heard to the lower right lung field. No wheezing noted today. HEART: Regular rate and rhythm, but tachycardic on bedside monitor. ABDOMEN: Obese, but soft and nontender. Positive bowel sounds. EXTREMITIES: No edema. NEUROLOGIC: Alert and oriented times three. LABORATORY: White count 7,400, hemoglobin down to 8.7, hematocrit 29.0, platelet count 261,000. Differential does continue show a left shift. Chemistries show anion gap 19, carbon dioxide 44, chloride 82. Blood sugars have been between 142 and 242. Calcium 9.1. MICROBIOLOGY: Sputum culture is pending. Blood cultures remain negative at 24 hours. RADIOLOGY: Repeat chest x-ray this morning, two-view, per radiologic interpretation shows heart remains enlarged with central pulmonary vascular congestion. There is a large right basilar airspace consolidation and moderate right pleural effusion again demonstrated. Lungs were hyperexpanded with diffusely coarsened interstitial markings. No pneumothorax was noted. ASSESSMENT: 1. Hypercapnic hypoxic respiratory distress secondary to right lower lobe pneumonia with the patient now on BiPAP and show slowing response with triple antibiotic coverage with Levaquin, cefepime and vancomycin. 2. Acte exacerbation of chronic obstructive pulmonary disease secondary to #1. 3. Hypertension showing to be stable. 4. Type 2 diabetes mellitus, non-insulin dependent. 5. Electrolyte imbalance to include hypomagnesemia, returning to baseline levels with replacement. 6. History of benign prostatic hypertrophy on Flomax. 7. Anemia with a normocytic hypochromic presentation likely due to chronic illness from chronic chronic obstructive pulmonary disease and advanced emphysema with a past history of iron-deficiency anemia having been on iron therapy. PLAN: We will continue with triple antibiotic coverage with vancomycin, cefepime and Levaquin. He is doing well with his pulmonary hygiene therapy. We got a sputum collected and we will await those results as well as his blood cultures. He will continue to utilize BiPAP p.r.n. as needed and we will titrate down to nasal cannula as tolerated. I hope to be able to titrate him off of his antibiotics down to monotherapy over the next 24 to 48 hours. I anticipate discharging by Thursday. Until the patient can transition to outpatient management, we will continue to monitor and treat as needed. #[id number] [facility]
[2019-01-31] MEDS: levoFLOXacin 750MG IV 750 MG in PREMIX BAG 1 BAG IVPB SCH (13:51)
[2019-01-31] MEDS ORDERED: TEMAZEPAM 15 MG CAP ONE (19:00)
[2019-01-31] MEDS: TEMAZEPAM 15 MG CAP PO SCH (20:28)
[2019-01-31] MEDS: SIMVASTATIN 20 MG TAB PO SCH (20:28)
[2019-01-31] MEDS: TAMSULOSIN 0.4 MG CAP PO SCH (20:28)
[2019-02-01] MEDS: ALBUTEROL SULFATE 2.5 MG/3 ML VIAL NEB PRN (00:03)
[2019-02-01] MEDS: methylPREDNISolone SODIUM SUC 40 MG/ML VIAL IV SCH ×3 (00:23→20:34)
[2019-02-01] MEDS: SODIUM CHLORIDE 0.9% (FLUSH) 10 ML SYG IV PRN ×2 (00:23→06:04)
[2019-02-01] MEDS: CEFEPIME 1 GM in SODIUM CHLORIDE 0.9% 50ML 50 ML IVPB SCH ×2 (00:23→12:50)
[2019-02-01] MEDS: PANTOPRAZOLE SODIUM IV 40 MG VIAL IV SCH (06:02)
[2019-02-01] MEDS: INSULIN LISPRO 100 UNITS/ML PEN SUBCU SCH ×7 (07:09→20:59)
[2019-02-01] MEDS: METOPROLOL TARTRATE 50 MG TAB PO SCH ×2 (08:18→20:04)
[2019-02-01] MEDS: diltiaZEM HCL TAB 30 MG TAB PO SCH ×3 (08:18→20:04)
[2019-02-01] MEDS: BISACODYL TAB 5 MG TAB PO SCH (08:18)
[2019-02-01] MEDS: FUROSEMIDE 40 MG TAB PO SCH ×2 (08:19→17:10)
[2019-02-01] MEDS: POLYETHYLENE GLYCOL 3350 17 GM PCKT PO SCH (08:19)
[2019-02-01] MEDS: ENOXAPARIN SODIUM 40 MG/0.4 ML SYG SUBCU SCH (08:20)
[2019-02-01] MEDS: SODIUM CHLORIDE 0.9% (FLUSH) 10 ML SYG IV SCH ×2 (08:21→20:05)
[2019-02-01] MEDS: BUDESONIDE NEBS 0.5 MG/2 ML INH NEB SCH ×2 (08:23→19:26)
[2019-02-01] MEDS: IPRATROPIUM/ALBUTEROL 3 ML VIAL NEB SCH (08:23)
[2019-02-01] MEDS: STIOLTO RESPIMAT INH SCH ×2 (09:58→19:26)
[2019-02-01] MEDS ORDERED: SODIUM CHLORIDE 0.9% 250ML 250 ML ONE ×2 (10:03→19:34)
[2019-02-01] MEDS ORDERED: VANCOMYCIN HCL INJ 500 MG VIAL ONE ×2 (10:03→19:34)
[2019-02-01] MEDS ORDERED: VANCOMYCIN HCL INJ 1,000 MG VIAL IVPB ONE (10:04)
[2019-02-01] MEDS: VANCOMYCIN HCL INJ 1,000 MG, VANCOMYCIN HCL INJ 250 MG in SODIUM CHLORIDE 0.9% 250ML 25... IVPB SCH ×2 (10:14→20:43)
[2019-02-01] MEDS: guaiFENesin ER TAB 600 MG TAB PO SCH ×2 (10:15→20:05)
[2019-02-01] MEDS: BIFIDOBACTERIUM INFANTIS 4 MG CAP PO SCH ×2 (10:15→20:04)
--- NOTE | 2019-02-01 10:17 | PN ---
SUPERVISING PHYSICIAN: Carmine Figueroa MD DATE: 02/01/19 SUBJECTIVE: The patient is lying in bed. He says he feels better than he did yesterday. He has had minimal shortness of breath although he continues to cough. There has been no chest pain, nausea or vomiting. He also does have some constipation and he has received some Dulcolax for that. We discussed he could take Milk of Magnesia if he had not had a bowel movement by 6 PM. OBJECTIVE: VITAL SIGNS: Temperature 97.4. Heart rate 102. Blood pressure 136/81. Respiratory rate 21. O2 saturation 92% on 5 liters nasal cannula. RESPIRATORY: Diminished at the bases with a few scattered expiratory wheezes. CARDIAC: Regular rate and rhythm, at times it is slightly tachycardic. GASTROINTESTINAL: Abdomen is soft, slightly distended, nontender. Bowel sounds are positive. NEUROLOGIC: Awake, alert and oriented times three. LABORATORY: WBCs 12,900, hemoglobin 8.4, hematocrit 28.3. He has a left shift on differential. Blood sugars have run between 142 and 201. Sodium 144, potassium 3.9, chloride 87, carbon dioxide 41. Calcium 9. Preliminary blood cultures show no growth at 24 hours. Sputum culture is pending. All other labs and films have been reviewed via the EMR. ASSESSMENT: 1. Hypercapnic hypoxic respiratory distress secondary to right lower lobe pneumonia with the patient now on BiPAP and show slowing response with triple antibiotic coverage with Levaquin, cefepime and vancomycin. 2. Acte exacerbation of chronic obstructive pulmonary disease secondary to #1. 3. Hypertension, stable. 4. Type 2 diabetes mellitus, non-insulin dependent. 5. Electrolyte imbalance to include hypomagnesemia, returning to baseline levels with replacement. 6. History of benign prostatic hypertrophy on Flomax. 7. Anemia with a normocytic hypochromic presentation likely due to chronic illness from chronic chronic obstructive pulmonary disease and advanced emphysema with a past history of iron-deficiency anemia having been on iron therapy. PLAN: We will continue present supportive care. I will hold on labs for in the morning, but repeat his chest x-ray. I have continued to titrate down his Solu- Medrol. Hopefully tomorrow he can be transitioned to oral prednisone. We will also monitor his bowel movements. If he has not had a bowel movement by 6 PM, we will give him some Milk of Magnesia. I have also ordered ambulation to get him up and moving. We will continue to monitor the patient closely and follow as needed. #[id number] [facility]
[2019-02-01] MEDS ORDERED: SODIUM CHLORIDE 0.9% 50ML 50 ML ONE ×2 (12:44→19:36)
[2019-02-01] MEDS ORDERED: CEFEPIME 2 GM VIAL ONE ×2 (12:44→19:35)
[2019-02-01] MEDS: ALBUTEROL SULFATE 2.5 MG/3 ML VIAL NEB SCH ×2 (14:30→19:26)
[2019-02-01] MEDS: levoFLOXacin 750MG IV 750 MG in PREMIX BAG 1 BAG IVPB SCH (14:41)
[2019-02-01] MEDS: ACETAMINOPHEN 325 MG TAB PO PRN (18:37)
[2019-02-01] MEDS ORDERED: SODIUM CHL 0.9% 50ML MIN-BAG+ 50 ML IVPB ONE (19:36)
[2019-02-01] MEDS: TAMSULOSIN 0.4 MG CAP PO SCH (20:04)
[2019-02-01] MEDS: SIMVASTATIN 20 MG TAB PO SCH (20:05)
[2019-02-01] MEDS: TEMAZEPAM 15 MG CAP PO SCH (20:05)
[2019-02-02] MEDS: CEFEPIME 1 GM in SODIUM CHLORIDE 0.9% 50ML 50 ML IVPB SCH ×2 (01:10→12:41)
[2019-02-02] MEDS: PANTOPRAZOLE SODIUM IV 40 MG VIAL IV SCH (06:00)
[2019-02-02] MEDS: INSULIN LISPRO 100 UNITS/ML PEN SUBCU SCH ×7 (07:11→20:52)
--- NOTE | 2019-02-02 07:26 | RAD ---
EXAM: XR Abdomen, 2 Views CLINICAL HISTORY: constipated TECHNIQUE: Frontal view of the abdomen/pelvis with upright view of the abdomen. COMPARISON: No relevant prior studies available. FINDINGS: Limitations: None. Lower thorax: Small right pleural effusion and pleural thickening present. There is associated dependent consolidation in the right base. Intraperitoneal space: No free air. Gastrointestinal tract: There is a moderate amount of formed stool throughout the colon. No obstruction. Bones/joints: Unremarkable. IMPRESSION: 1. Small right pleural effusion and pleural thickening present. There is associated dependent consolidation in the right base. 2. Moderate colonic stool without obstruction. Electronically signed by: Alondra Snow MD 02/02/2019 7:23 AM CDT
--- NOTE | 2019-02-02 07:26 | RAD ---
EXAM: XR Chest, 2 Views CLINICAL HISTORY: pna TECHNIQUE: Frontal and lateral views of the chest. COMPARISON: 01/31/2019. FINDINGS: Limitations: None. Lungs: Chronic obstructive changes present with stable consolidation in the right lung base. Stable diffuse bronchovascular thickening. Pleural space: Stable small right pleural effusion. No pneumothorax. Heart: Unremarkable. No cardiomegaly. Mediastinum: Unremarkable. Bones/joints: Unremarkable. IMPRESSION: Stable abnormalities as above. Electronically signed by: Alondra Snow MD 02/02/2019 7:25 AM CDT
[2019-02-02] MEDS: BUDESONIDE NEBS 0.5 MG/2 ML INH NEB SCH ×2 (08:08→20:07)
[2019-02-02] MEDS: ALBUTEROL SULFATE 2.5 MG/3 ML VIAL NEB SCH ×3 (08:08→20:07)
[2019-02-02] MEDS: STIOLTO RESPIMAT INH SCH ×2 (08:30→21:39)
[2019-02-02] MEDS ORDERED: SODIUM CHLORIDE 0.9% 250ML 250 ML ONE ×2 (09:19→19:40)
[2019-02-02] MEDS ORDERED: VANCOMYCIN HCL INJ 500 MG VIAL ONE ×2 (09:19→19:40)
[2019-02-02] MEDS ORDERED: CEFEPIME 2 GM VIAL ONE ×2 (09:20→19:41)
[2019-02-02] MEDS ORDERED: VANCOMYCIN HCL INJ 1,000 MG VIAL IVPB ONE ×2 (09:20→19:42)
[2019-02-02] MEDS ORDERED: SODIUM CHLORIDE 0.9% 50ML 50 ML ONE (09:20)
[2019-02-02] MEDS: BIFIDOBACTERIUM INFANTIS 4 MG CAP PO SCH ×2 (09:48→20:39)
[2019-02-02] MEDS: METOPROLOL TARTRATE 50 MG TAB PO SCH ×2 (09:48→20:39)
[2019-02-02] MEDS: diltiaZEM HCL TAB 30 MG TAB PO SCH ×3 (09:49→20:38)
[2019-02-02] MEDS: guaiFENesin ER TAB 600 MG TAB PO SCH ×2 (09:49→20:39)
[2019-02-02] MEDS: methylPREDNISolone SODIUM SUC 40 MG/ML VIAL IV SCH ×2 (09:49→20:41)
[2019-02-02] MEDS: BISACODYL TAB 5 MG TAB PO SCH (09:49)
[2019-02-02] MEDS: FUROSEMIDE 40 MG TAB PO SCH ×2 (09:49→16:38)
[2019-02-02] MEDS: ENOXAPARIN SODIUM 40 MG/0.4 ML SYG SUBCU SCH (09:49)
[2019-02-02] MEDS: VANCOMYCIN HCL INJ 1,000 MG, VANCOMYCIN HCL INJ 250 MG in SODIUM CHLORIDE 0.9% 250ML 25... IVPB SCH ×2 (09:50→20:37)
[2019-02-02] MEDS: POLYETHYLENE GLYCOL 3350 17 GM PCKT PO SCH (09:50)
[2019-02-02] MEDS: SODIUM CHLORIDE 0.9% (FLUSH) 10 ML SYG IV SCH ×2 (09:50→20:38)
--- NOTE | 2019-02-02 11:31 | PN ---
SUPERVISING PHYSICIAN: Carmine Figueroa MD DATE: 02/02/19 SUBJECTIVE: The patient is sitting up in bed. He is feeling much better. He still has some shortness of breath, but no chest pain or nausea. He still has not had a bowel movement and we will give him an additional dose of Milk of Magnesia today if he does not have one today. OBJECTIVE: VITAL SIGNS: Temperature 98.5. Heart rate 67. Blood pressure 131/75. Respiratory rate 20. O2 saturation 96% on 5 liters nasal cannula. RESPIRATORY: Diminished at the bases with distant breath sounds throughout, a few scattered rhonchi, but no expiratory wheezing. CARDIAC: Regular rate and rhythm. GASTROINTESTINAL: Abdomen is soft, nondistended, nontender. Bowel sounds are positive. NEUROLOGIC: Awake, alert and oriented times three. LABORATORY: Blood sugars have run between 115 and 180. Sputum culture is pending. Preliminary blood cultures show no growth after 48 hours. Chest x-ray shows stable abnormalities with chronic obstructive changes and a consolidation in the right lung base. Abdominal shows 1) Small right pleural effusion and pleural thickening present. There is associated dependent consolidation in the right base. 2) Moderate colonic stool without obstruction. All other labs and films have been reviewed via the EMR. ASSESSMENT: 1. Hypercapnic hypoxic respiratory distress secondary to right lower lobe pneumonia with the patient now on BiPAP and show slowing response with triple antibiotic coverage with Levaquin, cefepime and vancomycin. 2. Acte exacerbation of chronic obstructive pulmonary disease secondary to #1. 3. Hypertension, stable. 4. Type 2 diabetes mellitus, non-insulin dependent. 5. Electrolyte imbalance to include hypomagnesemia, returning to baseline levels with replacement. 6. History of benign prostatic hypertrophy on Flomax. 7. Anemia with a normocytic hypochromic presentation likely due to chronic illness from chronic chronic obstructive pulmonary disease and advanced emphysema with a past history of iron-deficiency anemia having been on iron therapy. 8. Colonic constipation with chronic constipation history requiring laxatives. PLAN: We will continue present supportive care. We are awaiting his sputum culture to decelerate antibiotic coverage. I will repeat his labs in the morning. His Solu-Medrol has been further titrated down. He will start on p.o. prednisone tomorrow. Due to his re-admission and poor respiratory status, I will speak to his family tomorrow about going to [facility] for pulmonary rehab, especially given his chronic obstructive pulmonary disease as well as poor lung compliance and needing a CPAP/BiPAP at night. Hopefully, we can discharge him tomorrow or the next day and hopefully can go to [facility] at that time for further rehab. #[id number] [facility]
[2019-02-02] MEDS: IV SET AND CAP CHANGE INJ INJ SCH (12:42)
[2019-02-02] MEDS: levoFLOXacin 750MG IV 750 MG in PREMIX BAG 1 BAG IVPB SCH (14:41)
[2019-02-02] MEDS: MAGNESIUM HYDROXIDE 30 ML UD PO PRN (17:28)
[2019-02-02] MEDS ORDERED: SODIUM CHL 0.9% 50ML MIN-BAG+ 50 ML IVPB ONE (19:43)
[2019-02-02] MEDS: ACETAMINOPHEN 325 MG TAB PO PRN (19:52)
[2019-02-02] MEDS: SIMVASTATIN 20 MG TAB PO SCH (20:38)
[2019-02-02] MEDS: TEMAZEPAM 15 MG CAP PO SCH (20:39)
[2019-02-02] MEDS: TAMSULOSIN 0.4 MG CAP PO SCH (20:39)
[2019-02-03] MEDS: CEFEPIME 1 GM in SODIUM CHLORIDE 0.9% 50ML 50 ML IVPB SCH ×2 (00:30→12:45)
[2019-02-03] MEDS: ALBUTEROL SULFATE 2.5 MG/3 ML VIAL NEB PRN (04:49)
[2019-02-03] MEDS: PANTOPRAZOLE SODIUM IV 40 MG VIAL IV SCH (06:12)
[2019-02-03] MEDS: INSULIN LISPRO 100 UNITS/ML PEN SUBCU SCH ×7 (07:25→20:57)
[2019-02-03] MEDS ORDERED: SODIUM CHLORIDE 0.9% 250ML 250 ML ONE ×2 (07:58→18:56)
[2019-02-03] MEDS ORDERED: VANCOMYCIN HCL INJ 500 MG VIAL ONE ×2 (07:58→18:56)
[2019-02-03] MEDS ORDERED: VANCOMYCIN HCL INJ 1,000 MG VIAL IVPB ONE ×2 (08:00→18:58)
[2019-02-03] MEDS: ALBUTEROL SULFATE 2.5 MG/3 ML VIAL NEB SCH ×3 (08:55→19:47)
[2019-02-03] MEDS: BUDESONIDE NEBS 0.5 MG/2 ML INH NEB SCH ×2 (08:55→19:47)
[2019-02-03] MEDS: STIOLTO RESPIMAT INH SCH ×2 (08:55→19:47)
[2019-02-03] MEDS: POLYETHYLENE GLYCOL 3350 17 GM PCKT PO SCH (10:01)
[2019-02-03] MEDS: METOPROLOL TARTRATE 50 MG TAB PO SCH ×2 (10:01→20:56)
[2019-02-03] MEDS: FUROSEMIDE 40 MG TAB PO SCH ×2 (10:01→17:04)
[2019-02-03] MEDS: predniSONE 20 MG TAB PO SCH (10:01)
[2019-02-03] MEDS: guaiFENesin ER TAB 600 MG TAB PO SCH ×2 (10:01→20:55)
[2019-02-03] MEDS: BIFIDOBACTERIUM INFANTIS 4 MG CAP PO SCH ×2 (10:01→20:56)
[2019-02-03] MEDS: diltiaZEM HCL TAB 30 MG TAB PO SCH ×3 (10:02→20:55)
[2019-02-03] MEDS: MAGNESIUM HYDROXIDE 30 ML UD PO SCH ×2 (10:02→14:47)
[2019-02-03] MEDS: ENOXAPARIN SODIUM 40 MG/0.4 ML SYG SUBCU SCH (10:02)
[2019-02-03] MEDS: BISACODYL TAB 5 MG TAB PO SCH (10:02)
[2019-02-03] MEDS: VANCOMYCIN HCL INJ 1,000 MG, VANCOMYCIN HCL INJ 250 MG in SODIUM CHLORIDE 0.9% 250ML 25... IVPB SCH ×2 (10:02→20:59)
[2019-02-03] MEDS: SODIUM CHLORIDE 0.9% (FLUSH) 10 ML SYG IV SCH ×2 (10:54→20:57)
--- NOTE | 2019-02-03 11:28 | PN ---
SUPERVISING PHYSICIAN: Carmine Figueroa MD DATE: 02/03/19 SUBJECTIVE: The patient is sitting up on the side of the bed. He continues to have some abdominal breathing, but says he is feeling much better. He has much less shortness of breath. He denies chest pain, nausea or vomiting. He continues complaints of constipation. He does continue to have to use his BiPAP at night. OBJECTIVE: VITAL SIGNS: Temperature 98.1. Heart rate 84. Blood pressure 139/78. Respiratory rate 22. It has been as high as 27. O2 saturation 97% on 3 liters nasal cannula. He does require BiPAP at night. RESPIRATORY: Diminished breath sounds throughout. No expiratory wheezing noted. He has some tachypnea with any exertion and he does have increased work of breathing, even at rest. He actually has to speak in short phrases. He requires BiPap at night and is unable to go without oxygen at any time. GASTROINTESTINAL: Abdomen is firm, it is distended. Bowel sounds are positive. NEUROLOGIC: Awake, alert and oriented times three. LABORATORY: WBC 9,600, hemoglobin 8.9, hematocrit 30. Sodium 144, potassium 4.4, chloride 90, carbon dioxide 41, BUN 34, creatinine 0.69, magnesium 2.5, calcium 8.9. Preliminary blood cultures show no growth after 3 days. Sputum culture is pending. All other labs and films have been reviewed via the EMR. ASSESSMENT: 1. Hypercapnic hypoxic respiratory distress secondary to right lower lobe pneumonia with the patient now on BiPAP and show slowing response with triple antibiotic coverage with Levaquin, cefepime and vancomycin. 2. Acte exacerbation of chronic obstructive pulmonary disease secondary to #1. 3. Hypertension, stable. 4. Type 2 diabetes mellitus, non-insulin dependent. 5. Electrolyte imbalance to include hypomagnesemia, returning to baseline levels with replacement. 6. History of benign prostatic hypertrophy on Flomax. 7. Anemia with a normocytic hypochromic presentation likely due to chronic illness from chronic chronic obstructive pulmonary disease and advanced emphysema with a past history of iron-deficiency anemia having been on iron therapy. 8. Colonic constipation with chronic constipation history requiring laxatives. PLAN: We will continue present supportive care. We discussed his going to [facility] for pulmonary rehab. At this point, he feels like will have minimal recovery there and would rather go home and see his family. His code status might be addressed in the next day or so given his poor prognosis. He has been titrated off the IV steroids and this morning he began his oral prednisone. He will most likely need to go home on an increased dose of chronic steroids. He does have [facility] and he has a walker and a wheelchair at home for assistance. He will have to resume his BiPap at home. He becomes severely short of breath with any exertion. A sleep study has been ordered. I have given him a dose of Milk of Magnesia times 2 today, if he does not have a bowel movement by this afternoon, he will need an enema. I will do an abdominal x-ray in the morning. Most likely, we will discharge tomorrow or the next day after exploring his oxygen options as well as his clinical response and his sputum culture results. #[id number] [facility]
[2019-02-03] MEDS ORDERED: SODIUM CHLORIDE 0.9% 50ML 50 ML ONE ×2 (12:42→18:58)
[2019-02-03] MEDS ORDERED: CEFEPIME 2 GM VIAL ONE ×2 (12:42→18:57)
[2019-02-03] MEDS: levoFLOXacin 750MG IV 750 MG in PREMIX BAG 1 BAG IVPB SCH (14:47)
[2019-02-03] MEDS: TAMSULOSIN 0.4 MG CAP PO SCH (20:55)
[2019-02-03] MEDS: TEMAZEPAM 15 MG CAP PO SCH (20:55)
[2019-02-03] MEDS: SIMVASTATIN 20 MG TAB PO SCH (20:56)
[2019-02-04] MEDS: CEFEPIME 1 GM in SODIUM CHLORIDE 0.9% 50ML 50 ML IVPB SCH ×2 (01:02→13:23)
[2019-02-04] MEDS: ALBUTEROL SULFATE 2.5 MG/3 ML VIAL NEB PRN (04:53)
[2019-02-04] MEDS: ACETAMINOPHEN 325 MG TAB PO PRN ×2 (05:58→13:23)
[2019-02-04] MEDS: PANTOPRAZOLE SODIUM IV 40 MG VIAL IV SCH (06:17)
[2019-02-04] MEDS: INSULIN LISPRO 100 UNITS/ML PEN SUBCU SCH ×7 (07:37→20:54)
[2019-02-04] MEDS: STIOLTO RESPIMAT INH SCH ×2 (08:11→20:51)
[2019-02-04] MEDS: BUDESONIDE NEBS 0.5 MG/2 ML INH NEB SCH ×2 (08:11→20:05)
[2019-02-04] MEDS: ALBUTEROL SULFATE 2.5 MG/3 ML VIAL NEB SCH ×3 (08:11→20:05)
[2019-02-04] MEDS ORDERED: VANCOMYCIN HCL INJ 500 MG VIAL ONE (08:12)
[2019-02-04] MEDS ORDERED: SODIUM CHLORIDE 0.9% 250ML 250 ML ONE (08:13)
[2019-02-04] MEDS ORDERED: VANCOMYCIN HCL INJ 1,000 MG VIAL IVPB ONE (08:14)
[2019-02-04] MEDS: predniSONE 20 MG TAB PO SCH (08:53)
[2019-02-04] MEDS: METOPROLOL TARTRATE 50 MG TAB PO SCH ×2 (08:53→20:31)
[2019-02-04] MEDS: BISACODYL TAB 5 MG TAB PO SCH (08:53)
[2019-02-04] MEDS: BIFIDOBACTERIUM INFANTIS 4 MG CAP PO SCH ×2 (08:53→20:31)
[2019-02-04] MEDS: FUROSEMIDE 40 MG TAB PO SCH ×2 (08:54→16:35)
[2019-02-04] MEDS: POLYETHYLENE GLYCOL 3350 17 GM PCKT PO SCH (08:54)
[2019-02-04] MEDS: diltiaZEM HCL TAB 30 MG TAB PO SCH ×3 (08:54→20:31)
[2019-02-04] MEDS: guaiFENesin ER TAB 600 MG TAB PO SCH ×2 (08:54→20:31)
[2019-02-04] MEDS: ENOXAPARIN SODIUM 40 MG/0.4 ML SYG SUBCU SCH (08:54)
[2019-02-04] MEDS: SODIUM CHLORIDE 0.9% (FLUSH) 10 ML SYG IV SCH ×2 (08:54→20:32)
[2019-02-04] MEDS: VANCOMYCIN HCL INJ 1,000 MG, VANCOMYCIN HCL INJ 250 MG in SODIUM CHLORIDE 0.9% 250ML 25... IVPB SCH (08:55)
[2019-02-04] MEDS ORDERED: CEFEPIME 2 GM VIAL ONE ×2 (13:17→19:08)
[2019-02-04] MEDS ORDERED: SODIUM CHLORIDE 0.9% 50ML 50 ML ONE ×2 (13:17→19:09)
[2019-02-04] MEDS: levoFLOXacin 750MG IV 750 MG in PREMIX BAG 1 BAG IVPB SCH (15:25)
--- NOTE | 2019-02-04 17:28 | PN ---
SUPERVISING PHYSICIAN: Carmine Figueroa MD DATE: 02/04/19 SUBJECTIVE: The patient is sitting up on his bed. He still feels quite weak with shortness of breath. He is still utilizing his BiPAP at night and has to have oxygen during the day. He will need BiPAP when he is discharged. He does seem to be weak and short of breath with exertion but otherwise he feels he is slightly improving. We did discuss a hospice admission at some point due to his multiple comorbidities and his poor prognosis. OBJECTIVE: VITAL SIGNS: Temperature 98.4. Heart rate 89. Blood pressure 135/71. Respiratory rate 22 to 26. O2 saturation 93% on 4 liters nasal cannula. . RESPIRATORY: Diminished breath sounds throughout. CARDIA: Regular rate and rhythm. GASTROINTESTINAL: Abdomen is soft, nondistended, non-tender. Bowel sounds are positive. NEUROLOGIC: Awake, alert and oriented times three. LABORATORY: His blood sugars have run between 108 and 189. Final blood cultures show no growth after 5 days. His final sputum cultures shows moderate mixed respiratory catalino with gram stain with less than 10 epithelial cells and rare WBCs with moderate gram variable cocci bacilli. All other labs and films have been reviewed via the EMR. ASSESSMENT: 1. Hypercapnic hypoxic respiratory distress secondary to right lower lobe pneumonia with the patient now on BiPAP and show slowing response with triple antibiotic coverage with Levaquin, cefepime and vancomycin. 2. Acte exacerbation of chronic obstructive pulmonary disease secondary to #1. 3. Hypertension, stable. 4. Type 2 diabetes mellitus, non-insulin dependent. 5. Electrolyte imbalance to include hypomagnesemia, returning to baseline levels with replacement. 6. History of benign prostatic hypertrophy on Flomax. 7. Anemia with a normocytic hypochromic presentation likely due to chronic illness from chronic chronic obstructive pulmonary disease and advanced emphysema with a past history of iron-deficiency anemia having been on iron therapy. 8. Colonic constipation with chronic constipation history requiring laxatives. He has had a large bowel movement. PLAN: We will continue present supportive care. He will need a new BiPAP when he goes home as his old BiPAP is quite old and he meets requirements for a new one. We have set that up until he gets the new equipment on discharge. Hopefully, it will be available in the morning. He has had a large bowel movement so hopefully he will no longer need any milk of magnesia during this hospital stay. We also discussed having a change in his Code Status as he has multiple comorbidities as well as a poor prognosis. We have also discussed hospice care. Hopefully, he can be discharged tomorrow with close followup. [facility][id number] [facility]
[2019-02-04] MEDS: TAMSULOSIN 0.4 MG CAP PO SCH (20:30)
[2019-02-04] MEDS: TEMAZEPAM 15 MG CAP PO SCH (20:30)
[2019-02-04] MEDS: SIMVASTATIN 20 MG TAB PO SCH (20:31)
[2019-02-05] MEDS: CEFEPIME 1 GM in SODIUM CHLORIDE 0.9% 50ML 50 ML IVPB SCH ×2 (01:01→13:17)
[2019-02-05] MEDS: ACETAMINOPHEN 325 MG TAB PO PRN ×3 (05:37→21:51)
[2019-02-05] MEDS: ALBUTEROL SULFATE 2.5 MG/3 ML VIAL NEB PRN (05:42)
[2019-02-05] MEDS: PANTOPRAZOLE SODIUM IV 40 MG VIAL IV SCH (06:12)
[2019-02-05] MEDS: INSULIN LISPRO 100 UNITS/ML PEN SUBCU SCH ×7 (07:03→20:59)
[2019-02-05] MEDS: ALBUTEROL SULFATE 2.5 MG/3 ML VIAL NEB SCH ×3 (08:51→20:45)
[2019-02-05] MEDS: BUDESONIDE NEBS 0.5 MG/2 ML INH NEB SCH ×2 (08:51→20:45)
[2019-02-05] MEDS: STIOLTO RESPIMAT INH SCH ×2 (08:51→20:45)
[2019-02-05] MEDS: BISACODYL TAB 5 MG TAB PO SCH (09:32)
[2019-02-05] MEDS: POLYETHYLENE GLYCOL 3350 17 GM PCKT PO SCH (09:33)
[2019-02-05] MEDS: METOPROLOL TARTRATE 50 MG TAB PO SCH ×2 (09:33→20:33)
[2019-02-05] MEDS: guaiFENesin ER TAB 600 MG TAB PO SCH ×2 (09:34→20:32)
[2019-02-05] MEDS: diltiaZEM HCL TAB 30 MG TAB PO SCH ×3 (09:34→20:32)
[2019-02-05] MEDS: predniSONE 20 MG TAB PO SCH (09:34)
[2019-02-05] MEDS: BIFIDOBACTERIUM INFANTIS 4 MG CAP PO SCH ×2 (09:34→20:32)
[2019-02-05] MEDS: SODIUM CHLORIDE 0.9% (FLUSH) 10 ML SYG IV SCH ×2 (09:35→20:34)
[2019-02-05] MEDS: FUROSEMIDE 40 MG TAB PO SCH ×2 (09:35→16:36)
[2019-02-05] MEDS: ENOXAPARIN SODIUM 40 MG/0.4 ML SYG SUBCU SCH (09:40)
[2019-02-05] MEDS ORDERED: CEFEPIME 2 GM VIAL ONE ×2 (12:10→19:27)
[2019-02-05] MEDS ORDERED: SODIUM CHLORIDE 0.9% 50ML 50 ML ONE ×2 (12:11→19:28)
[2019-02-05] MEDS: IV SET AND CAP CHANGE INJ INJ SCH (13:18)
[2019-02-05] MEDS: levoFLOXacin 750MG IV 750 MG in PREMIX BAG 1 BAG IVPB SCH (14:00)
[2019-02-05] MEDS: TEMAZEPAM 15 MG CAP PO SCH (20:32)
[2019-02-05] MEDS: TAMSULOSIN 0.4 MG CAP PO SCH (20:32)
[2019-02-05] MEDS: SIMVASTATIN 20 MG TAB PO SCH (20:33)
--- NOTE | 2019-02-05 22:32 | PN ---
DATE: 02/05/19 SUPERVISING PHYSICIAN: Carmine Figueroa M.D. SUBJECTIVE: The patient still remains short of breath even on oxygen. He has been utilizing BiPAP at night. I did discuss that arrangements were being made for the noninvasive ventilation at home on discharge but will not be in place until Thursday. OBJECTIVE: VITAL SIGNS: He remains afebrile, temperature 98.1, pulse 68, blood pressure 120/76, respirations 17, satting 94% on 4 liters nasal cannula. GENERAL: The patient just finished the urinal standing up. Did appear fairly weak but was in no acute distress once returned to bed. CHEST: Lung sounds remain diminished throughout but no wheezing or rhonchi. HEART: Regular rate and rhythm. ABDOMEN: Obese but soft, non-tender. Positive bowel sounds. EXTREMITIES: Alert and oriented times three. LABORATORY: Blood sugars remain stable ranging between 98 and 189. MICROBIOLOGY: Sputum culture came back with normal respiratory catalino. Blood cultures are negative at 5 days. RADIOLOGY: No additional radiographic studies today. ASSESSMENT: 1. Hypercapnic hypoxic respiratory distress due to right lower lobe pneumonia with the patient responding to triple antibiotic coverage with Levaquin, cefepime and vancomycin now on Levaquin and cefepime and oral prednisone anticipating discharge Thursday. 2. Acte exacerbation of chronic obstructive pulmonary disease secondary to #1. 3. Hypertension, stable. 4. Type 2 diabetes mellitus, non-insulin dependent. 5. Electrolyte imbalance to include hypomagnesemia, returning to baseline levels with replacement. 6. History of benign prostatic hypertrophy on Flomax. 7. Anemia with a normocytic hypochromic presentation likely due to chronic illness from chronic chronic obstructive pulmonary disease and advanced emphysema with a past history of iron-deficiency anemia having been on iron therapy. 8. Colonic constipation with chronic constipation history requiring laxatives. He has had a large bowel movement. PLAN: Will continue with antibiotic coverage at this point and BiPAP. I did talk to him that insurance has apparently agreed to pay for his ventilator at home except it will not be ready to place until Thursday. Given his significant respiratory problems it would be advisable not to send him home until those are in place, therefore I anticipate he will go home on Thursday. Until then will continue to monitor and treat as needed. Once he is discharged he will have finished the course of antibiotics including 10 days, therefore should not need additional antibiotics. He will benefit from continued tapering of steroids with oral prednisone over a 10 day course and probably will need to remain on low dose prednisone 5 mg daily. [facility][id number] [facility]
[2019-02-06] MEDS: CEFEPIME 1 GM in SODIUM CHLORIDE 0.9% 50ML 50 ML IVPB SCH ×2 (00:49→13:51)
[2019-02-06] MEDS: ACETAMINOPHEN 325 MG TAB PO PRN ×2 (05:04→14:09)
[2019-02-06] MEDS: PANTOPRAZOLE SODIUM IV 40 MG VIAL IV SCH (06:15)
[2019-02-06] MEDS: INSULIN LISPRO 100 UNITS/ML PEN SUBCU SCH ×7 (07:29→21:51)
[2019-02-06] MEDS: ALBUTEROL SULFATE 2.5 MG/3 ML VIAL NEB SCH ×3 (08:09→20:40)
[2019-02-06] MEDS: STIOLTO RESPIMAT INH SCH ×2 (08:09→20:40)
[2019-02-06] MEDS: BUDESONIDE NEBS 0.5 MG/2 ML INH NEB SCH ×2 (08:09→20:40)
[2019-02-06] MEDS: ENOXAPARIN SODIUM 40 MG/0.4 ML SYG SUBCU SCH (08:50)
[2019-02-06] MEDS: METOPROLOL TARTRATE 50 MG TAB PO SCH ×2 (08:50→20:20)
[2019-02-06] MEDS: BISACODYL TAB 5 MG TAB PO SCH (08:51)
[2019-02-06] MEDS: predniSONE 20 MG TAB PO SCH (08:51)
[2019-02-06] MEDS: diltiaZEM HCL TAB 30 MG TAB PO SCH ×3 (08:51→20:35)
[2019-02-06] MEDS: BIFIDOBACTERIUM INFANTIS 4 MG CAP PO SCH ×2 (08:51→20:19)
[2019-02-06] MEDS: POLYETHYLENE GLYCOL 3350 17 GM PCKT PO SCH (08:51)
[2019-02-06] MEDS: FUROSEMIDE 40 MG TAB PO SCH ×2 (08:52→17:15)
[2019-02-06] MEDS: guaiFENesin ER TAB 600 MG TAB PO SCH ×2 (08:52→20:20)
[2019-02-06] MEDS: SODIUM CHLORIDE 0.9% (FLUSH) 10 ML SYG IV SCH ×2 (08:52→21:30)
[2019-02-06] MEDS ORDERED: SODIUM CHLORIDE 0.9% 50ML 50 ML ONE ×2 (13:44→19:25)
[2019-02-06] MEDS ORDERED: CEFEPIME 2 GM VIAL ONE ×2 (13:44→19:24)
[2019-02-06] MEDS: levoFLOXacin 750MG IV 750 MG in PREMIX BAG 1 BAG IVPB SCH (15:37)
--- NOTE | 2019-02-06 15:46 | PN ---
DATE: 02/06/19 SUPERVISING PHYSICIAN: Carmine Figueroa M.D. SUBJECTIVE: The patient is doing well, just waiting discharge for his equipment at home in the morning. He has no complaints. He has remained stable and he has been afebrile. He did finish his course of antibiotics today and should be able to go home tomorrow without any additional coverage. . OBJECTIVE: VITAL SIGNS: Temperature 97, pulse 98, blood pressure 146/63, respirations 18, satting 93% on 4 liters nasal cannula. GENERAL: He did no appear to be in any acute distress. HEART: Regular rate and rhythm. ABDOMEN: Obese but soft, non-tender. Positive bowel sounds. EXTREMITIES: Alert and oriented times three. LABORATORY: Blood sugars continue to range between 99 and 188. ASSESSMENT: 1. Hypercapnic hypoxic respiratory distress due to right lower lobe pneumonia with the patient responding to triple antibiotic coverage with Levaquin, cefepime and vancomycin now on Levaquin and cefepime and oral prednisone anticipating discharge Thursday. 2. Acte exacerbation of chronic obstructive pulmonary disease secondary to #1. 3. Hypertension, stable. 4. Type 2 diabetes mellitus, non-insulin dependent. 5. Electrolyte imbalance to include hypomagnesemia, returning to baseline levels with replacement. 6. History of benign prostatic hypertrophy on Flomax. 7. Anemia with a normocytic hypochromic presentation likely due to chronic illness from chronic obstructive pulmonary disease and advanced emphysema with a past history of iron-deficiency anemia having been on iron therapy. 8. Colonic constipation with chronic constipation history requiring laxatives. He has had a large bowel movement. PLAN: Will continue current plan of care, anticipating discharge tomorrow. He has arrangements with [facility] to get a noninvasive ventilator system at home. I will probably touch base with April if I do not hear anything about this early in the morning as this is supposed to be arranged and April is the person that started the referral. He should be able to go home without any antibiotics as he has had a full course since he has been here since 01/30. He will need to follow up with his primary care physician, Dr. Hill Ayala. Until we can transition him back home, we will continue to monitor and treat as needed #[id number] [facility]
[2019-02-06] MEDS: SIMVASTATIN 20 MG TAB PO SCH (20:19)
[2019-02-06] MEDS: TAMSULOSIN 0.4 MG CAP PO SCH (20:19)
[2019-02-06] MEDS: TEMAZEPAM 15 MG CAP PO SCH (20:20)
[2019-02-07] MEDS: CEFEPIME 1 GM in SODIUM CHLORIDE 0.9% 50ML 50 ML IVPB SCH ×3 (00:59→13:52)
[2019-02-07] MEDS: ACETAMINOPHEN 325 MG TAB PO PRN (01:30)
[2019-02-07] MEDS: BUDESONIDE NEBS 0.5 MG/2 ML INH NEB SCH ×2 (05:20→08:31)
[2019-02-07] MEDS: PANTOPRAZOLE SODIUM IV 40 MG VIAL IV SCH (06:04)
[2019-02-07] MEDS: INSULIN LISPRO 100 UNITS/ML PEN SUBCU SCH ×7 (07:26→21:07)
[2019-02-07] MEDS: STIOLTO RESPIMAT INH SCH ×2 (08:31→21:00)
[2019-02-07] MEDS: ALBUTEROL SULFATE 2.5 MG/3 ML VIAL NEB SCH ×3 (08:31→21:20)
[2019-02-07] MEDS: POLYETHYLENE GLYCOL 3350 17 GM PCKT PO SCH (08:58)
[2019-02-07] MEDS: ENOXAPARIN SODIUM 40 MG/0.4 ML SYG SUBCU SCH (08:58)
[2019-02-07] MEDS: guaiFENesin ER TAB 600 MG TAB PO SCH ×2 (08:58→20:29)
[2019-02-07] MEDS: FUROSEMIDE 40 MG TAB PO SCH ×2 (08:59→16:30)
[2019-02-07] MEDS: BISACODYL TAB 5 MG TAB PO SCH (08:59)
[2019-02-07] MEDS: METOPROLOL TARTRATE 50 MG TAB PO SCH ×2 (08:59→20:30)
[2019-02-07] MEDS: predniSONE 20 MG TAB PO SCH (08:59)
[2019-02-07] MEDS: BIFIDOBACTERIUM INFANTIS 4 MG CAP PO SCH ×2 (08:59→20:29)
[2019-02-07] MEDS: SODIUM CHLORIDE 0.9% (FLUSH) 10 ML SYG IV SCH ×2 (09:04→20:31)
[2019-02-07] MEDS: diltiaZEM HCL TAB 30 MG TAB PO SCH ×3 (11:39→20:30)
[2019-02-07] MEDS ORDERED: CEFEPIME 2 GM VIAL ONE ×2 (13:54→19:17)
[2019-02-07] MEDS ORDERED: SODIUM CHLORIDE 0.9% 50ML 50 ML ONE ×2 (13:54→19:18)
--- NOTE | 2019-02-07 14:20 | DS ---
SUPERVISING PHYSICIAN: Drew Harris MD ADMISSION DIAGNOSIS: 1. Mixed hypercapnic and hypoxic respiratory failure. 2. Right lower lobe pneumonia. 3. Acute exacerbation of chronic obstructive pulmonary disease. 4. Hypertension. 5. Type 2 diabetes mellitus. 6. Electrolyte imbalance. 7. History of benign prostatic hypertrophy. 8. Anemia. DISCHARGE DIAGNOSIS: 1. Mixed hypercapnic and hypoxic respiratory failure. 2. Right lower lobe pneumonia. 3. Acute exacerbation of chronic obstructive pulmonary disease. 4. Hypertension. 5. Type 2 diabetes mellitus. 6. Electrolyte imbalance. 7. History of benign prostatic hypertrophy. 8. Anemia. 9. Colonic constipation. HISTORY OF PRESENT ILLNESS: This is a 73-year-old male patient who came to the Emergency Room via EMS due to shortness of breath. Apparently he had a productive cough with green sputum over the week prior to admission. His shortness of breath got to the point where he called 911. He was recently discharged from the hospital on 01/01/19 for right lower lobe pneumonia. In the Emergency Room on admission, he was noted to have a normal white count, but did have a left shift. Hemoglobin was 9. He was showing to have acute on chronic respiratory failure with a pH 7.31, pCO2 118, pO2 65 on 5 liters. He was admitted for the above reasons and placed on antibiotics empirically. He has not had any bacteria grow on blood cultures or sputum cultures. He has stepwise improved throughout the admission and has been using a BiPAP. He has been evaluated for a respiratory assist device and reportedly is going to get a Trilogy respiratory assist device. Today, he will be discharged in stable condition with a tapering dose of prednisone. I have updated his medication reconciliation record as well. As soon as the respiratory assist device is set up, he will be discharged home in stable condition to followup with Dr. Ayala as an outpatient. ADDENDUM: The medical csr [employer] is unable to delivery the device today, so he will need to stay in the hospital until it is delivered. Will continue all current orders until able to be discharged safely with device. #[id number] [facility]
[2019-02-07] MEDS: levoFLOXacin 750MG IV 750 MG in PREMIX BAG 1 BAG IVPB SCH (15:21)
[2019-02-07] MEDS: TEMAZEPAM 15 MG CAP PO SCH (20:29)
[2019-02-07] MEDS: SIMVASTATIN 20 MG TAB PO SCH (20:30)
[2019-02-07] MEDS: TAMSULOSIN 0.4 MG CAP PO SCH (20:30)
[2019-02-07] MEDS: GABAPENTIN 300 MG CAP PO SCH (20:34)
[2019-02-08] MEDS: CEFEPIME 1 GM in SODIUM CHLORIDE 0.9% 50ML 50 ML IVPB SCH ×2 (00:13→14:37)
[2019-02-08] MEDS: PANTOPRAZOLE SODIUM IV 40 MG VIAL IV SCH (05:59)
[2019-02-08] MEDS: INSULIN LISPRO 100 UNITS/ML PEN SUBCU SCH ×7 (07:10→21:18)
[2019-02-08] MEDS: ALBUTEROL SULFATE 2.5 MG/3 ML VIAL NEB SCH ×3 (08:40→20:34)
[2019-02-08] MEDS: BUDESONIDE NEBS 0.5 MG/2 ML INH NEB SCH ×2 (08:40→20:35)
[2019-02-08] MEDS: ENOXAPARIN SODIUM 40 MG/0.4 ML SYG SUBCU SCH (08:42)
[2019-02-08] MEDS: POLYETHYLENE GLYCOL 3350 17 GM PCKT PO SCH (08:42)
[2019-02-08] MEDS: BIFIDOBACTERIUM INFANTIS 4 MG CAP PO SCH ×2 (08:42→20:06)
[2019-02-08] MEDS: guaiFENesin ER TAB 600 MG TAB PO SCH ×2 (08:42→20:06)
[2019-02-08] MEDS: METOPROLOL TARTRATE 50 MG TAB PO SCH ×2 (08:42→20:07)
[2019-02-08] MEDS: BISACODYL TAB 5 MG TAB PO SCH (08:42)
[2019-02-08] MEDS: diltiaZEM HCL TAB 30 MG TAB PO SCH ×3 (08:42→20:06)
[2019-02-08] MEDS: SODIUM CHLORIDE 0.9% (FLUSH) 10 ML SYG IV SCH ×2 (08:43→20:09)
[2019-02-08] MEDS: GABAPENTIN 300 MG CAP PO SCH ×3 (08:43→20:07)
[2019-02-08] MEDS: predniSONE 20 MG TAB PO SCH (08:43)
[2019-02-08] MEDS: FUROSEMIDE 40 MG TAB PO SCH ×2 (08:43→17:13)
--- NOTE | 2019-02-08 09:46 | PN ---
SUPERVISING PHYSICIAN: Drew Harris MD DATE: 02/08/19 SUBJECTIVE: The patient has no significant complaints at this time. We are still awaiting discharge to home given his house apparently needs to be prepped for the Trilogy respiratory assist device. OBJECTIVE: VITAL SIGNS: Blood pressure 126/71. Heart rate 104. Respiratory rate 18. Temperature 98.1. Oxygen saturation 97%. GENERAL: Mr. Matos is a 73-year-old male patient who is in no active distress currently. LUNGS: Diminished, but otherwise clear to auscultation bilaterally. CARDIOVASCULAR: Regular rate and rhythm. Normal S1, S2. ABDOMEN: Obese, soft. Positive bowel sounds. NEUROLOGIC: The patient is alert. ASSESSMENT: 1. Mixed hypercarbic and hypercapnic respiratory failure. 2. Right lower lobe pneumonia. 3. Acute exacerbation of chronic obstructive pulmonary disease. 4. Hypertension. 5. Type 2 diabetes mellitus. 6. Electrolyte imbalance. 7. History of benign prostatic hypertrophy. 8. Anemia. 9. Colonic constipation. PLAN: We are still continuing to await his house to be prepped and inspected for the Trilogy respiratory assist device. Otherwise, continuing all current management at this time. #[id number] [facility]
[2019-02-08] MEDS: STIOLTO RESPIMAT INH SCH ×2 (10:13→20:35)
[2019-02-08] MEDS ORDERED: CEFEPIME 2 GM VIAL ONE ×2 (14:24→18:59)
[2019-02-08] MEDS ORDERED: SODIUM CHLORIDE 0.9% 50ML 50 ML ONE ×2 (14:24→19:00)
[2019-02-08] MEDS: IV SET AND CAP CHANGE INJ INJ SCH (14:37)
[2019-02-08] MEDS: TAMSULOSIN 0.4 MG CAP PO SCH (20:07)
[2019-02-08] MEDS: TEMAZEPAM 15 MG CAP PO SCH (20:07)
[2019-02-08] MEDS: SIMVASTATIN 20 MG TAB PO SCH (20:08)
[2019-02-09] MEDS: CEFEPIME 1 GM in SODIUM CHLORIDE 0.9% 50ML 50 ML IVPB SCH (00:35)
[2019-02-09] MEDS: PANTOPRAZOLE SODIUM IV 40 MG VIAL IV SCH (06:03)
[2019-02-09] MEDS: SODIUM CHLORIDE 0.9% (FLUSH) 10 ML SYG IV SCH ×2 (08:17→20:40)
[2019-02-09] MEDS: diltiaZEM HCL TAB 30 MG TAB PO SCH ×3 (08:17→20:39)
[2019-02-09] MEDS: BIFIDOBACTERIUM INFANTIS 4 MG CAP PO SCH ×2 (08:17→20:40)
[2019-02-09] MEDS: METOPROLOL TARTRATE 50 MG TAB PO SCH ×2 (08:17→20:40)
[2019-02-09] MEDS: predniSONE 20 MG TAB PO SCH (08:17)
[2019-02-09] MEDS: BISACODYL TAB 5 MG TAB PO SCH (08:18)
[2019-02-09] MEDS: FUROSEMIDE 40 MG TAB PO SCH ×2 (08:18→15:57)
[2019-02-09] MEDS: guaiFENesin ER TAB 600 MG TAB PO SCH ×2 (08:18→20:39)
[2019-02-09] MEDS: GABAPENTIN 300 MG CAP PO SCH ×3 (08:18→20:40)
[2019-02-09] MEDS: POLYETHYLENE GLYCOL 3350 17 GM PCKT PO SCH (08:18)
[2019-02-09] MEDS: ALBUTEROL SULFATE 2.5 MG/3 ML VIAL NEB SCH ×3 (08:19→20:35)
[2019-02-09] MEDS: STIOLTO RESPIMAT INH SCH ×2 (08:19→20:35)
[2019-02-09] MEDS: BUDESONIDE NEBS 0.5 MG/2 ML INH NEB SCH ×2 (08:19→20:35)
[2019-02-09] MEDS: INSULIN LISPRO 100 UNITS/ML PEN SUBCU SCH ×7 (08:23→21:05)
[2019-02-09] MEDS: MAGNESIUM HYDROXIDE 30 ML UD PO PRN (17:22)
--- NOTE | 2019-02-09 19:50 | PN ---
DATE: 02/09/19 SUPERVISING PHYSICIAN: Drew Harris M.D. SUBJECTIVE: The patient is really ready to go home at this point but we are still awaiting the device to be delivered to his home pending a home inspection by the medical sonographer [facility]. As stated before, I already did a Discharge Summary a couple of days ago, so we are in a holding pattern at this time. OBJECTIVE: VITAL SIGNS: Blood pressure 154/76, heart rate 79, respiratory rate 18, temperature 98.4, oxygen saturation 96%. GENERAL: Mr. Delvalle is in no active distress currently. LUNGS: Diminished but clear to auscultation bilaterally. CARDIOVASCULAR: Regular rate and rhythm. Normal S1 and S2. ABDOMEN: Soft. Positive bowel sounds, obese. EXTREMITIES: Lower extremities with no significant edema, 2+ pulses. Capillary refill less than 2 seconds. ASSESSMENT: 1. Hypercarbic and hypoxemic respiratory failure which has improved. 2. Right lower lobe pneumonia, improved. 3. Exacerbation of chronic obstructive pulmonary disease, improved. 4. Hypertension. 5. Type 2 diabetes mellitus. 6. Electrolyte imbalance, resolved. 7. History of benign prostatic hypertrophy. 8. Anemia. 9. Constipation. PLAN: Basically at this point he is ready to be discharged. We are just waiting on device delivery. I think at this point it would not be safe to send him home without the respiratory assist device, so we will continue to wait and continue all of his other active orders here, including BiPAP at night. #[id number] [facility]
[2019-02-09] MEDS: TEMAZEPAM 15 MG CAP PO SCH (20:40)
[2019-02-09] MEDS: SIMVASTATIN 20 MG TAB PO SCH (20:40)
[2019-02-09] MEDS: TAMSULOSIN 0.4 MG CAP PO SCH (20:40)
[2019-02-10] MEDS: ALBUTEROL SULFATE 2.5 MG/3 ML VIAL NEB PRN (02:34)
[2019-02-10 03:52] VITALS: O2SAT 95
[2019-02-10 05:11] VITALS: TEMP 97.7
[2019-02-10] MEDS: PANTOPRAZOLE SODIUM IV 40 MG VIAL IV SCH (06:05)
[2019-02-10] MEDS: INSULIN LISPRO 100 UNITS/ML PEN SUBCU SCH ×2 (07:47→08:17)
[2019-02-10] MEDS: POLYETHYLENE GLYCOL 3350 17 GM PCKT PO SCH (08:27)
[2019-02-10] MEDS: predniSONE 20 MG TAB PO SCH (08:27)
[2019-02-10] MEDS: BIFIDOBACTERIUM INFANTIS 4 MG CAP PO SCH (08:27)
[2019-02-10] MEDS: BISACODYL TAB 5 MG TAB PO SCH (08:28)
[2019-02-10] MEDS: guaiFENesin ER TAB 600 MG TAB PO SCH (08:28)
[2019-02-10] MEDS: METOPROLOL TARTRATE 50 MG TAB PO SCH (08:28)
[2019-02-10] MEDS: FUROSEMIDE 40 MG TAB PO SCH (08:28)
[2019-02-10] MEDS: diltiaZEM HCL TAB 30 MG TAB PO SCH (08:28)
[2019-02-10] MEDS: STIOLTO RESPIMAT INH SCH (08:34)
[2019-02-10] MEDS: ALBUTEROL SULFATE 2.5 MG/3 ML VIAL NEB SCH (08:35)
[2019-02-10] MEDS: BUDESONIDE NEBS 0.5 MG/2 ML INH NEB SCH (08:35)
[2019-02-10] MEDS: GABAPENTIN 300 MG CAP PO SCH (08:38)
[2019-02-10] MEDS: SODIUM CHLORIDE 0.9% (FLUSH) 10 ML SYG IV SCH (08:38)
[2019-02-10 10:04] VITALS: BP 145/72
--- NOTE | 2019-02-10 14:27 | DS ---
SUPERVISING PHYSICIAN: Drew Harris MD ADMISSION DIAGNOSIS: 1. Hypercapnic hypoxic respiratory distress secondary to right lower lobe pneumonia. 2. Acte exacerbation of chronic obstructive pulmonary disease secondary to #1. 3. Hypertension showing to be stable. 4. Type 2 diabetes mellitus, non-insulin dependent. 5. Electrolyte imbalance to include hypomagnesemia. 6. History of benign prostatic hypertrophy on Flomax. 7. Anemia with a normocytic hypochromic presentation likely due to chronic illness from chronic chronic obstructive pulmonary disease and advanced emphysema with a past history of iron-deficiency anemia having been on iron therapy. DISCHARGE DIAGNOSIS: 1. Hypercarbic and hypoxemic respiratory failure which has improved. 2. Right lower lobe pneumonia, improved. 3. Exacerbation of chronic obstructive pulmonary disease, improved. 4. Hypertension. 5. Type 2 diabetes mellitus. 6. Electrolyte imbalance, resolved. 7. History of benign prostatic hypertrophy. 8. Anemia. 9. Constipation. HISTORY OF PRESENT ILLNESS: Mr. Matos is a 73 year-old male patient who presented to the Emergency Department today via 911 complaining of acute onset of shortness of breath. He reports that he started having a productive cough with some green sputum over the last week that has progressively worsened to the point today that he was short of breath and he was needing to be seen in the E. R. for further evaluation. He was in the hospital recently for treatment of right lower lobe pneumonia. He was discharged on 01/01/19. On that episode he was treated as an outpatient once discharged with Cefdinir and azithromycin. He notes that he did fairly well and was seen in followup with Hill Ayala, his primary care provider, but again in the last week he has slowly had a decline in his respiratory effort resulting in shortness of breath. He does have a history of chronic obstructive pulmonary disease and emphysema. He was denying any chest pains, palpitations, nausea, vomiting or diaphoresis. On initial presentation to the Emergency Department this morning, he was afebrile at 98.4, blood pressure was showing to be at 140/66, respirations 20 to 22 with obvious shortness of breath, satting 97% on nasal cannula at 5 liters. He is chronically O2 dependent at home and he utilizes BiPAP at night. Laboratory studies showed he had a normal white count at 9,700 but did have a left shift. He is chronically anemic on this presentation, hemoglobin was 9, hematocrit 29.9. Blood gas analysis showed that he was in mild respiratory failure with a pH of 7.31 with a hypercapnic presentation of pCO2 of 118, pO2 65 on 5 liters nasal cannula satting 92%. Bicarb was 57.8. Chemistries showed normal renal function with creatinine 0.6. Liver functions are all within normal limits. Again, his CO2 was elevated at 49. Lactic acid was 0.6. Chest x-ray initially in the E. R., single view chest, per radiology interpretation showed increased right basilar airspace consolidation and right pleural effusion compared to previous on 01/01/19. This was followed-up with a CT of the chest with contrast with the patient having a history previously seen on CT a spiculated mass on the right side on this interpretation per radiology interpretation there was note of airspace consolidation of the right lower lung with underlying compressed lung and the large spiculated mass previously noted on the right was not seen on this current CT. There was also note of a small right pleural effusion on the CT of the chest. Mr. Matos, given his underlying risk factors of COPD and having recently been treated for right lower lobe pneumonia within the last 30 days, is going to be admitted for community acquired pneumonia for initiation of parenteral antibiotics and further evaluation. He was admitted in stable condition. HOSPITAL COURSE: After admission, the patient was originally treated at his previous admission with Rocephin and azithromycin. He was started on vancomycin, cefepime and Levaquin. He was also given some IV steroids and those were titrated down to an oral dosing during his hospital stay. He was very intolerant of being without ventilatory support and on BiPAP at night and even had to go on BiPAP several times during the day. He did use oxygen during the day when he did not require BiPAP, usually from 4 to 5 liters per minute. He was put on DVT prophylaxis with Lovenox. He did improve, but it was very slow. Sputum was collected for culture. He was titrated off his antibiotics and switched to monotherapy with Levaquin. He was not able to titrate off of his BiPAP and the BiPAP machine that was brought into the hospital from home actually had roaches in it. He did qualify for a new BiPAP machine, but due to poor living conditions at his home with burden infestation, [facility] would not take the BiPAP out to the house and, in fact, due to his severe hypercapnia, he qualified for noninvasive ventilation, but again [facility] would not take any respiratory equipment to his home without the house cleaned and fumigated. APS were consulted and they arranged for a clean up as well as an extermination at his home. He was titrated off of the IV steroids. He was on oral steroids as well as titrated to Levaquin only. He finished a 10-day regimen of that. During his stay, he was quite constipated and required several days of laxative treatment and did finally have a large bowel movement. Because he was unable to be discharged home until his house was cleaned and extermination service utilized, he will be discharged to [facility] to continue his ventilatory support and then he will be discharged home from that facility once those items are taken care of. He will be discharged today in stable condition to [facility]. LABORATORY: Initial WBC 9,700. It went as high as 12,900 and stabilized down to 9,600. He came in with a hemoglobin of 9.0 and hematocrit 29.9. He remained stable at hemoglobin 8.9 and hematocrit 30. He did have a left shift on his differential. His initial blood gas showed a pCO2 119, pO2 65, bicarb 57.8, O2 saturation 92.5 with pH 7.3. Followup ABG showed pCO2 68, pO2 55, pH 7.47 and O2 saturation 88.8%. Blood sugars ranged from 98 to greater than 400, but mostly stayed in the 149 to 200 range. His electrolytes showed a stable sodium of 144 with potassium 4.4. Chloride slightly low at 80 and came up to 90. Carbon dioxide remained high in the mid to upper 40s. BUN and creatinine were stable at 34 and 0.69. His magnesium required supplementation and was 1.6 and after supplementation was 2.5. Liver function tests were unremarkable. Urinalysis was negative. MICROBIOLOGY: Final blood cultures showed no growth after 5 days. Final sputum culture showed moderate gram variable coccobacilli and moderate mixed normal respiratory catalino. RADIOLOGY: Initial chest x-ray showed increased right basilar airspace consolidation and right pleural effusion. His final chest x-ray showed stable COPD and stable consolidation of the right lung base, stable diffuse bronchovascular thickening. His abdominal x-ray showed 1) Small right pleural effusion, pleural thickening present. There is also associated dependent consolidation in the right base. 2) Moderate colonic stool without obstruction. His chest CT showed 1) Airspace consolidation of the lower right lung. Character of underlying compressed lung is not assessed accurately. Large spiculated mass previously noted in the right lung base may have been removed and is not seen. 2) Small right pleural effusion. DISCHARGE PLAN: The patient will be discharged to [facility] in stable condition. He is to continue with his diabetic diet and to increase his activity as tolerated as well as a physical therapy evaluation. He is to followup with Dr. Hill Ayala within 1 to 2 weeks. In addition to his routine medications, I have also sent him home on Align, Neurontin and prednisone tapered down to 10 mg daily. At some point after his discharge to [facility], once his house has been exterminated and cleaned up, he is to be discharged home with noninvasive ventilation. He is to return to the hospital or followup with Dr. Ayala for any problems or complications. DISCHARGE MEDICATIONS: 1. Albuterol sulfate nebulizers. 2. Foradil. 3. Diltiazem. 4. Tamsulosin. 5. Furosemide. 6. Zocor. 7. Daliresp. 8. Ranitidine. 9. Metformin. 10. Tramadol. 11. Vitamin D3. 12. ProAir HFA. 13. Stiolto Respimat. 14. Cyanocobalamin. 15. Tums. 16. Metoprolol tartrate. 17. Temazepam. 18. Dulcolax. 19. MiraLAX. 20. Mucinex DM. 21. Prednisone taper down to 10 mg daily. 22. Align. 23. Neurontin. #[id number] [facility]
== END 2019-02-10 10:40 | DRG 193 ==
LOC: ER 10:31 → OBSVTOIN 12:38 → MS 12:38
PROVIDERS: ADMIT Nurse Practitioner Family; ATTEND Nurse Practitioner Acute Care
PROC: BW241ZZ Computerized Tomography (CT Scan) of Chest and Abdomen using Low Osmolar Contrast (ICD-10-PCS; principal; 2019-01-30)
DX: J18.1 Lobar pneumonia, unspecified organism (principal); J96.91 Respiratory failure, unspecified with hypoxia; J96.92 Respiratory failure, unspecified with hypercapnia; J43.9 Emphysema, unspecified; I10 Essential (primary) hypertension; E11.9 Type 2 diabetes mellitus without complications; E83.42 Hypomagnesemia; N40.0 Benign prostatic hyperplasia without lower urinary tract symptoms; D50.9 Iron deficiency anemia, unspecified; K59.00 Constipation, unspecified; E78.5 Hyperlipidemia, unspecified; Z99.81 Dependence on supplemental oxygen; Z59.8 Other problems related to housing and economic circumstances; E66.9 Obesity, unspecified; I25.10 Atherosclerotic heart disease of native coronary artery without angina pectoris; Z87.891 Personal history of nicotine dependence; Z79.84 Long term (current) use of oral hypoglycemic drugs; Z79.891 Long term (current) use of opiate analgesic; Z79.52 Long term (current) use of systemic steroids; Z79.899 Other long term (current) drug therapy

== ENCOUNTER 2019-03-03 16:56 | Observation (INO) | payer MEDICARE, OTHER ==
[2019-03-03] MEDS ORDERED: SODIUM CHLORIDE 0.9% (FLUSH) 10 ML SYG IV PRN ×2 (17:15→20:24)
[2019-03-03] MEDS ORDERED: IPRATROPIUM/ALBUTEROL 3 ML VIAL INH PRN (17:15)
[2019-03-03] MEDS ORDERED: FUROSEMIDE INJ 40 MG/4 ML VIAL IV ONE (17:15)
[2019-03-03] MEDS ORDERED: methylPREDNISolone SODIUM SUC 125 MG/2 ML VIAL IM ONE (17:17)
--- NOTE | 2019-03-03 17:31 | ED.PDOC ---
History of Present Illness - General Chief Complaint: Respiratory Problem Stated Complaint: SOB Time Seen by Provider: 03/03/19 17:08 Source: patient, family - History of Present Illness Initial Comments: 73-year-old male with a history of oxygen-dependent COPD presents to the emergency department complaining of increased shortness of breath onset today. The patient reports over the last 2 weeks since he has been in a [facility] and has been on 4 L nasal cannula oxygen instead of the normal 5 L he had been on at home that he has had increasing shortness of breath but today it is much worse. Cough is productive of white frothy sputum. He denies any chest pain. He denies any fever but has had periodic episodes of chills. He denies a history of congestive heart failure but has noticed bilateral lower extremity swelling over the last week. Symptoms are currently moderate in severity and it progressively worsened over time. Nothing he does seems to make them significantly better or worse. On review of the patient's medications from the [facility] he is on Lasix 40 mg daily. Allergies/Adverse Reactions: Allergies NO KNOWN ALLERGY Allergy (Verified 01/30/19 13:24) Home Medications: Ambulatory Orders Albuterol Sulfate Nebs [Proventil Nebs] 2.5 mg INH QID 03/13/15 Diltiazem HCl [Cardizem] 60 mg PO TID 03/13/15 Furosemide [Lasix] 40 mg PO BID 03/13/15 Metformin HCl [Glucophage] 500 mg PO BID 03/13/15 Roflumilast [Daliresp] 500 mcg PO DAILY 03/13/15 Simvastatin [Zocor] 10 mg PO BEDTIME 03/13/15 Tamsulosin HCl [Flomax] 0.4 mg PO BEDTIME 03/13/15 raNITIdine HCL [Zantac] 150 mg PO DAILY 03/13/15 Tramadol HCl 50 mg PO Q8HR PRN #20 tab 04/26/18 Albuterol Sulfate [Proair Hfa] 2 puff INH BID PRN 05/22/18 Calcium Carbonate (Antacid) [Tums] 500 mg PO DAILY PRN 05/22/18 Cholecalciferol [Vitamin D3] 400 unit PO BID 05/22/18 Cyanocobalamin [Vitamin B-12] 500 mcg PO DAILY 05/22/18 Ferrous Sulfate 325 mg PO DAILY 05/22/18 Metoprolol Tartrate [Lopressor] 25 mg PO BID 05/22/18 Temazepam [Restoril] 30 mg PO BEDTIME 05/22/18 Tiotropium Varna-Olodaterol [Stiolto Respimat 2.5-2.5 Mcg/Act] 2 puff INH DAILY 05/22/18 Bisacodyl [Dulcolax Tab] 10 mg PO DAILY tab 05/25/18 Polyethylene Glycol 3350 [Miralax] 17 gm PO DAILY 20 Days #30 pckt 05/25/18 Dextromethorphan-Guaifenesin [Mucinex Dm 30-600 mg] 1 tab PO BID 12/30/18 Bifidobacterium Infantis [Align] 4 mg PO BID #60 cap 02/10/19 Gabapentin [Neurontin] 300 mg PO TID #90 cap 02/10/19 Prednisone 10 mg PO DAILY #70 tab 02/10/19 Allopurinol [Zyloprim] 100 mg PO DAILY 03/03/19 Budesonide (Inhalation) [Budesonide] 0.25 mg INH BID 03/03/19 metOLazone [Zaroxolyn] 5 mg PO DAILY 03/03/19 Review of Systems - Review of Systems Constitutional: States: chills, malaise, weakness - generalized EENTM: Denies: nose congestion, throat pain Respiratory: States: cough, short of breath Cardiology: States: edema. Denies: chest pain, palpitations Gastrointestinal/Abdominal: States: constipation. Denies: abdominal pain, nausea, vomiting Genitourinary: Denies: dysuria, hematuria Musculoskeletal: Denies: joint pain, muscle pain Skin: Denies: lesions, rash Neurological: Denies: headache, numbness, weakness Past Medical History (General) - Patient Medical History Hx Seizures: No Hx Stroke: No Hx Asthma: No Hx of COPD: Yes - emphysema Hx Cardiac Disorders: No Hx Congestive Heart Failure: No Hx Pacemaker: No Hx Hypertension: Yes Hx Diabetes: Yes Hx Gastroesophageal Reflux: Yes Hx Cancer: No Hx MRSA: No - Vaccination History Hx Tetanus, Diphtheria Vaccination: Yes Hx Influenza Vaccination: Yes - 2018 Hx Pneumococcal Vaccination: Yes - Social History Hx Tobacco Use: Yes - Quit 2008 Hx Alcohol Use: No Hx Substance Use: No Hx Physical Abuse: No Hx Emotional Abuse: No Family Medical History - Family History Father Family History: No Known Hx Family Stroke: Yes - dad-ruptured brain anaeurysm Physical Exam - Physical Exam General Appearance: Alert, Obese Eyes, Ears, Nose, Throat Exam: PERRL/EOMI, pharynx normal Neck: full range of motion, normal inspection Respiratory: decreased breath sounds - bilateral bases, accessory muscle use, other - decreased air movement throughout Cardiovascular/Chest: tachycardia, other - 2+ pittine edema to BLE Peripheral Pulses: radial,right: 2+, radial,left: 2+ Gastrointestinal/Abdominal: non tender, soft Extremity: normal range of motion, pedal edema Neurologic: oleomargarine maker II-XII nml as tested, alert, other - moves all extremities without focal deficits Skin Exam: normal color, warm/dry Comments: Vital Signs - 24 hr 03/03/19 16:56 Temperature 98.7 F Pulse Rate [ 120 H Left Radial] Respiratory 36 H Rate Blood Pressure 158/82 [Right Arm] O2 Sat by Pulse 95 Oximetry Progress - Progress Progress: 03/03/19 18:40: Patient recheck: All lab and imaging results discussed with patient and family at the bedside along the plan for admission for continued frequent breathing treatments and observation. The patient has voiced understanding and agrees with the treatment plan. 03/03/19 18:52 Spoke with April Hawkins for the hospitalist service who agrees to admit the patient to the hospital for observation and continued treatment of his COPD exacerbation. - Results/Orders Results/Orders: 03/03/19 17:15 IV Care:Saline Lock per Protoc QSHIFT Telemetry .ONCE Ipratropium/Albuterol [Duoneb] 3 ml INH Q5M PRN Sodium Chloride 0.9% (Flush) [Saline Flush Syringe] 10 ml IV PRN PRN EKG STAT 03/03/19 18:07 BLOOD CULTURE Stat 03/04/19 09:00 Pulse Ox Daily 03/04/19 17:15 EKG STAT Laboratory Results - last 24 hr 03/03/19 03/03/19 03/03/19 16:50 16:50 16:50 WBC 10.0 RBC 3.96 L Hgb 9.9 L Hct 32.8 L MCV 82.7 MCH 24.9 L MCHC 30.1 L RDW 18.3 H Plt Count 277 MPV 8.0 Absolute Neuts (auto) 8.60 H Absolute Lymphs (auto) 0.80 L Absolute Monos (auto) 0.60 Absolute Eos (auto) 0.00 Absolute Basos (auto) 0.00 Neutrophils % 85.8 H Lymphocytes % 7.8 L Monocytes % 6.1 Eosinophils % 0.2 L Basophils % 0.1 PT 9.3 INR 0.93 pCO2 pO2 HCO3 ABG pH ABG O2 Saturation ABG Base Excess ABG Deoxyhemoglobin Oxyhemoglobin % Carboxyhemoglobin % Methemoglobin % Sat Calc Total Hemoglobin Sodium 139 Potassium 3.9 Chloride 82 L Carbon Dioxide 44 H Anion Gap 16.9 BUN 22 H Creatinine 0.95 BUN/Creatinine Ratio 23.2 H Random Glucose 191 H Serum Osmolality 286.0 Lactic Acid Calcium 9.5 Total Bilirubin 0.2 AST 25 ALT 29 Alkaline Phosphatase 101 Troponin I B-Natriuretic Peptide 25.2 Serum Total Protein 7.1 Albumin 3.3 Globulin 3.8 H Albumin/Globulin Ratio 0.9 L 03/03/19 03/03/19 03/03/19 16:50 17:32 17:47 WBC RBC Hgb Hct MCV MCH MCHC RDW Plt Count MPV Absolute Neuts (auto) Absolute Lymphs (auto) Absolute Monos (auto) Absolute Eos (auto) Absolute Basos (auto) Neutrophils % Lymphocytes % Monocytes % Eosinophils % Basophils % PT INR pCO2 88 H* pO2 79 L HCO3 48.9 ABG pH 7.370 ABG O2 Saturation 96.2 ABG Base Excess 20.4 ABG Deoxyhemoglobin 3.7 Oxyhemoglobin % 93.7 L Carboxyhemoglobin % 0.6 Methemoglobin % Sat 1.9 H Calc Total Hemoglobin 9.6 L Sodium Potassium Chloride Carbon Dioxide Anion Gap BUN Creatinine BUN/Creatinine Ratio Random Glucose Serum Osmolality Lactic Acid 1.3 Calcium Total Bilirubin AST ALT Alkaline Phosphatase Troponin I < 0.02 B-Natriuretic Peptide Serum Total Protein Albumin Globulin Albumin/Globulin Ratio 17:41 EKG interpreted by myself as sinus tach with PVCs rate 123. Left axis deviation. Normal intervals. No ST elevation and nonspecific ST-T changes. CXR read by radiology and reviewed by myself: IMPRESSION: Persistent abnormal lung bases with minimal stranding on the left and mixed pleural and parenchymal inflammatory changes in and opacification on the right, the same or slightly worse than previously seen. Electronically signed by: Carmine Mcguire MD 03/03/2019 6:31 PM [employer]OP WIRE STRINGER Departure - Departure Clinical Impression: COPD exacerbation, Recurrent pleural effusion on right RLL pneumonia Qualifiers: Pneumonia type: due to unspecified organism Qualified Code(s): J18.1 - Lobar pneumonia, unspecified organism Time of Disposition: 18:54 Condition: Fair Home Medications: Ambulatory Orders Albuterol Sulfate Nebs [Proventil Nebs] 2.5 mg INH QID 03/13/15 Diltiazem HCl [Cardizem] 60 mg PO TID 03/13/15 Furosemide [Lasix] 40 mg PO BID 03/13/15 Metformin HCl [Glucophage] 500 mg PO BID 03/13/15 Roflumilast [Daliresp] 500 mcg PO DAILY 03/13/15 Simvastatin [Zocor] 10 mg PO BEDTIME 03/13/15 Tamsulosin HCl [Flomax] 0.4 mg PO BEDTIME 03/13/15 raNITIdine HCL [Zantac] 150 mg PO DAILY 03/13/15 Tramadol HCl 50 mg PO Q8HR PRN #20 tab 04/26/18 Albuterol Sulfate [Proair Hfa] 2 puff INH BID PRN 05/22/18 Calcium Carbonate (Antacid) [Tums] 500 mg PO DAILY PRN 05/22/18 Cholecalciferol [Vitamin D3] 400 unit PO BID 05/22/18 Cyanocobalamin [Vitamin B-12] 500 mcg PO DAILY 05/22/18 Ferrous Sulfate 325 mg PO DAILY 05/22/18 Metoprolol Tartrate [Lopressor] 25 mg PO BID 05/22/18 Temazepam [Restoril] 30 mg PO BEDTIME 05/22/18 Tiotropium Varna-Olodaterol [Stiolto Respimat 2.5-2.5 Mcg/Act] 2 puff INH DAILY 05/22/18 Bisacodyl [Dulcolax Tab] 10 mg PO DAILY tab 05/25/18 Polyethylene Glycol 3350 [Miralax] 17 gm PO DAILY 20 Days #30 pckt 05/25/18 Dextromethorphan-Guaifenesin [Mucinex Dm 30-600 mg] 1 tab PO BID 12/30/18 Bifidobacterium Infantis [Align] 4 mg PO BID #60 cap 02/10/19 Gabapentin [Neurontin] 300 mg PO TID #90 cap 02/10/19 Prednisone 10 mg PO DAILY #70 tab 02/10/19 Allopurinol [Zyloprim] 100 mg PO DAILY 03/03/19 Budesonide (Inhalation) [Budesonide] 0.25 mg INH BID 03/03/19 metOLazone [Zaroxolyn] 5 mg PO DAILY 03/03/19 Decision To Admit - Decistion To Admit Decision to Admit Reason: Admit from ER Decision to Admit Date: 03/03/19 Decision to Admit Time: 18:50
--- NOTE | 2019-03-03 18:32 | RAD ---
EXAM DESCRIPTION: Chest,1 View CLINICAL HISTORY: 73 years Male, sob COMPARISON: February 02, 2019 TECHNIQUE: AP portable chest. FINDINGS: Basilar fibrotic lung disease at the left base is little changed from prior study without dense consolidation. On the right there is volume loss with pleural blunting and scarring and likely basilar atelectasis and/or residual infiltrative change the same or very slightly worse from previous examination. The upper lung staples remain clear. Heart size is felt to be within the limits of normal with vascularity in the upper range of normal. IMPRESSION: Persistent abnormal lung bases with minimal stranding on the left and mixed pleural and parenchymal inflammatory changes in and opacification on the right, the same or slightly worse than previously seen. Electronically signed by: Carmine Mcguire MD 03/03/2019 6:31 PM BANKRUPTCY MANAGER
[2019-03-03] MEDS ORDERED: AZITHROMYCIN 250 MG TAB PO ONE (18:54)
[2019-03-03] MEDS ORDERED: cefTRIAXone SODIUM 1 GM in SODIUM CHL 0.9% 50ML MIN-BAG+ 50 ML IVPB ONE (18:54)
[2019-03-03] MEDS ORDERED: SODIUM CHL 0.9% 50ML MIN-BAG+ 50 ML IVPB ONE (19:05)
[2019-03-03] MEDS ORDERED: cefTRIAXone SODIUM 1 GM VIAL ONE (19:05)
[2019-03-03] MEDS ORDERED: ONDANSETRON INJ 4 MG/2 ML VIAL IV PRN (20:24)
[2019-03-03] MEDS ORDERED: ALBUTEROL SULFATE 2.5 MG/3 ML VIAL NEB PRN (20:24)
[2019-03-03] MEDS ORDERED: TEMAZEPAM 15 MG CAP PO PRN (20:24)
[2019-03-03] MEDS ORDERED: IV SET AND CAP CHANGE INJ INJ SCH (20:30)
[2019-03-03] MEDS ORDERED: GLUCAGON INJ 1 MG VIAL SUBCU PRN (20:50)
[2019-03-03] MEDS ORDERED: traMADol HCL 50 MG TAB PO PRN (20:50)
[2019-03-03] MEDS ORDERED: DEXTROSE 50% 25 GM/50 ML SYG IV PRN (20:50)
[2019-03-03] MEDS ORDERED: SIMETHICONE 80 MG TAB PO PRN (20:54)
[2019-03-03] MEDS ORDERED: SIMVASTATIN 20 MG TAB PO SCH (21:00)
[2019-03-03] MEDS ORDERED: DILTIAZEM HCL 60 MG PO SCH (21:00)
[2019-03-03] MEDS ORDERED: metFORMIN HCL 500 MG TAB PO SCH (21:00)
[2019-03-03] MEDS ORDERED: TAMSULOSIN 0.4 MG CAP PO SCH (21:00)
[2019-03-03] MEDS ORDERED: METOPROLOL TARTRATE 25 MG TAB ONE (21:11)
[2019-03-03] MEDS ORDERED: diltiaZEM HCL TAB 30 MG TAB ONE (21:12)
[2019-03-03] MEDS: GABAPENTIN 300 MG CAP PO SCH (21:17)
[2019-03-03] MEDS: BIFIDOBACTERIUM INFANTIS 4 MG CAP PO SCH (21:17)
[2019-03-03] MEDS: FUROSEMIDE 40 MG TAB PO SCH (21:18)
[2019-03-03] MEDS: INSULIN LISPRO 100 UNITS/ML PEN SUBCU SCH (21:20)
[2019-03-03] MEDS: METOPROLOL TARTRATE 50 MG TAB PO SCH (21:20)
[2019-03-03] MEDS: SODIUM CHLORIDE 0.9% (FLUSH) 10 ML SYG IV SCH (21:21)
[2019-03-03] MEDS: BUDESONIDE NEBS 0.25 MG/2 ML INH INH SCH (21:23)
[2019-03-03] MEDS: ACETAMINOPHEN 325 MG TAB PO PRN (21:59)
--- NOTE | 2019-03-03 22:07 | CT ---
EXAMINATION: Noncontrast chest CT examination. REFERRAL DIAGNOSIS: Evidence of breath. Pleural effusion. COMPARISONS: Compared to today's chest radiograph and chest CT examination of January 30, 2019. PROCEDURE: Using low-dose helical technique, thin section axial images were performed through the chest without the administration of intravenous contrast material. CHEST CT FINDINGS: Dense multi segmental right lower lobe collapse with moderate size right pleural effusion. Distraction of the right lower lobe bronchus by a mass lesion measuring at least 1.5 cm in greatest transverse dimension on this noncontrast examination. No suspicious mid or upper right hilar or mediastinal lymphadenopathy on this noncontrast examination. No left hilar or mediastinal lymphadenopathy. Extensive centrilobular emphysema throughout both hyperexpanded mid and upper lung zones. No left pleural effusion. Left lung is otherwise clear. No pneumothorax. Cardiac size and pulmonary vasculature are normal. No pericardial effusion. Aortic valve annular calcification. Multiple healed bilateral rib fractures. No acute rib fractures. Partially visualized calcified cholelithiasis without convincing cholecystitis. IMPRESSION: 1. Right lower lobe collapse with moderate-sized right pleural effusion secondary to a visualized mass lesion obstructing the right lower lobe bronchus. Bronchoscopy should be considered for further detailed evaluation and tissue diagnosis. No evidence of contralateral pulmonary disease. 2. Severe centrilobular emphysematous damage in both mid and upper lung zones. No pneumothorax. No left pleural effusion. 3. Partially visualized calcified cholelithiasis without evidence of cholecystitis. 4. No evidence of metastatic disease to the bones. This exam was performed according to our departmental dose-optimization program, which includes automated exposure control, adjustment of the mA and/or kV according to patient size and/or use of iterative reconstruction technique. Electronically signed by: Mario Vela MD 03/03/2019 10:06 PM [facility]
[2019-03-04] MEDS ORDERED: cefTRIAXone SODIUM 1 GM VIAL ONE (05:19)
[2019-03-04] MEDS ORDERED: SODIUM CHL 0.9% 50ML MIN-BAG+ 50 ML IVPB ONE (05:19)
[2019-03-04] MEDS: ACETAMINOPHEN 325 MG TAB PO PRN (05:52)
[2019-03-04] MEDS ORDERED: cefTRIAXone SODIUM 1 GM in SODIUM CHL 0.9% 50ML MIN-BAG+ 50 ML IVPB SCH (06:00)
[2019-03-04] MEDS ORDERED: PANTOPRAZOLE SODIUM IV 40 MG VIAL IV SCH (06:30)
[2019-03-04] MEDS: INSULIN LISPRO 100 UNITS/ML PEN SUBCU SCH ×2 (07:29→11:28)
[2019-03-04] MEDS: IPRATROPIUM/ALBUTEROL 3 ML VIAL INH SCH ×2 (08:00→12:41)
[2019-03-04] MEDS ORDERED: predniSONE 10 MG TAB PO SCH (09:00)
[2019-03-04] MEDS ORDERED: metOLazone 2.5 MG TAB PO SCH (09:00)
[2019-03-04] MEDS ORDERED: POLYETHYLENE GLYCOL 3350 17 GM PCKT PO SCH (09:00)
[2019-03-04] MEDS ORDERED: diltiaZEM HCL TAB 30 MG TAB PO SCH (09:00)
[2019-03-04] MEDS ORDERED: metFORMIN HCL 500 MG TAB PO SCH (09:00)
[2019-03-04] MEDS ORDERED: BISACODYL TAB 5 MG TAB PO SCH (09:00)
[2019-03-04] MEDS ORDERED: NON-FORMULARY MEDICATION 1 EA MIS (Tiotropium Bromide-Olodaterol [Stiolto Respimat 2.5-2.5 INH SCH (09:00)
[2019-03-04] MEDS ORDERED: AZITHROMYCIN IV 500 MG in SODIUM CHLORIDE 0.9% 250ML 250 ML IVPB SCH (09:00)
[2019-03-04] MEDS ORDERED: NON-FORMULARY MEDICATION 1 EA MIS (Roflumilast [Daliresp] 500 MCG) PO SCH (09:00)
[2019-03-04] MEDS ORDERED: ALLOPURINOL 100 MG TAB PO SCH (09:00)
[2019-03-04] MEDS ORDERED: FERROUS SULFATE 325 MG TAB PO SCH (09:00)
[2019-03-04] MEDS ORDERED: SODIUM CHLORIDE 0.9% 250ML 250 ML ONE (09:32)
[2019-03-04] MEDS ORDERED: AZITHROMYCIN IV 500 MG VIAL IVPB ONE (09:34)
[2019-03-04] MEDS: BIFIDOBACTERIUM INFANTIS 4 MG CAP PO SCH (09:43)
[2019-03-04] MEDS: GABAPENTIN 300 MG CAP PO SCH (09:44)
[2019-03-04] MEDS: FUROSEMIDE 40 MG TAB PO SCH (09:44)
[2019-03-04] MEDS: METOPROLOL TARTRATE 50 MG TAB PO SCH (09:45)
[2019-03-04] MEDS: SODIUM CHLORIDE 0.9% (FLUSH) 10 ML SYG IV SCH (09:48)
[2019-03-04] MEDS: BUDESONIDE NEBS 0.25 MG/2 ML INH INH SCH (10:04)
[2019-03-04 12:34] VITALS: BP 154/75; TEMP 98.9
[2019-03-04 12:49] VITALS: O2SAT 96
--- NOTE | 2019-03-04 15:49 | SSS ---
DATE OF ADMISSION: 03/03/19 DATE OF DISCHARGE: 03/04/19 SUPERVISING PHYSICIAN: Carmine Figueroa MD DISCHARGE DIAGNOSIS: 1. Shortness of breath with significant history of oxygen-dependent chronic obstructive pulmonary disease. 2. Chronic obstructive pulmonary disease with chronic hypercapnia. He is oxygen- dependent at all times. 3. Right lower lobe lung collapse due to mass obstructing the right lower lobe bronchus. 4. Hypertension on medications. 5. Benign prostatic hypertrophy on medications. 6. Diabetes mellitus, type 2, on oral medications. 7. Coronary artery disease. 8. Chronic constipation. 9. Mild congestive heart failure with a normal BNP and ejection fraction of 55% on his echocardiogram 1 to 2 months ago. ADMITTING DIAGNOSIS: IMPRESSION: 1. Shortness of breath with significant history of oxygen-dependent chronic obstructive pulmonary disease with questionable exacerbation of his chronic obstructive pulmonary disease and his shortness of breath may be due to an increase in his right pleural effusion. 2. Chronic obstructive pulmonary disease with chronic hypercapnia. He is oxygen- dependent at all times. 3. Right lower lobe pleural effusion. 4. Hypertension on medications. 5. Benign prostatic hypertrophy on medications. 6. Diabetes mellitus, type 2, on oral medications. 7. Coronary artery disease. 8. Chronic constipation. 9. Mild congestive heart failure with a normal BNP and ejection fraction of 55% on his echocardiogram 1 to 2 months ago. CHIEF COMPLAINT: Shortness of breath. HISTORY OF PRESENT ILLNESS: This is a 73-year-old male patient with a significant history of chronic obstructive pulmonary disease. He actually was in the hospital just a few weeks ago. He also has to use a BiPAP machine at night. He has been at [facility] since his last admission. He has had increasing shortness of breath over the last several days, but it was mostly worse today. He has not had to [facility] as he has [facility], but he continues to have a cough with white frothy sputum. There are no complaints of chest pain or fever although he has had some chills. He also has a history of congestive heart failure and has had lower extremity edema. Nothing seems to alleviate the symptoms. His vital signs on admission showed temperature 98.7, heart rate 120, respiratory rate 36, O2 saturation 95% on 4 liters on nasal cannula. It did go down as low as 89% on 4 liters nasal cannula. His lab studies showed CBC with white count 10,000, hemoglobin 9.9, hematocrit 32.8. He has a left shift on differential, but he is on steroids at the jail. His blood gas shows a pCO2 of 88, pO2 79. O2 saturation 96%, pH 7.37. Sodium 139, potassium 3.9, chloride 82, carbon dioxide 44, BUN 22, creatinine 0.95, glucose 191, lactic acid 1.3. Chest x-ray shows persistent abnormal lung bases with minimal stranding on the left and mixed pleural and parenchymal inflammatory changes in an opacification on the right, the same worse than previously seen. He was given multiple breathing treatments in the Emergency Room as well as some Solu-Medrol. He was also given 40 mg of Lasix and ceftriaxone was also started as well as azithromycin. I was called for hospital admission. PAST MEDICAL HISTORY: 1. Right pulmonary nodule per CT of the chest in January of 2018. It was a 4 cm solid mass, lobulated and spiculated, suspicious for primary lung carcinoma. It did not show up again on the next CT. 2. Chronic obstructive pulmonary disease. 3. Benign prostatic hypertrophy. 4. Hyperlipidemia. 5. Type 2 diabetes mellitus on oral therapy. 6. Hypertension. 7. Coronary artery disease. 8. Congestive heart failure, mild, diastolic etiology with an ejection fraction of 55% per echocardiogram in December of 2018. PAST SURGICAL HISTORY: 1. Appendectomy. ALLERGIES: NO KNOWN DRUG ALLERGIES. FAMILY HISTORY: Positive for abdominal aortic aneurysm, chronic obstructive pulmonary disease and cerebrovascular accident. SOCIAL HISTORY: He is . He lives in [place]. He has been in [facility] for approximately 2 to 3 weeks. He has a history of smoking from age 16 to 64. He smoked approximately 2 packs per day and he quit 7 or 8 hears ago. He denies any ETOH or illicit drug use. REVIEW OF SYSTEMS: GENERAL: Positive for mild chills. Negative for fever or weight changes. HEENT: Negative for sinus symptoms, ear pain, vision changes or sore throat. RESPIRATORY: As per history of present illness. CARDIAC: Negative for chest pain, palpitations or tachycardia. GASTROINTESTINAL: Positive for chronic constipation. Negative for nausea, vomiting, diarrhea, or abdominal pain. GENITOURINARY: Negative for hematuria, dysuria or polyuria. MUSCULOSKELETAL: Negative for arthralgias, myalgias. SKIN: Negative for lesions or rashes. NEUROLOGIC: Negative for headache, weakness or seizures. PHYSICAL EXAMINATION: VITAL SIGNS: Temperature 97.8. Heart rate 100. Blood pressure 138/61. Respiratory rate 24. O2 saturation 94% on 2 liters nasal cannula. GENERAL: This is an obese 73-year-old male patient who is sitting up in his hospital bed. He is in mild respiratory distress. HEENT: Normocephalic, atraumatic. Pupils are equal and reactive. Oropharynx is clear. NECK: Supple without mass. RESPIRATORY: Diminished breath sounds throughout, especially on the right side. He does have a few scattered expiratory wheezes in all lung staples. At times, he is tachypneic and has to speak in short phrases due to his shortness of breath. CHEST: There is equal rise and fall of the chest with inspiration and expiration. CARDIOVASCULAR: Regular rate and rhythm. At times, he is slightly tachycardic. GASTROINTESTINAL: Abdomen is soft, obese, nontender. Bowel sounds are positive. EXTREMITIES: No cyanosis or clubbing. He does have +1 to +2 pedal edema bilaterally. NEUROLOGIC: Awake, alert and oriented times three. Cranial nerves II-XII are grossly intact. LABORATORY: Initial labs and films are as per history of present illness. Follow up labs were mostly unchanged. CT ABDOMEN/PELVIS: 1. Right lower lobe collapse with moderate-sized right pleural effusion secondary to a visualized mass lesion obstructing the right lower lobe bronchus. Bronchoscopy should be considered for further derailed evaluation and tissue diagnosis. No evidence of contralateral pulmonary disease. 2. Severe centrilobular emphysematous damage in both mid and upper lung zones. No pneumothorax. No left pleural effusion. 3. Partially visualized calcified cholelithiasis without evidence of cholecystitis. 4. No evidence of metastatic disease to the bones. HOSPITAL COURSE: Patient admitted to observation. He was given aggressive pulmonary hygiene as well as breathing treatments. Azithromycin and Rocephin were started in the Emergency Room and were continued. He continued on oral prednisone. A CT of the chest was ordered to evaluate the pleural effusion. Initially, I will talked to Dr. Roshan Lipscomb, general surgeon, about a thoracentesis, but after results of CT, patient should see utility operator. His home medications were restarted. I put him on sliding scale insulin protocol. A proton pump inhibitor was given for ulcer prophylaxis as well as SCDs for DVT prophylaxis. He had no further complaints of shortness of breath and he said he would follow up with his PCP, Hill Ayala. DISCHARGE INSTRUCTIONS: Patient will be discharged to [facility] in stable condition. He is to resume his previous medications, treatments, and oxygen therapy. He is to f/u with Dr. Ayala and recommend pulmonology referral. All previous orders are to be resumed. He is to return to hospital or see Dr. Ayala for any problems. DISCHARGE MEDICATIONS: 1. Albuterol. 2. Calcium carbonate. 3. Vitamin D3. 4. Cyanocobalamin. 5. Guaifenesin DM. 6. Temazepam. 7. Allopurinol. 8. Align. 9. Bisacodyl. 10. Budesonide inhalation. 11. Diltiazem. 12. Ferrous sulfate. 13. Furosemide. 14. Gabapentin. 15. Metoprolol. 16. Metolazone. 17. Metoprolol tartrate. 18. MiraLAX. 19. Prednisone. 20. Ranitidine. 21. Daliresp. 22. Simvastatin. 23. Tamsulosin. 24. Tiotropium bromide/Olodaterol. 25. Tramadol. #[id number] MTDD
== END 2019-03-04 13:50 ==
LOC: ER 16:56 → MS 19:35
PROVIDERS: ADMIT Nurse Practitioner Acute Care; ATTEND Nurse Practitioner Acute Care
DX: J44.1 Chronic obstructive pulmonary disease with (acute) exacerbation (principal); J98.19 Other pulmonary collapse; J90 Pleural effusion, not elsewhere classified; R91.8 Other nonspecific abnormal finding of lung field; I11.0 Hypertensive heart disease with heart failure; I50.32 Chronic diastolic (congestive) heart failure; N40.0 Benign prostatic hyperplasia without lower urinary tract symptoms; E11.9 Type 2 diabetes mellitus without complications; I25.10 Atherosclerotic heart disease of native coronary artery without angina pectoris; K59.09 Other constipation; E78.5 Hyperlipidemia, unspecified; K21.9 Gastro-esophageal reflux disease without esophagitis; I49.3 Ventricular premature depolarization; Z99.81 Dependence on supplemental oxygen; Z99.89 Dependence on other enabling machines and devices; Z79.51 Long term (current) use of inhaled steroids; Z79.84 Long term (current) use of oral hypoglycemic drugs; Z79.899 Other long term (current) drug therapy; Z87.891 Personal history of nicotine dependence; Z90.49 Acquired absence of other specified parts of digestive tract; Z82.3 Family history of stroke; Z82.5 Family history of asthma and other chronic lower respiratory diseases
CPT/HCPCS: 96365; 96375 ×2; 96376; 96372 ×2; Q0144; J0696 ×2; J1940; J2930; J7512; J7050 ×3; J0456; J7620 ×3; J7626 ×2; J1815; 80053 ×2; 82948 ×3; 36415 ×3; 85025 ×2; 87040 ×2; 83735; 85610; 84484; 83880; 36416; 83605; 71045; 71046; 71250; 94660; 94640 ×4; 94760 ×3; 82803; 36600; 82805; 99285; 93005; G0378

== ENCOUNTER → 2019-03-11 | Outpatient (CLI) | payer OTHER ==
--- NOTE | 2019-03-11 16:52 | CT ---
EXAM DESCRIPTION: Chest w/wo Contrast : Computed Tomography. CLINICAL HISTORY: 73 years Male CHRONIC OBSTRUCTIVE PULMONARY DISEASE COMPARISON: CT scan of the chest without contrast 03 March 2019. TECHNIQUE: Spiral-axial scans at 5 x 5 mm intervals through the lungs and thorax without and with IV contrast. 2.5 x 5 mm lung algorithm axial reconstructions. Coronal and sagittal 2.0 Mm reconstructions. Without with IV contrast No adverse reactions. Total Exam DLP: 3872.47 mGy-cm. This exam was performed according to our departmental dose-optimization program which includes automated exposure control, adjustment of the mA and/or kV according to patient size and/or use of iterative reconstruction technique; to reduce radiation dose to as low as reasonably achievable (ALARA). Nodule measurements under 10 mm are given as mean value of 3 axes diameters. FINDINGS: Lungs and large airways: Large volume of right lower lobe demonstrates irregular minimal enhancement with atelectasis. Aerated right lower lobe is mostly central and superior. Complete obstruction of the right lower lobe bronchus or in the lobar bronchi began. Obstruction interpreted to be intrinsic. The lung is surrounded by pleural effusion and pleural loculation. Minimal effusion in the right middle lobe with posterior dependent atelectasis in the right middle lobe and right lower lobe. Dilated airspaces and prominent blebs in the bilateral upper lobes. Occasional peripheral groundglass density. No abnormal nodules and no masses. Heterogeneous mosaic density in the left lung. Pleural parenchymal changes in the inferior lingula and inferior left lower lobe. Pleural spaces: No effusion or loculation extends to the posterior right apex. No pneumothorax. Pleural thickening in the left base. Mediastinum and [place]: mediastinum and trachea are shifted to the right, more inferiorly than superiorly. Small lymph nodes in the upper and mid mediastinum. 1.9 x 1.5 cm lymph node in the subcarinal space. 1.4 x 1.2 cm lymph node in the right right hilar space. These were present on the prior study. No enlarged nodes in the mid or upper mediastinum or left hilum. Great vessels and Heart: Atherosclerotic changes brachiocephalic vessels, aortic arch and descending thoracic aorta. Collaterals in the upper right chest and mid chest wall after injection. Also right shoulder. Soft tissues of neck base, axillae, and chest wall: Collaterals as described. Bilateral small axillary lymph nodes. Upper abdomen: Please see report on the CT scan abdomen and pelvis today. Osseous structures: Decreased bone density. Minimal thoracic spondylosis. Minimal sternoclavicular arthrosis. IMPRESSION: 1. Atelectasis and volume loss involving the right lower lobe with irregular intrinsic obstruction in the junction of the distal right lower lobe bronchus and origins of the right lower lobe lobar bronchi. Minimal air bronchograms in the right lower lobe. Enlarged right hilar lymph nodes and subcarinal lymph nodes. Consider bronchoscopic evaluation and possible endobronchial biopsy and transbronchial lymph node biopsy. 2. Loculated and nonloculated pleural effusion involving a large volume of the right hemithorax. Posterior dependent atelectasis right upper lobe and right middle lobe. Emphysematous changes bilateral upper lobes and less prominent in the left lower lobe. Electronically signed by: Db Augustin MD 03/11/2019 4:51 PM ARABIC PROFESSOR
--- NOTE | 2019-03-11 17:17 | CT ---
EXAM DESCRIPTION: Abdomen/Pelvis w/wo Contrast: Computed Tomography. CLINICAL HISTORY: OTHER ASCITES COMPARISON: Abdomen pelvis CT scan 13 March 2015. TECHNIQUE: Spiral-axial scans at 5 x 5 mm intervals through the abdomen and pelvis before and after 75 mL Optiray 320 nonionic IV contrast. No oral contrast. Coronal and sagittal 2.0 mm reconstructions, without and with IV contrast.. 5 mm Delayed helical-axial scans, liver through the pubic symphysis. Repeat reconstructions No adverse reactions. Total Exam DLP 2772 mGy - cm. This exam was performed according to our departmental CT dose-optimization program which includes automated exposure control, adjustment of the mA and/or kV according to patient size and/or use of iterative reconstruction technique; to reduce radiation dose to as low as reasonably achievable (ALARA). FINDINGS: Lung bases and pleura: Please see report and images CT scan thorax without and with IV contrast on this visit. Liver, Stomach, Spleen, Adrenal Glands: Long axis right hepatic lobe 17.8 cm. No focal lesions. Normal caliber of the ducts. Stomach unremarkable. Other organs are negative. Pancreas, Gallbladder, Ducts: Large cystic structures or multi loculated cystic structure involving the head of the pancreas measuring 4.7 x 3.1 cm in the axial plane and 2.9 cm craniocaudal. Pancreatic duct not dilated. Minimal fatty infiltration of the remainder of the pancreas. This structure is exhibiting mass effect on the duodenum. Not present on the prior study. No surrounding fatty inflammatory changes. Normal caliber of the common bile duct. Gallbladder is dilated with occasional cysts apparent wall thickening lateral fundal aspect, and inferior medial calcifications and possibly non-radiodense stones and sludge. Gallbladder has a similar appearance on the prior study Kidneys and Ureters: 6.7 cm simple cyst anterior and lateral left kidney with a second 1.5 cm cyst in the left kidney and smaller cysts and 90 right kidney. No echogenic stones hydronephrosis or perinephric fluid bilaterally. Mesentery: No fatty stranding or fascial thickening. No free air or free fluid. Aorta: Moderate atherosclerotic calcification including the major branch vessels extending into the bilateral common iliac arteries. No para-aortic mass. Small Bowel: Gas and fluid with minimal distention of the bowel more proximally than distally but similar appearance on the prior study in 2015. No transition point or definitive obstruction. Terminal Ileum/Cecum: Normal caliber TI with moderate matter in the cecum. Appendix not visualized. Colon: Moderate amount of fecal material down to the mid descending colon with minimal fecal matter continuing into the sigmoid distending the rectum. Small diverticula in the sigmoid and distal descending colon but no complications. Pelvic Organs: Bladder minimally distended. Moderate enlarged prostate gland with central calcifications, abutting the seminal vesicles and base of the bladder. Spine and Bony Pelvis: Disc space narrowing thoracic spine. Early arthrosis left SI joint. Minimal bilateral hip joint space narrowing. Geographic lesions in the bilateral femoral heads with sclerotic margins consistent with bilateral osteonecrosis of the femoral heads but no deformity at this time. No fractures. Abdominal Wall/Back Soft Tissues: Umbilical diastasis with bowel pushing forward but no herniation. Anterior muscle atrophy in the abdominal wall. Containing IMPRESSION: 1. Multiple cysts or multiloculated cystic structure in the head of the pancreas more likely then originating from the duodenum. No inflammatory changes. Normal caliber of the common bile duct and pancreatic duct. 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 Not present on the prior study. Elongated gallbladder with sludge and stones with a similar appearance on the prior study. Hepatomegaly stable since the prior study. 2. Renal cysts appear stable. Progressive atherosclerotic calcifications in the aorta. Minimal distention of the proximal small bowel with fluid and scattered air but no significant air-fluid levels and no obstruction or transition point. 3. Umbilical diastasis with mild protrusion of the bowel but no definite hernia. Stable since the prior study. Bilateral osteonecrosis of the femoral heads and hip joint space narrowing not significantly changed since the prior study. Diverticulosis in the distal colon with no complications. No significant change since the prior study. Electronically signed by: Db Augustin MD 03/11/2019 5:[address] [facility]
== END ==
LOC: CT 13:00
PROVIDERS: ATTEND Nurse Practitioner
DX: R18.8 Other ascites (principal); K86.2 Cyst of pancreas; N28.1 Cyst of kidney, acquired; M62.08 Separation of muscle (nontraumatic), other site; K57.30 Diverticulosis of large intestine without perforation or abscess without bleeding; R16.0 Hepatomegaly, not elsewhere classified; M87.851 Other osteonecrosis, right femur; M87.852 Other osteonecrosis, left femur; K80.20 Calculus of gallbladder without cholecystitis without obstruction; I70.0 Atherosclerosis of aorta; J98.11 Atelectasis; J98.09 Other diseases of bronchus, not elsewhere classified; R59.0 Localized enlarged lymph nodes; J90 Pleural effusion, not elsewhere classified; J43.9 Emphysema, unspecified

== ENCOUNTER 2019-03-14 21:36 | Emergency (ER) | payer MEDICARE, OTHER ==
[2019-03-14] MEDS ORDERED: IPRATROPIUM/ALBUTEROL 3 ML VIAL INH ONE (21:49)
[2019-03-14] MEDS ORDERED: SODIUM CHLORIDE 0.9% (FLUSH) 10 ML SYG IV PRN (21:49)
[2019-03-14] MEDS ORDERED: FUROSEMIDE INJ 40 MG/4 ML VIAL IV ONE (21:49)
[2019-03-14] MEDS ORDERED: SODIUM CHLORIDE 0.9% 1000ML 1,000 ML IVS PRN (21:49)
[2019-03-14] MEDS ORDERED: methylPREDNISolone SODIUM SUC 125 MG/2 ML VIAL IV ONE (21:53)
--- NOTE | 2019-03-14 22:02 | ED.PDOC ---
History of Present Illness - General Chief Complaint: Respiratory Problem Stated Complaint: difficulty breathing Time Seen by Provider: 03/14/19 21:48 Source: RN notes reviewed, Vital Signs reviewed, EMS notes reviewed, EMS, snf records Exam Limitations: physical impairment Additional Information: this is a 73-year-old gentleman who presents to the emergency department from the sn[facility] with complaints of shortness of breath. EMS states that on arrival his sats were down into the 60s. They did give her Xopenex treatment and noted some modest improvement. Upon arrival he was in his 80s. He is now 92% on 5 L nc. Nursing staff states that he was started on Augmentin 3 days ago for pneumonia.it appears to be on his MAR that he is also on prednisone. No reports of fever today.in review of his medical record he was discharged on 03/03/19 after being treated for COPD exacerbation. He had a recent echocardiogram in the last couple of months that showed an ejection fraction of 55%. He had a CT evaluation of the lungs on 03/11/19 that revealed evidence of a right-sided loculated pleural effusion. He has been recommended to see a professor of early childhood education for possible bronchoscopy and biopsy. He has been noted to have a mass in the right lower lobe suspicious for neoplasm. - History of Present Illness Allergies/Adverse Reactions: Allergies NO KNOWN ALLERGY Allergy (Verified 01/30/19 13:24) Home Medications: Ambulatory Orders Albuterol Sulfate Nebs [Proventil Nebs] 2.5 mg INH QID 03/13/15 Diltiazem HCl [Cardizem] 60 mg PO TID 03/13/15 Furosemide [Lasix] 40 mg PO BID 03/13/15 Metformin HCl [Glucophage] 500 mg PO BID 03/13/15 Roflumilast [Daliresp] 500 mcg PO DAILY 03/13/15 Simvastatin [Zocor] 10 mg PO BEDTIME 03/13/15 Tamsulosin HCl [Flomax] 0.4 mg PO BEDTIME 03/13/15 raNITIdine HCL [Zantac] 150 mg PO DAILY 03/13/15 Tramadol HCl 50 mg PO Q8HR PRN #20 tab 04/26/18 Albuterol Sulfate [Proair Hfa] 2 puff INH BID PRN 05/22/18 Calcium Carbonate (Antacid) [Tums] 500 mg PO DAILY PRN 05/22/18 Cholecalciferol [Vitamin D3] 400 unit PO BID 05/22/18 Cyanocobalamin [Vitamin B-12] 500 mcg PO DAILY 05/22/18 Ferrous Sulfate 325 mg PO DAILY 05/22/18 Metoprolol Tartrate [Lopressor] 25 mg PO BID 05/22/18 Temazepam [Restoril] 30 mg PO BEDTIME 05/22/18 Tiotropium [place]-Olodaterol [Stiolto Respimat 2.5-2.5 Mcg/Act] 2 puff INH DAILY 05/22/18 Bisacodyl [Dulcolax Tab] 10 mg PO DAILY tab 05/25/18 Polyethylene Glycol 3350 [Miralax] 17 gm PO DAILY 20 Days #30 pckt 05/25/18 Dextromethorphan-Guaifenesin [Mucinex Dm 30-600 mg] 1 tab PO BID 12/30/18 Bifidobacterium Infantis [Align] 4 mg PO BID #60 cap 02/10/19 Gabapentin [Neurontin] 300 mg PO TID #90 cap 02/10/19 Prednisone 10 mg PO DAILY #70 tab 02/10/19 Allopurinol [Zyloprim] 100 mg PO DAILY 03/03/19 Budesonide (Inhalation) [Budesonide] 0.25 mg INH BID 03/03/19 Amoxicillin & Pot Clavulanate [Augmentin Tab] 875 mg PO BID 03/14/19 Review of Systems - Review of Systems Constitutional: States: malaise Respiratory: States: cough, short of breath Cardiology: States: no symptoms reported, edema Musculoskeletal: States: no symptoms reported Skin: States: no symptoms reported Neurological: States: no symptoms reported Endocrine: States: other - history of diabetes mellitus on oral meds Hematologic/Lymphatic: States: no symptoms reported Unable to Obtain Due To: clinical condition Past Medical History (General) - Patient Medical History Hx Seizures: No Hx Stroke: No Hx Asthma: No Hx of COPD: Yes - emphysema Hx Cardiac Disorders: No Hx Congestive Heart Failure: No Hx Pacemaker: No Hx Hypertension: Yes Hx Diabetes: Yes Hx Gastroesophageal Reflux: Yes Hx Cancer: No Hx MRSA: No - Vaccination History Hx Tetanus, Diphtheria Vaccination: Yes Hx Influenza Vaccination: Yes - 2018 Hx Pneumococcal Vaccination: Yes Immunizations Up to Date: Yes - Social History Hx Tobacco Use: Yes - Quit 2008 Hx Alcohol Use: No Hx Substance Use: No Hx Physical Abuse: No Hx Emotional Abuse: No - Activities of Daily Living Long-Term/Assisted Living (if applicable):: [facility] Family Medical History - Family History Father Family History: No Known Hx Family Stroke: Yes - dad-ruptured brain anaeurysm Physical Exam - Physical Exam General Appearance: Lethargic, Obvious distress, Ill Appearing Eyes, Ears, Nose, Throat Exam: PERRL/EOMI, other - dry oropharynx Neck: non-tender, full range of motion, supple, normal inspection Respiratory: chest non-tender, respiratory distress, decreased breath sounds - throughout, accessory muscle use, wheezing, expiration Cardiovascular/Chest: no gallop, no JVD, no murmur, tachycardia, other - pitting edema to the lower extremities bilaterally Gastrointestinal/Abdominal: normal bowel sounds, non tender, soft, no organomegaly, no pulsatile mass Rectal Exam: deferred Extremity: pedal edema Neurologic: depressed affect, disoriented x 3 Skin Exam: diaphoresis Lymphatic: no adenopathy Progress - Progress Progress: 03/14/19 22:06 MDM: Patient is a 73-year-old male with known history of COPD and recent development of a loculated right-sided pleural effusion. He has a right-sided pulmonary mass it was described as spiculated. Pulmonary referral has been planned but I do not believe that he has seen the professor of early childhood education yet. He had a recent echocardiogram with a 55% ejection fraction. He was dismissed from the hospital on 03/03/19 after treatment of a COPD exacerbation. In the past 3 days he's been on Augmentin and some oral prednisone. He has had significant decline today. We'll evaluate for pneumonia. We will look for pneumothorax as well. We'll give Solu-Medrol and some Lasix at present. He 3+ pitting edema bilaterally. We'll hang fluids and bolus if needed. We'll also intubate if necessary. We're awaiting ABG. 03/14/19 22:33 the patient is on BiPAP at night typically at the snf. We will go ahead and give him a trial of that currently. We will perform it for the next 30-40 minutes and get another repeat ABG and see if that has improved or not. If not then we will likely intubate at that point. I'm expecting to transfer this patient to [facility] for further workup of the right-sided loculated pleural effusion and mass. We will also start him on Levaquin at present. Fluids are now running at 250 cc an hour Liriano is being placed. I gave Sheri upon presentation noting the clinical scenario and 3+ pitting edema. 03/14/19 22:58 ECG unremarkable. On bipap. Liriano placed. Consider intubation prior to discharge. Will get another abg. 03/14/19 23:17 the patient is starting to feel better. He is wanting to get out of bed and more physically active. He is still on BiPAP. We will give him a little bit of anxiolytic and titrate as needed.we'll initiate transfer process of his ABG looks good enough to emergent intubation. 03/14/19 23:34 patient reevaluated. His O2 sats are 95%. His respirations have decreased as well. PaO2 at 130 decreased PCO2 to 85 and a pH of 7.39. Will move ahead and start the process of transfer to [facility].This was at the request of the family. - Results/Orders Results/Orders: FINDINGS: The heart is mildly enlarged. There is right basilar airspace disease or atelectasis. There is platelike atelectasis in the left lung base. There is a moderate right pleural effusion. There is no pneumothorax. There are no acute osseous findings. IMPRESSION: No change. Electronically signed by: J Luis Lopez MD 03/14/2019 10:23 PM [facility] [employer] Laboratory Tests 03/14/19 03/14/19 03/14/19 21:52 21:52 21:52 WBC 11.0 H RBC 3.69 L Hgb 9.1 L Hct 30.1 L MCV 81.6 MCH 24.7 L MCHC 30.2 L RDW 17.3 H Plt Count 237 MPV 7.7 Absolute Neuts (auto) 8.90 H Absolute Lymphs (auto) 1.00 Absolute Monos (auto) 1.00 H Absolute Eos (auto) 0.00 Absolute Basos (auto) 0.00 Neutrophils % 81.2 H Lymphocytes % 9.5 L Monocytes % 8.7 Eosinophils % 0.3 L Basophils % 0.3 D-Dimer, Quantitative 0.71 H* pCO2 pO2 HCO3 ABG pH ABG O2 Saturation ABG Base Excess ABG Deoxyhemoglobin Oxyhemoglobin % Carboxyhemoglobin % Methemoglobin % Sat Calc Total Hemoglobin Sodium 139 Potassium 3.8 Chloride 81 L Carbon Dioxide 44 H Anion Gap 17.8 BUN 18 Creatinine 0.76 BUN/Creatinine Ratio 23.7 H Random Glucose 106 H Serum Osmolality 279.9 Calcium 9.2 Total Bilirubin 0.3 AST 19 ALT 21 Alkaline Phosphatase 88 B-Natriuretic Peptide 50.7 Serum Total Protein 7.2 Albumin 3.0 L Globulin 4.2 H Albumin/Globulin Ratio 0.7 L 03/14/19 21:52 WBC RBC Hgb Hct MCV MCH MCHC RDW Plt Count MPV Absolute Neuts (auto) Absolute Lymphs (auto) Absolute Monos (auto) Absolute Eos (auto) Absolute Basos (auto) Neutrophils % Lymphocytes % Monocytes % Eosinophils % Basophils % D-Dimer, Quantitative pCO2 94 H* pO2 77 L HCO3 50.6 ABG pH 7.350 ABG O2 Saturation 96.4 ABG Base Excess 22.1 ABG Deoxyhemoglobin 3.5 Oxyhemoglobin % 93.8 L Carboxyhemoglobin % 0.6 Methemoglobin % Sat 2.1 H Calc Total Hemoglobin 8.5 L Sodium Potassium Chloride Carbon Dioxide Anion Gap BUN Creatinine BUN/Creatinine Ratio Random Glucose Serum Osmolality Calcium Total Bilirubin AST ALT Alkaline Phosphatase B-Natriuretic Peptide Serum Total Protein Albumin Globulin Albumin/Globulin Ratio - EKG/XRAY/CT EKG: Sinus, no ST T wave changes Comments: rate 99, normal axis Departure - Departure Clinical Impression: Hypoxemia, Recurrent pleural effusion on right, Hypercarbia, Right lower lobe lung mass Respiratory failure Qualifiers: Chronicity: acute on chronic Respiratory failure complication: hypoxia and hypercapnia Qualified Code(s): J96.21 - Acute and chronic respiratory failure with hypoxia COPD (chronic obstructive pulmonary disease) Qualifiers: COPD type: COPD with acute exacerbation Qualified Code(s): J44.1 - Chronic obstructive pulmonary disease with (acute) exacerbation Time of Disposition: 23:47 Disposition: Transfer to Hospital Condition: Serious Departure Forms: ED Discharge - Pt. Copy, Patient Portal Self Enrollment Referrals: SHEMAR FAJARDO [Primary Care Provider] - 1-2 Weeks Home Medications: Ambulatory Orders Albuterol Sulfate Nebs [Proventil Nebs] 2.5 mg INH QID 03/13/15 Diltiazem HCl [Cardizem] 60 mg PO TID 03/13/15 Furosemide [Lasix] 40 mg PO BID 03/13/15 Metformin HCl [Glucophage] 500 mg PO BID 03/13/15 Roflumilast [Daliresp] 500 mcg PO DAILY 03/13/15 Simvastatin [Zocor] 10 mg PO BEDTIME 03/13/15 Tamsulosin HCl [Flomax] 0.4 mg PO BEDTIME 03/13/15 raNITIdine HCL [Zantac] 150 mg PO DAILY 03/13/15 Tramadol HCl 50 mg PO Q8HR PRN #20 tab 04/26/18 Albuterol Sulfate [Proair Hfa] 2 puff INH BID PRN 05/22/18 Calcium Carbonate (Antacid) [Tums] 500 mg PO DAILY PRN 05/22/18 Cholecalciferol [Vitamin D3] 400 unit PO BID 05/22/18 Cyanocobalamin [Vitamin B-12] 500 mcg PO DAILY 05/22/18 Ferrous Sulfate 325 mg PO DAILY 05/22/18 Metoprolol Tartrate [Lopressor] 25 mg PO BID 05/22/18 Temazepam [Restoril] 30 mg PO BEDTIME 05/22/18 Tiotropium [place]-Olodaterol [Stiolto Respimat 2.5-2.5 Mcg/Act] 2 puff INH DAILY 05/22/18 Bisacodyl [Dulcolax Tab] 10 mg PO DAILY tab 05/25/18 Polyethylene Glycol 3350 [Miralax] 17 gm PO DAILY 20 Days #30 pckt 05/25/18 Dextromethorphan-Guaifenesin [Mucinex Dm 30-600 mg] 1 tab PO BID 12/30/18 Bifidobacterium Infantis [Align] 4 mg PO BID #60 cap 02/10/19 Gabapentin [Neurontin] 300 mg PO TID #90 cap 02/10/19 Prednisone 10 mg PO DAILY #70 tab 02/10/19 Allopurinol [Zyloprim] 100 mg PO DAILY 03/03/19 Budesonide (Inhalation) [Budesonide] 0.25 mg INH BID 03/03/19 Amoxicillin & Pot Clavulanate [Augmentin Tab] 875 mg PO BID 03/14/19 Critical Care Note - Critical Care Note Total Time (mins): 60 - Tx of resp distress, review of medical records, use of bipap, reevaluation of abg, Transfer to Outside Facility - Transfer Information Decision to Transfer Date: 03/14/19 Decision to Transfer Time: 23:38 Reason for Transfer: required specialist not available Accepting Provider:: Manuela Cheung MD Accepting Facility: [place]
--- NOTE | 2019-03-14 22:25 | RAD ---
CLINICAL HISTORY: sob COMPARISON: 03/04/2019. TECHNIQUE: XR CHEST 1 VIEW 03/14/2019 9:50 PM STAFF DESIGN ENGINEER FINDINGS: The heart is mildly enlarged. There is right basilar airspace disease or atelectasis. There is platelike atelectasis in the left lung base. There is a moderate right pleural effusion. There is no pneumothorax. There are no acute osseous findings. IMPRESSION: No change. Electronically signed by: J Luis Lopez MD 03/14/2019 10:23 PM STAFF DESIGN ENGINEER
[2019-03-14] MEDS ORDERED: levoFLOXacin 750MG IV 750 MG in PREMIX BAG 1 BAG IVPB ONE (22:36)
[2019-03-15 00:54] VITALS: TEMP 98.3
[2019-03-15 01:03] VITALS: BP 134/70
[2019-03-15 01:24] VITALS: O2SAT 97
== END 2019-03-15 02:09 | disposition short-term general hospital (02) ==
LOC: ER 21:36
DX: J96.21 Acute and chronic respiratory failure with hypoxia (principal); J96.22 Acute and chronic respiratory failure with hypercapnia; J44.1 Chronic obstructive pulmonary disease with (acute) exacerbation; R91.8 Other nonspecific abnormal finding of lung field; J90 Pleural effusion, not elsewhere classified; I10 Essential (primary) hypertension; E11.9 Type 2 diabetes mellitus without complications; K21.9 Gastro-esophageal reflux disease without esophagitis; Z87.891 Personal history of nicotine dependence; Z79.84 Long term (current) use of oral hypoglycemic drugs; Z79.899 Other long term (current) drug therapy
CPT/HCPCS: 36415; 36600; 71045; 80053; 81001; 82803; 82805; 83605; 83880; 84484; 85025; 85379; 87040; 93005; 94640; 94660; J1940; J1956; J2060; J2930; J7030; J7620